=== PATIENT | male | born 1945 | race Caucasian/White ===

== ENCOUNTER 2016-08-14 09:49 | Inpatient (IN) | payer OTHER ==
[2016-07-22 15:13] VITALS: BMI 31.0
--- NOTE | 2016-07-22 15:56 | PAT Medication Instructions ---
Service Date Jul 22, 2016. Current Home Medication List No Active Prescriptions or Reported Meds Medication Instructions For Your Scheduled Surgery No Active Prescriptions or Reported Meds-- Please contact PAT department if started on any medications prior to surgery. If you have any questions please call us at [phone] (Madhavi Carrington PA-C) or [phone] or [phone]
[2016-07-22 16:39] LABS: BASO % 0.2 %; BASO ABS # 0.02 K/uL (0-0.2); COMPLETE YES; EOS % 0.7 %; HEMATOCRIT 42.7 % (42-52); IG% 0.2 %; LYMPH % 28.8 %; LYMPH ABS # 2.48 K/uL (1.2-3.4); MEAN CELL VOLUME 93.2 fL (80-100); MEAN CORPUSCULAR HEMOGLOBIN 31.9 pg (25-34); MEAN CORPUSCULAR HGB CONC 34.2 g/dl (32-36); MEAN PLATELET VOLUME 10.2 fL (7.4-10.4); MONO % 12.1 %; PLATELET COUNT 253 K/uL (130-400); RED BLOOD COUNT 4.58 M/uL (4.7-6.1); URINE APPEARANCE CLEAR (CLEAR); URINE BILIRUBIN NEG (NEG); URINE COLOR YELLOW; URINE NITRITE NEG (NEG); URINE SPECIFIC GRAVITY 1.016 (1.000-1.030); UROBILINOGEN NEG (NEG); ZZUR CULT IF INDIC CLEAN CATCH NO
--- NOTE | 2016-07-22 16:39 | DIAGNOSTIC IMAGING REPORT ---
CHEST 2 VIEWS ROUTINE CLINICAL HISTORY: Preoperative chest COMPARISON STUDY: No previous studies for comparison. FINDINGS: The cardiac and mediastinal contours are normal. There is no evidence of focal pulmonary consolidation. There is no evidence of failure. No pleural effusions are visualized.[ IMPRESSION: No active disease in the chest. Electronically signed by: Moise Roe M.D. 07/22/2016 4:38 PM
[2016-07-22 16:45] LABS: MANUAL MICROSCOPIC REQUIRED? NO; REVIEW REQ? NO
[2016-07-22 16:54] LABS: PARTIAL THROMBOPLASTIN RATIO 1.1; PROTHROMBIN TIME (PATIENT) 10.7 SECONDS (9.0-12.0)
[2016-07-22 16:59] LABS: BUN/CREATININE RATIO 25.1 (10-20); CALCIUM 8.6 mg/dl (8.5-10.1); CREATININE 0.89 mg/dl (0.60-1.40); POTASSIUM 4.1 mmol/L (3.5-5.1)
[2016-07-23 05:50] LABS: ESTIMATED AVERAGE GLUCOSE 128 mg/dl; HA1C FLAG Normal (Normal)
--- NOTE | 2016-08-13 19:45 | HISTORY & PHYSICAL EXAMINATION ---
DATE OF ADMISSION: 08/14/2016 CHIEF COMPLAINT: Chronic right knee pain. HISTORY OF PRESENT ILLNESS: This is a 70-year-old male patient of Dr. Reyes'dawson complaining of chronic right knee pain, longstanding, now progressively getting worse. The patient has been diagnosed with end-stage osteoarthritis per clinical and radiographic exams. He has failed conservative treatment including acetaminophen and intraarticular injections. He has increased pain with weightbearing activities and his pain does interfere with his activities of daily living. PAST MEDICAL HISTORY: Acid reflux, otherwise the patient is a healthy 70-year-old male with no history of heart problems, lung problems, diabetes or cancer history. SOCIAL HISTORY: Nonsmoker, occasional drinker. PAST SURGICAL HISTORY: Back surgery, hernia surgery, left knee arthroscopy and carpal tunnel surgery. FAMILY HISTORY: Noncontributory. REVIEW OF SYSTEMS: The patient complains of chronic right knee pain, otherwise denies any shortness of breath, chest pain, nausea, vomiting or any other joint complaints. MEDICATIONS: None. ALLERGIES: None. PHYSICAL EXAMINATION: GENERAL: Well-developed, well-nourished 70-year-old male in no acute distress. He is alert and oriented x3 and pleasant. HEENT: Normocephalic, atraumatic. Extraocular motions are intact. Pupils are equal and reactive to light. HEART: Regular rate and rhythm, no murmurs appreciated. LUNGS: Clear. ABDOMEN: Soft, nontender, bowel sounds are present. EXTREMITIES: Right knee reveals a limited range of a negative 15-125 degrees. He has medial joint line tenderness with a varus deformity. He has a mild effusion. He has 5/5 strength. NEUROLOGIC: Neurovascularly, he is intact in his right lower extremity. DIAGNOSES: Right knee end-stage osteoarthritis, otherwise a healthy 70-year-old male. He does have acid reflux. PLAN: The patient was advised of his diagnosis. Indications, risks, benefits, postop course have all been reviewed. The patient wishes to proceed with a right total knee arthroplasty. Necessary consent forms, preoperative testing and clearances will be obtained.
[2016-08-14] VITALS (9 sets, daily range): BP systolic 136–166; BP diastolic 70–92; PULSE 66–95; TEMP 36.3–36.9; O2SAT 94–97; Ht 177.8 cm; Wt 99.0 kg
[~2016-08-14] VITALS: Ht 177.8 cm; Wt 99.0 kg
[~2016-08-14 09:49] MED LIST: ACETAMINOPHEN 500 MG TAB PO SCH; BUPIVACAINE 0.25% 30 ML VIAL ONE; BUPIVACAINE 0.5 % 5 MG/1 ML PF 10ML VIAL ONE; CEFAZOLIN 2000 MG/60 ML D5W 60 ML IV SCH; CeleBREX 200 MG CAP PO SCH; DEXAMETHASONE 4 MG TAB PO SCH; FAMOTIDINE 20 MG TAB PO SCH; FENTANYL CITRATE INJ 50 MCG/1 ML 2 ML VIAL ONE; GABAPENTIN 300 MG CAP PO SCH; LACTATED RINGER'S 1000ML 500 ML IV ONE; METOCLOPRAMIDE HCL 10 MG TAB PO SCH; MIDAZOLAM HCL 1 MG/ML 2ML VIAL ONE; ROPIVACAINE 5MG/ML 30 ML 150 MG, BUPIVACAINE/EPINEPHR 0.5% MPF 30 ML, KETOROLAC TROMETH... INFIL SCH
[2016-08-14] MEDS ORDERED: ORTHO JOINT ANESTHETIC ONE (10:38)
--- NOTE | 2016-08-14 10:45 | History & Physical Bridge Note ---
H&P Re-Evaluation Bridge Note: I have examined the patient, reviewed the History & Physical and in the interval since the performance of the History & Physical I have noted the following changes of clinical significance: No changes noted
[2016-08-14] MEDS ORDERED: MIDAZOLAM HCL 1 MG/ML 2ML VIAL ONE (11:35)
[2016-08-14] MEDS ORDERED: PHENYLEPHRINE HCL INJ 10 MG/ML VIAL ONE (12:09)
[2016-08-14] MEDS ORDERED: EpHEDrine SULFATE INJ 50 MG/ML AMP ONE (12:09)
[2016-08-14] MEDS ORDERED: PROPOFOL IV EMULSION 10 MG/ML 20 ML VIAL IV ONE ×2 (12:09→13:52)
[2016-08-14] MEDS ORDERED: POVIDONE-IODINE OP SOLN 30 ML BTL TOP ONE (13:39)
[2016-08-14] MEDS ORDERED: BACITRACIN 50000 UNIT VIAL IR ONE (13:39)
[2016-08-14] MEDS ORDERED: TRAMADOL HCL 50 MG TAB PO PRN (14:30)
[2016-08-14] MEDS ORDERED: MoRPHine SULFATE 2 MG/ML CARP IV PRN ×2 (14:30→16:00)
[2016-08-14] MEDS ORDERED: SOD PHOSPHATE/SOD BIPHOSPHATE ENEMA 132 ML BTL PR PRN (14:30)
[2016-08-14] MEDS ORDERED: BISACODYL 10 MG SUPP PR PRN (14:30)
[2016-08-14] MEDS ORDERED: ZOLPIDEM TARTRATE 5 MG TAB PO PRN (14:30)
[2016-08-14] MEDS ORDERED: MAGNESIUM HYDROXIDE SUSP 30 ML UDC PO PRN (14:30)
[2016-08-14] MEDS ORDERED: ONDANSETRON INJ 2 MG/ML 2 ML VIAL IV PRN (14:30)
[2016-08-14] MEDS ORDERED: OXYCODONE HCL IR 5 MG TAB (IMMEDIATE RELEASE) PO PRN (14:30)
--- NOTE | 2016-08-14 14:49 | Anesthesiology Progress Note ---
Anesthesia Post Op Note Date & Time Aug 14, 2016 at 14:49 Vital Signs Pain Intensity: 0 Vital Signs Past 12 Hours Date Time Temp Pulse Resp B/P Pulse Ox O2 Delivery O2 Flow Rate FiO2 08/14/16 14:25 75 16 119/69 94 Nasal Cannula 4 08/14/16 14:15 36.9 83 16 105/72 94 Nasal Cannula 4 08/14/16 10:30 36.9 66 18 166/92 95 Room Air Notes Mental Status: alert / awake / arousable, participated in evaluation Nausea / Vomiting: adequately controlled Pain: adequately controlled Airway Patency, RR, SpO2: stable & adequate BP & HR: stable & adequate Hydration State: stable & adequate Neuraxial Anesthesia: was administered, sensory block is resolving Anesthetic Complications: no major complications apparent Pt doing well.
--- NOTE | 2016-08-14 14:49 | DIAGNOSTIC IMAGING REPORT ---
RIGHT KNEE 1 OR 2 VIEWS ROUTINE CLINICAL HISTORY: Right knee arthroplasty. COMPARISON: None FINDINGS: Alignment of the total right knee arthroplasty is anatomic. There is no fracture or unexpected radiopaque foreign body. Drains and skin danita are present. IMPRESSION: Expected findings following total right knee arthroplasty. Electronically signed by: Biju Philip M.D. 08/14/2016 2:47 PM Dictated Date/Time: 08/14/2016 2:46 PM
[2016-08-14] MEDS ORDERED: D5W AND 1/2NSS + 20MEQ KCL 1,000 ML IV SCH (16:00)
[2016-08-14] MEDS ORDERED: MoRPHine SULFATE 4 MG/ML 1 ML CARP\\VIAL IV PRN (16:00)
--- NOTE | 2016-08-14 16:00 | OPERATIVE REPORT ---
DATE OF OPERATION: 08/14/2016 INDICATION FOR PROCEDURE: The patient is a 70-year-old male with chronic bilateral knee pain, right greater than left. He has history of previous open knee surgery years ago. He has had progressive osteoarthritis and now disabling pain. He has bone on bone in the medial compartment on x-rays and has tricompartmental DJD. PREOPERATIVE DIAGNOSES: End-stage osteoarthritis, right knee. Also prior open arthrotomy, knee surgery in the past. POSTOPERATIVE DIAGNOSES: Same. Also prior open arthrotomy, knee surgery in the past. 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 PROCEDURE: Right total knee arthroplasty. SURGEON: Dr. Reyes. SET UP MECHANIC AUTOMATIC LINE: ELÍAS Carmona. ANESTHESIA: Spinal, regional block and Orthomix injection. OPERATIVE PROCEDURE: The patient taken to the operating room, anesthetized under anesthesia as dictated. He was placed supine on the operating room table. Pneumatic tourniquet was placed on the right upper thigh. Right lower extremity was prepped and draped in sterile fashion. Exam demonstrated he had about a 10-degree flexion contracture. He had flexion to about 125 degrees. He had no pseudolaxity and no endpoint with Dylan exam. His right knee was sterilely prepped and draped with ChloraPrep, elevated, exsanguinated with Esmarch bandage. Pneumatic tourniquet was raised to 325 mmHg. I used the [employer] \T\ Nephew Legion knee replacement system with [employer] MRI templating. He is sized for a preop 7 femur, 7 tibia. The patient had an old scar which was a curvilinear medial parapatellar scar. We utilized this old scar and extended it somewhat proximally for our knee incision. Then subcutaneous flaps were elevated and then the medial retinaculum was incised and extended up into the mid third of the quadriceps tendon and extended down to the medial tibial tubercle. Intra-articular findings demonstrated that the patient had severe tricompartmental DJD, chronic ACL tear, bone on bone in both medial and lateral compartments and grade 3 and 4 changes in the patellofemoral joint. To expose the knee, the infrapatellar fat pad was resected. Fat pad over the anterior femur was resected for placement of the component in that area. The synovial bands were released. The PCL was released off the femoral attachment and the lateral meniscus was resected. The femur was exposed. The custom femoral cutting block was pinned in position and the distal femoral cut was made. The knee was extended and a subperiosteal peel lateral release was performed around the patella. Patella width was measured and width was reproduced using a freehand cut technique and a 35 patellar component. Drill holes for the component were made and the excess lateral facet was beveled off to prevent any impingement. The femur was re-exposed with retractors. The 4-in-1 cutting block for the 7 femur was pinned in position. The anterior, posterior and chamfer cuts were made. The tibia was then subluxed. The custom tibial cutting block was inserted and pinned in position. The proximal tibial cut was made. We did releases around the medial and posterior medial side to balance the ligaments and flexion, extension gaps were balanced. The remnants of the PCL were all resected and there was some posterior horn of medial meniscus resected at this time. All osteophytes were resected. The tibia was re-exposed. After trimming down the tibial osteophytes, it was felt that we should downsize the tibia to size 6. The 6 trial tibia was externally rotated in line with the tibial tubercle, pinned in position. The punch for the stem was used. Then the femoral trial was inserted, centered and the notch cutting devices were used and a collet was placed. Then 11 high-flex poly insert gave balanced ligaments through full range of motion and patella had just some slight liftoff, so we chose to do a lateral release, leaving the synovium intact. Patella tracked centrally at this point. The trials were removed. The Orthomix anesthetic cocktail was injected. The knee was copiously irrigated with pulsatile lavage antibiotic solution with bacitracin. The final components were cemented into position with Simplex G cement. While the cement cured, we used the Betadine soak per protocol. Two Hemovac drains were brought out laterally and then after copiously irrigating with antibiotic solution and bacitracin, the medial retinaculum and quadriceps tendon were closed with interrupted [id number] #1 Vicryl sutures. The knee was taken through full range of motion and the repair was secure. The knee was stable. The subcutaneous tissue closed with interrupted 2-0 Vicryl, skin closed with danita. Sterile dressings were applied and the patient tolerated the procedure well. ELÍAS Carmona was my electrician station assistant. He functioned as electrician station assistant in the entire procedure. He assisted in soft tissue retraction, instrument management, knee positioning and performed the fascial, subcutaneous and skin closure. He will participate in postoperative care of the patient. I attest to the content of the Intraoperative Record and any orders documented therein. Any exceptio ns are noted below.
[2016-08-14] MEDS: LACTATED RINGER'S 1000ML 1,000 ML IV SCH ×2 (16:25→20:48)
[2016-08-14] MEDS: TRANEXAMIC ACID INJ 1,000 MG in SODIUM CHLORIDE 0.9% 100ML 100 ML IV SCH ×2 (16:25→20:07)
[2016-08-14] MEDS: ACETAMINOPHEN 500 MG TAB PO SCH ×2 (16:29→23:36)
[2016-08-14] MEDS ORDERED: HydrALAZINE HCL 20 MG/ML VIAL IV. PRN (17:45)
[2016-08-14 19:30] LABS: BASO % 0.2 %; BASO ABS # 0.02 K/uL (0-0.2); COMPLETE YES; HEMATOCRIT 40.3 % (42-52); IG% 0.3 %; LYMPH % 7.3 %; LYMPH ABS # 0.85 K/uL (1.2-3.4); MEAN CELL VOLUME 92.2 fL (80-100); MEAN CORPUSCULAR HEMOGLOBIN 31.8 pg (25-34); MEAN CORPUSCULAR HGB CONC 34.5 g/dl (32-36); MONO % 1.4 %; NEUT % 90.8 %; PLATELET COUNT 238 K/uL (130-400); RED BLOOD COUNT 4.37 M/uL (4.7-6.1)
[2016-08-14 19:48] LABS: CALCIUM 8.3 mg/dl (8.5-10.1); CREATININE 1.3 mg/dl (0.60-1.40); POTASSIUM 4.6 mmol/L (3.5-5.1)
[2016-08-14] MEDS ORDERED: GLUCOSE 10 TABS/TUBE PO PRN (20:00)
[2016-08-14] MEDS ORDERED: DEXTROSE 50% 50 ML SYR IV PRN (20:00)
[2016-08-14] MEDS ORDERED: GLUCAGON FOR INJ 1 MG VIAL SQ PRN (20:00)
[2016-08-14] MEDS ORDERED: GLUCOSE 40% GEL 15 GM TUBE PO PRN (20:00)
--- NOTE | 2016-08-14 20:00 | Medical Consult ---
Consultation Date of Consultation: Aug 14, 2016. Attending Physician: Osmel Reyes M.D. Reason for Consultation: Medical management History of Present Illness This is a 70 y/o male with a history of GERD and pre-diabetes who presents s/p right TKA with Dr. Reyes on 08/14 for medical management. The patient reports feeling well postoperatively. He states that he still has some tingling in his legs but denies any other complaints. He is tolerating his PO diet well. He has urinated without any difficulties. He denies passing any gas or having a bowel movement yet. The patient denies fevers, chills, sweats, chest pain, palpitations, claudication, cough, wheezing, shortness of breath, nausea, vomiting, abdominal pain, dysuria, hematuria, urinary retention, paralysis, and weakness. Family History Cancer (unknown type) FATHER Myocardial infarction MOTHER Social History Smoking Status: Former Smoker (quit 1 month ago) Smokeless Tobacco Use: No Alcohol Use: heavy (3-4 beers a day, up to 6-8 when out camping) Drug Use: none Marital Status: Housing Status: lives alone Occupation Status: employed Allergies Coded Allergies: No Known Allergies (Unverified , 08/14/16) Current Inpatient Medications Current Inpatient Medications Medications (Trade) Dose Ordered Sig/Vivienne Route Start Time Stop Time Status Last Admin Dose Admin Lactated Ringer's 1,000 ml @ 60 mls/hr [id number] IV 08/14/16 06:00 09/13/16 05:59 Potassium Chloride/Dextrose/ Sod Cl 1,000 ml @ 100 mls/hr Q10H IV 08/14/16 16:00 08/15/16 14:23 08/14/16 16:28 100 MLS/HR Cefazolin Sodium/ Dextrose (Ancef Iv/D5 50ml) 60 ml @ 100 mls/hr Q8H IV 08/14/16 20:00 08/15/16 04:35 Celecoxib (CeleBREX CAP) 200 mg BID PO 08/14/16 21:00 09/13/16 20:59 Oxycodone HCl (Roxicodone Immediate Rel Tab) 1 TABLET FOR PAIN RATING... Q4H PRN PO 08/14/16 14:30 08/28/16 14:29 Oxycodone HCl (Oxycontin Tab) 10 mg Q12 PO 08/14/16 21:00 08/28/16 20:59 Acetaminophen (Tylenol Tab) 1,000 mg Q8H PO 08/14/16 16:00 09/13/16 15:59 08/14/16 16:29 1,000 MG Magnesium Hydroxide (Milk Of Magnesia Susp) 30 ml Q6H PRN PO 08/14/16 14:30 09/13/16 14:29 Bisacodyl (Dulcolax Supp) 10 mg DAILY PRN DE 08/14/16 14:30 09/13/16 14:29 Sodium Biphosphate/ Sodium Phosphate (Fleet Enema) 132 ml DAILY PRN DE 08/14/16 14:30 09/13/16 14:29 Docusate Sodium (coLACE CAP) 100 mg BID PO 08/14/16 21:00 09/13/16 20:59 Diphenhydramine HCl (Benadryl Cap) 25 mg Q8H PRN PO 08/14/16 14:30 09/13/16 14:29 Zolpidem Tartrate (Ambien Tab) 5 mg HSZ PRN PO 08/14/16 14:30 09/13/16 14:29 Multivitamins (Multivitamin Tab) 1 tab QAM PO 08/15/16 09:00 09/14/16 08:59 Ondansetron HCl (Zofran Inj) 4 mg Q6H PRN IV 08/14/16 14:30 09/13/16 14:29 Pantoprazole Sodium (Protonix Tab) 40 mg QAM PO 08/15/16 09:00 09/14/16 08:59 Tramadol HCl (Ultram Tab) 1 tablet for pain rating... Q4H PRN PO 08/14/16 14:30 09/13/16 14:29 Aspirin (Ecotrin Tab) 81 mg BID PO 08/14/16 21:00 09/13/16 20:59 Morphine Sulfate (MoRPHine SULFATE INJ) 2 mg Q2H PRN IV 08/14/16 16:00 08/28/16 15:59 Morphine Sulfate (MoRPHine SULFATE INJ) 4 mg Q2H PRN IV 08/14/16 16:00 08/28/16 15:59 Hydralazine HCl (HydrALAZINE INJ) 10 mg Q6H PRN IV. 1/12/17 17:45 09/13/16 17:44 Review of Systems See HPI for pertinent positives and negatives. All other systems reviewed and negative. Physical Exam Date Time Temp Pulse Resp B/P Pulse Ox O2 Delivery O2 Flow Rate FiO2 08/14/16 17:25 36.3 95 16 160/84 96 Nasal Cannula 2.0 08/14/16 16:31 36.3 88 16 158/90 94 Nasal Cannula 2.0 08/14/16 15:55 36.3 80 16 152/84 94 Nasal Cannula 2.0 08/14/16 15:30 97 Nasal Cannula 2.0 08/14/16 15:30 97 Nasal Cannula 2.0 08/14/16 15:10 37.0 75 16 141/83 95 Nasal Cannula 4 08/14/16 14:55 37.0 87 16 154/89 94 Nasal Cannula 4 08/14/16 14:45 86 16 145/60 98 Nasal Cannula 4 08/14/16 14:35 87 16 135/70 98 Nasal Cannula 4 08/14/16 14:25 75 16 119/69 94 Nasal Cannula 4 08/14/16 14:15 36.9 83 16 105/72 94 Nasal Cannula 4 08/14/16 10:30 36.9 66 18 166/92 95 Room Air General Appearance: WD/WN, no apparent distress, + obese Head: normocephalic, atraumatic Eyes: normal inspection, PERRL, EOMI ENT: normal ENT inspection, hearing grossly normal, pharynx normal Neck: supple, no JVD, trachea midline Respiratory/Chest: lungs clear, normal breath sounds, no respiratory distress Cardiovascular: regular rate, rhythm, no gallop, no murmur Abdomen/GI: normal bowel sounds, non tender, soft Extremities/Musculoskelatal: normal inspection, no calf tenderness, no pedal edema Neurologic/Psych: alert, normal mood/affect, oriented x 3 Skin: normal color, warm/dry, no rash Laboratory Results Last 24 Hours Test 08/14/16 10:17 08/14/16 14:21 08/14/16 19:15 Bedside Glucose 123 mg/dl 134 mg/dl White Blood Count 11.70 K/uL Red Blood Count 4.37 M/uL Hemoglobin 13.9 g/dL Hematocrit 40.3 % Mean Corpuscular Volume 92.2 fL Mean Corpuscular Hemoglobin 31.8 pg Mean Corpuscular Hemoglobin Concent 34.5 g/dl Platelet Count 238 K/uL Mean Platelet Volume 10.0 fL Neutrophils (%) (Auto) 90.8 % Lymphocytes (%) (Auto) 7.3 % Monocytes (%) (Auto) 1.4 % Eosinophils (%) (Auto) 0.0 % Basophils (%) (Auto) 0.2 % Neutrophils # (Auto) 10.64 K/uL Lymphocytes # (Auto) 0.85 K/uL Monocytes # (Auto) 0.16 K/uL Eosinophils # (Auto) 0.00 K/uL Basophils # (Auto) 0.02 K/uL RDW Standard Deviation 46.1 fL RDW Coefficient of Variation 13.5 % Immature Granulocyte % (Auto) 0.3 % Immature Granulocyte # (Auto) 0.03 K/uL Sodium Level 138 mmol/L Potassium Level 4.6 mmol/L Chloride Level 104 mmol/L Carbon Dioxide Level 22 mmol/L Anion Gap 12.0 mmol/L Blood Urea Nitrogen 20 mg/dl Creatinine 1.30 mg/dl Est Creatinine Clear Calc Drug Dose 61.5 ml/min Estimated GFR () 63.6 Estimated GFR (Non- 54.9 BUN/Creatinine Ratio 15.0 Random Glucose 270 mg/dl Calcium Level 8.3 mg/dl Assessment & Plan 70 y/o male with a history of GERD and pre-diabetes who presents s/p right TKA with Dr. Reyes on 08/14 for medical management. -Pain management, DVT prophylaxis, and PT/OT as per primary team Elevated BP--no h/o HTN, is routinely seen by PCP -Cover with hydralazine 10 mg IV q6h prn SBP >160 GERD--pt manages this by avoiding spicy foods, no medications at home -Agree with pantoprazole 40 mg PO qd ordered by primary team Pre-diabetes--pt follows up with his PCP every 3 months to monitor his sugars. Last HgbA1c checked on was 6.1. Sugars have been elevated post op -Insulin sliding scale, goal range 140-180 -Check BSGs q ac and qhs Heavy drinking--Pt states that he goes some nights without any alcohol at all. He denies any h/o withdrawal symptoms. He states that he will be fine without anything. Code Status -Level I, FULL RESUSCITATION STATUS Thank you for this consultation. We will continue to follow. I agree with PA assessment and plan and have seen and examined pt myself s/p tka Pain controlled Monitor for acute blood loss anemia GERD controlled DVT ppx and dispo per primary team
[2016-08-14] MEDS: CEFAZOLIN IV 2,000 MG in DEXTROSE 5% 50ML 50 ML IV SCH (20:38)
[2016-08-14] MEDS: ASPIRIN 81 MG ECTAB PO SCH (20:45)
[2016-08-14] MEDS: CeleBREX 200 MG CAP PO SCH (20:45)
[2016-08-14] MEDS: DOCUSATE SODIUM 100 MG CAP PO SCH (20:45)
[2016-08-14] MEDS: OXYCODONE HCL 10 MG TABCR (OXYCONTIN) PO SCH (20:48)
[2016-08-14] MEDS: INSULIN ASPART 100 UNITS/ML 3 ML PEN SC SCH (21:00)
[2016-08-14] MEDS ORDERED: NURSING VERBAL MED ORDER ONE (21:15)
[2016-08-14] MEDS: SODIUM CHLORIDE 0.9% 1000ML 1,000 ML IV SCH (21:30)
[2016-08-15 04:00] VITALS: BP 133/83; PULSE 64; TEMP 36.6; O2SAT 95
[2016-08-15] MEDS: CEFAZOLIN IV 2,000 MG in DEXTROSE 5% 50ML 50 ML IV SCH (04:19)
[2016-08-15 06:16] LABS: HEMATOCRIT 34.2 % (42-52); MEAN CELL VOLUME 91.9 fL (80-100); MEAN CORPUSCULAR HGB CONC 34.8 g/dl (32-36); MEAN PLATELET VOLUME 9.6 fL (7.4-10.4); PLATELET COUNT 216 K/uL (130-400); RED BLOOD COUNT 3.72 M/uL (4.7-6.1); WHITE BLOOD COUNT 14.63 K/uL (4.8-10.8)
[2016-08-15 06:49] LABS: POTASSIUM 4.2 mmol/L (3.5-5.1)
[2016-08-15] MEDS: SODIUM CHLORIDE 0.9% 1000ML 1,000 ML IV SCH ×2 (06:59→18:16)
[2016-08-15] MEDS: ASPIRIN 81 MG ECTAB PO SCH ×2 (07:00→20:43)
[2016-08-15] MEDS: DOCUSATE SODIUM 100 MG CAP PO SCH ×2 (07:00→20:43)
[2016-08-15] MEDS: PANTOprazole SOD 40 MG TAB PO SCH (07:00)
[2016-08-15] MEDS: ACETAMINOPHEN 500 MG TAB PO SCH ×3 (07:00→23:41)
[2016-08-15] MEDS: CeleBREX 200 MG CAP PO SCH ×2 (07:00→20:44)
[2016-08-15] MEDS: MULTIVITAMIN TAB PO SCH (07:01)
[2016-08-15] MEDS: OXYCODONE HCL 10 MG TABCR (OXYCONTIN) PO SCH ×2 (07:01→20:44)
[2016-08-15 08:04] VITALS: BP 138/84; PULSE 56; TEMP 36.4; O2SAT 95; O2SAT 96
[2016-08-15 08:07] VITALS: O2SAT 96
--- NOTE | 2016-08-15 08:27 | Anesthesiology Progress Note ---
Anesthesia Post Op Note Date & Time Aug 15, 2016 at 08:26 Vital Signs Pain Intensity: 0.0 Vital Signs Past 12 Hours Date Time Temp Pulse Resp B/P Pulse Ox O2 Delivery O2 Flow Rate FiO2 08/15/16 08:07 96 Room Air 08/15/16 08:04 36.4 56 16 138/84 96 Room Air 08/15/16 07:00 Room Air 08/15/16 04:00 36.6 64 18 133/83 95 Room Air 08/14/16 23:30 Room Air 08/14/16 23:29 36.7 67 16 146/70 96 Room Air 08/14/16 22:12 136/78 08/14/16 20:35 158/77 Notes Mental Status: alert / awake / arousable, participated in evaluation Pt Amnestic to Procedure: Yes Nausea / Vomiting: adequately controlled Pain: adequately controlled Airway Patency, RR, SpO2: stable & adequate BP & HR: stable & adequate Hydration State: stable & adequate Neuraxial Anesthesia: was administered, sensory block resolved Anesthetic Complications: no major complications apparent
--- NOTE | 2016-08-15 08:30 | Orthopedic Progress Note ---
Orthopedic Progress Note Date of Service Aug 15, 2016. 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 Objective calves soft nontender, N/V intact, capillary refill less than 2 sec., dressing C /D/I, A&O x3, toes mobile Date Time Temp Pulse Resp B/P Pulse Ox O2 Delivery O2 Flow Rate FiO2 08/15/16 08:07 96 Room Air 08/15/16 08:04 36.4 56 16 138/84 96 Room Air 08/15/16 07:00 Room Air 08/15/16 04:00 36.6 64 18 133/83 95 Room Air 08/14/16 23:30 Room Air 08/14/16 23:29 36.7 67 16 146/70 96 Room Air 08/14/16 22:12 136/78 08/14/16 20:35 158/77 08/14/16 20:01 36.6 79 16 165/84 96 Room Air 08/14/16 17:25 36.3 95 16 160/84 96 Nasal Cannula 2.0 08/14/16 16:31 36.3 88 16 158/90 94 Nasal Cannula 2.0 08/14/16 15:55 36.3 80 16 152/84 94 Nasal Cannula 2.0 08/14/16 15:30 97 Nasal Cannula 2.0 08/14/16 15:30 97 Nasal Cannula 2.0 08/14/16 15:10 37.0 75 16 141/83 95 Nasal Cannula 4 08/14/16 14:55 37.0 87 16 154/89 94 Nasal Cannula 4 08/14/16 14:45 86 16 145/60 98 Nasal Cannula 4 08/14/16 14:35 87 16 135/70 98 Nasal Cannula 4 08/14/16 14:25 75 16 119/69 94 Nasal Cannula 4 08/14/16 14:15 36.9 83 16 105/72 94 Nasal Cannula 4 08/14/16 10:30 36.9 66 18 166/92 95 Room Air Laboratory Results 24 Hours: Test 08/14/16 19:15 1/13/17 05:50 White Blood Count 11.70 K/uL Red Blood Count 4.37 M/uL Hemoglobin 13.9 g/dL 11.9 g/dL Hematocrit 40.3 % 34.2 % Mean Corpuscular Volume 92.2 fL Mean Corpuscular Hemoglobin 31.8 pg Mean Corpuscular Hemoglobin Concent 34.5 g/dl Platelet Count 238 K/uL Mean Platelet Volume 10.0 fL Neutrophils (%) (Auto) 90.8 % Lymphocytes (%) (Auto) 7.3 % Monocytes (%) (Auto) 1.4 % Eosinophils (%) (Auto) 0.0 % Basophils (%) (Auto) 0.2 % Neutrophils # (Auto) 10.64 K/uL Lymphocytes # (Auto) 0.85 K/uL Monocytes # (Auto) 0.16 K/uL Eosinophils # (Auto) 0.00 K/uL Basophils # (Auto) 0.02 K/uL Assessment & Plan Assessment: POD #1, Right TKA Plan: PT/ OT DVT proph- ASA D/C planning- Home w HEP. As per medicine. Inhouse Planning Pain Management: Celebrex, Oxycontin, Morphine, PO Tylenol, Oxy IR DVT Prophylaxis: TEDs, SCDs, ASA Discharge Planning Discharge Planning: home Pain Management: Celebrex, Oxycontin, PO Tylenol, Oxy IR DVT Prophylaxis: TEDs, ASA Therapy: Physical Therapy, Occupational Therapy
[2016-08-15] MEDS ORDERED: ONDA8TAB6 PO (08:33)
[2016-08-15] MEDS ORDERED: CLB200 PO (08:33)
[2016-08-15] MEDS ORDERED: OXYSR10 PO (08:33)
[2016-08-15] MEDS ORDERED: RXC5 PO (08:33)
[2016-08-15] MEDS ORDERED: ASPEC81 PO (08:33)
[2016-08-15] MEDS: INSULIN ASPART 100 UNITS/ML 3 ML PEN SC SCH ×4 (08:33→20:43)
[2016-08-15] MEDS ORDERED: ACET-1138 PO (08:33)
--- NOTE | 2016-08-15 08:34 | Discharge Instructions ---
Discharge Instructions Admission Reason for Admission: Right Knee Degenerative Joint Disease Discharge Discharge Diagnosis / Problem: Right TKA Discharge Goals Goal(s): Improve function Activity Recommendations Activity Limitations: as noted below . Instructions / Follow-Up Instructions / Follow-Up ACTIVITY RECOMMENDATIONS: SELF CARE INSTRUCTIONS AFTER TOTAL KNEE REPLACEMENT A. You may need to continue a physical therapy program after discharge from the hospital. There are several options available to you. Your doctor will assist you in selecting the best one for you. 1. An out-patient facility 2 to 3 times a week for therapy or home therapy. 2. Continue working on all exercises taught to you in the hospital. Your goals should be to increase bending of your knee to 90 degrees and beyond and to fully straighten your knee. B. You may progress at your own pace from walking with a walker or crutches to a cane; then to no assistive devices. C. Make walking a part of your daily routine. Be up as much as comfortable with rest periods throughout the day. Rest with leg elevation is very important. Use the ice wrap frequently for the first 3-4 weeks. D. There are no restrictions on activities. You may ride in a car, shop, participate in supervisor sewing department and all social activities. E. Wear the long elastic stockings (RUBY hose) 20 hours a day for 2 weeks after surgery. They can be removed several times a day for laundering and for a bath. F. You may shower, no tub baths until cleared by your doctor. SPECIAL CARE INSTRUCTIONS: VERY IMPORTANT TO READ AND REVIEW A. There are a few signs you need to watch for after you are home. Call [facility] if you notice any of the followin. Increased severe knee pain. Some pain is expected especially when you exercise. 2. Increased swelling in your leg or knee; pain or swelling of the calf muscle in either lower leg. 3. Any fluid drainage from the incision. 4. Shortness of breath or chest pain. B. Please call [facility] at if you have any concerns or questions about your operation or recovery. The doctor or his nurse will return your call promptly. C. You must take antibiotics before dental work, bladder, bowel or other surgery. Your doctor will provide you with a permanent care to carry describing this precaution. IMPORTANT: * REMEMBER TO TAKE ASPIRIN, 81 MG, TWICE DAILY FOR 4 WEEKS UNLESS OTHERWISE DIRECTED. THIS IS YOUR BLOOD THINNER. * HIGH RISK PATIENTS MAY BE PRESCRIBED A STRONGER BLOOD THINNER. THIS WILL BE PROVIDED AT DISCHARGE. * CALL IF INCREASED PAIN, REDNESS, DRAINAGE OR FEVER GREATER THAT 101. * WEAR RUBY HOSE 20 HOURS PER DAY FOR 2 WEEKS. * YOU MAY HAVE A LARGE BAND-AID LIKE DRESSING (SILVERON). THIS WILL REMAIN ON YOUR INCISION FOR 7 DAYS, THEN CAN BE REMOVED. IF INCISION IS LEAKING THROUGH DRESSING, CALL THE OFFICE . FOLLOW UP VISIT: If appointment is not already scheduled: Please call [facility] to make a follow-up appointment for 2 weeks after your surgery at . Current Hospital Diet Patient's current hospital diet: Regular Diet Discharge Diet Recommended Diet: Regular Diet Procedures Procedures Performed: Right Total Knee Arthroplasty Pending Studies Studies pending at discharge: no Laboratory Results Hemoglobin A1c Test 07/22/16 16:09 Range/Units Estimated Average Glucose 128 mg/dl Hemoglobin A1c 6.1 H 4.5-5.6 % Medical Emergencies . Who to Call and When: Medical Emergencies: If at any time you feel your situation is an emergency, please call 911 immediately. . Non-Emergent Contact Non-Emergency issues call your: Primary Care Provider . "Provider Documentation" section prepared by Tristen Kim. VTE Core Measure Inpt VTE Proph given/why not?: Other Anticoagulation (asa), T.E.D. Stockings, SCD's
--- NOTE | 2016-08-15 10:04 | Hospitalist Progress Note ---
Hospitalist Progress Note Date of Service Aug 15, 2016. Subjective Pt evaluation today including: conversation w/ patient, physical exam, chart review, lab review, review of inpatient medication list Voiding: no voiding problems, no incontinence Patient states he is feeling well. He is eating and drinking OK. Pain is a 0/ 10. He is passing gas, no BM postop. Patient denies any fever, chills, sweats, lightheadedness, dizziness, vision changes, CP, palpitations, edema, SOB, wheezing, cough, abdominal pain, nausea, vomiting, diarrhea, urinary symptoms, melena, numbness/tingling, weakness, muscle/joint pain, anxiety/depression, active bleeding, or new skin discoloration/changes. Medications Current Inpatient Medications Medications (Trade) Dose Ordered Sig/Vivienne Route Start Time Stop Time Status Last Admin Dose Admin Lactated Ringer's (Lr 1000ml) 1,000 ml @ 60 mls/hr [id number] IV 08/14/16 06:00 09/13/16 05:59 Celecoxib (CeleBREX CAP) 200 mg BID PO 08/14/16 21:00 09/13/16 20:59 08/15/16 07:00 200 MG Oxycodone HCl (Roxicodone Immediate Rel Tab) 1 TABLET FOR PAIN RATING... Q4H PRN PO 08/14/16 14:30 08/28/16 14:29 Oxycodone HCl (Oxycontin Tab) 10 mg Q12 PO 08/14/16 21:00 08/28/16 20:59 Acetaminophen (Tylenol Tab) 1,000 mg Q8H PO 08/14/16 16:00 09/13/16 15:59 08/15/16 07:00 1,000 MG Magnesium Hydroxide (Milk Of Magnesia Susp) 30 ml Q6H PRN PO 08/14/16 14:30 09/13/16 14:29 Bisacodyl (Dulcolax Supp) 10 mg DAILY PRN MD 08/14/16 14:30 09/13/16 14:29 Sodium Biphosphate/ Sodium Phosphate (Fleet Enema) 132 ml DAILY PRN MD 08/14/16 14:30 09/13/16 14:29 Docusate Sodium (coLACE CAP) 100 mg BID PO 08/14/16 21:00 09/13/16 20:59 08/15/16 07:00 100 MG Diphenhydramine HCl (Benadryl Cap) 25 mg Q8H PRN PO 08/14/16 14:30 09/13/16 14:29 Zolpidem Tartrate (Ambien Tab) 5 mg HSZ PRN PO 08/14/16 14:30 09/13/16 14:29 Multivitamins (Multivitamin Tab) 1 tab QAM PO 08/15/16 09:00 09/14/16 08:59 08/15/16 07:01 1 TAB Ondansetron HCl (Zofran Inj) 4 mg Q6H PRN IV 08/14/16 14:30 09/13/16 14:29 Pantoprazole Sodium (Protonix Tab) 40 mg QAM PO 08/15/16 09:00 09/14/16 08:59 08/15/16 07:00 40 MG Tramadol HCl (Ultram Tab) 1 tablet for pain rating... Q4H PRN PO 08/14/16 14:30 09/13/16 14:29 Aspirin (Ecotrin Tab) 81 mg BID PO 08/14/16 21:00 09/13/16 20:59 08/15/16 07:00 81 MG Morphine Sulfate (MoRPHine SULFATE INJ) 2 mg Q2H PRN IV 08/14/16 16:00 08/28/16 15:59 Morphine Sulfate (MoRPHine SULFATE INJ) 4 mg Q2H PRN IV 08/14/16 16:00 08/28/16 15:59 Hydralazine HCl (HydrALAZINE INJ) 10 mg Q6H PRN IV. 08/14/16 17:45 09/13/16 17:44 Glucose (Glucose 40% Gel) 15-30 GRAMS 15 GRAMS... UD PRN PO 08/14/16 20:00 09/13/16 19:59 Glucose (Glucose Chew Tab) 4-8 Tablets 4 Tabl... UD PRN PO 08/14/16 20:00 09/13/16 19:59 Dextrose (Dextrose 50% 50ML Syringe) 25-50ML OF 50% DW IV FOR... UD PRN IV 08/14/16 20:00 09/13/16 19:59 Glucagon (Glucagon Inj) 1 mg UD PRN SQ 08/14/16 20:00 09/13/16 19:59 Insulin Aspart SLIDING SCALE G... ACHS SC 08/14/16 21:00 09/13/16 20:59 Sodium Chloride (Nss 1000ml) 1,000 ml @ 100 mls/hr Q10H IV 08/14/16 21:30 09/13/16 21:29 08/15/16 06:59 100 MLS/HR Objective Vital Signs Date Time Temp Pulse Resp B/P Pulse Ox O2 Delivery O2 Flow Rate FiO2 08/15/16 08:07 96 Room Air 08/15/16 08:04 36.4 56 16 138/84 96 Room Air 08/15/16 07:00 Room Air 08/15/16 04:00 36.6 64 18 133/83 95 Room Air 08/14/16 23:30 Room Air 08/14/16 23:29 36.7 67 16 146/70 96 Room Air 08/14/16 22:12 136/78 08/14/16 20:35 158/77 08/14/16 20:01 36.6 79 16 165/84 96 Room Air 08/14/16 17:25 36.3 95 16 160/84 96 Nasal Cannula 2.0 08/14/16 16:31 36.3 88 16 158/90 94 Nasal Cannula 2.0 08/14/16 15:55 36.3 80 16 152/84 94 Nasal Cannula 2.0 08/14/16 15:30 97 Nasal Cannula 2.0 08/14/16 15:30 97 Nasal Cannula 2.0 08/14/16 15:10 37.0 75 16 141/83 95 Nasal Cannula 4 08/14/16 14:55 37.0 87 16 154/89 94 Nasal Cannula 4 08/14/16 14:45 86 16 145/60 98 Nasal Cannula 4 08/14/16 14:35 87 16 135/70 98 Nasal Cannula 4 08/14/16 14:25 75 16 119/69 94 Nasal Cannula 4 08/14/16 14:15 36.9 83 16 105/72 94 Nasal Cannula 4 08/14/16 10:30 36.9 66 18 166/92 95 Room Air Physical Exam General Appearance: no apparent distress Eyes: normal inspection, PERRL ENT: hearing grossly normal Neck: supple Respiratory/Chest: lungs clear, normal breath sounds, no respiratory distress, no accessory muscle use Cardiovascular: regular rate, rhythm, no edema Abdomen: normal bowel sounds, non tender, soft Extremities: no pedal edema, no calf tenderness Neurologic/Psychiatric: alert, normal mood/affect, oriented x 3 Skin: normal color, warm/dry, no rash Laboratory Results Last 24 Hours Test 08/14/16 10:17 08/14/16 14:21 08/14/16 19:15 08/14/16 20:40 Bedside Glucose 123 mg/dl 134 mg/dl 248 mg/dl White Blood Count 11.70 K/uL Red Blood Count 4.37 M/uL Hemoglobin 13.9 g/dL Hematocrit 40.3 % Mean Corpuscular Volume 92.2 fL Mean Corpuscular Hemoglobin 31.8 pg Mean Corpuscular Hemoglobin Concent 34.5 g/dl Platelet Count 238 K/uL Mean Platelet Volume 10.0 fL Neutrophils (%) (Auto) 90.8 % Lymphocytes (%) (Auto) 7.3 % Monocytes (%) (Auto) 1.4 % Eosinophils (%) (Auto) 0.0 % Basophils (%) (Auto) 0.2 % Neutrophils # (Auto) 10.64 K/uL Lymphocytes # (Auto) 0.85 K/uL Monocytes # (Auto) 0.16 K/uL Eosinophils # (Auto) 0.00 K/uL Basophils # (Auto) 0.02 K/uL RDW Standard Deviation 46.1 fL RDW Coefficient of Variation 13.5 % Immature Granulocyte % (Auto) 0.3 % Immature Granulocyte # (Auto) 0.03 K/uL Sodium Level 138 mmol/L Potassium Level 4.6 mmol/L Chloride Level 104 mmol/L Carbon Dioxide Level 22 mmol/L Anion Gap 12.0 mmol/L Blood Urea Nitrogen 20 mg/dl Creatinine 1.30 mg/dl Est Creatinine Clear Calc Drug Dose 61.5 ml/min Estimated GFR () 63.6 Estimated GFR (Non- 54.9 BUN/Creatinine Ratio 15.0 Random Glucose 270 mg/dl Calcium Level 8.3 mg/dl Test 08/15/16 05:50 White Blood Count 14.63 K/uL Red Blood Count 3.72 M/uL Hemoglobin 11.9 g/dL Hematocrit 34.2 % Mean Corpuscular Volume 91.9 fL Mean Corpuscular Hemoglobin 32.0 pg Mean Corpuscular Hemoglobin Concent 34.8 g/dl RDW Standard Deviation 45.3 fL RDW Coefficient of Variation 13.6 % Platelet Count 216 K/uL Mean Platelet Volume 9.6 fL Sodium Level 139 mmol/L Potassium Level 4.2 mmol/L Chloride Level 105 mmol/L Carbon Dioxide Level 26 mmol/L Anion Gap 8.0 mmol/L Blood Urea Nitrogen 19 mg/dl Creatinine 1.00 mg/dl Est Creatinine Clear Calc Drug Dose 79.9 ml/min Estimated GFR () 87.4 Estimated GFR (Non- 75.4 BUN/Creatinine Ratio 19.0 Random Glucose 154 mg/dl Calcium Level 8.0 mg/dl Assessment and Plan 70 y/o male with a history of GERD and pre-diabetes who presents s/p right TKA with Dr. Reyes on 08/14 for medical management. -Pain management, DVT prophylaxis, and PT/OT as per primary team Elevated BP--no h/o HTN, is routinely seen by PCP -Cover with hydralazine 10 mg IV q6h prn SBP >160 GERD--pt manages this by avoiding spicy foods, no medications at home -Agree with pantoprazole 40 mg PO qd ordered by primary team Pre-diabetes--pt follows up with his PCP every 3 months to monitor his sugars. Last HgbA1c checked on was 6.1. Sugars have been elevated post op -Insulin sliding scale, goal range 140-180 -Check BSGs q ac and qhs Heavy drinking--Pt states that he goes some nights without any alcohol at all. He denies any h/o withdrawal symptoms. He states that he will be fine without anything. Code Status -Level I, FULL RESUSCITATION STATUS Dispo: -Discharge as per primary team Patient is stable for discharge from medical standpoint. Will sign-off at this time. Thank you for this consultation.
[2016-08-15 10:10] VITALS: BP 148/75; PULSE 82; O2SAT 98
[2016-08-15] MEDS: LACTATED RINGER'S 1000ML 1,000 ML IV SCH (11:22)
[2016-08-15 11:35] VITALS: BP 110/76; PULSE 68; TEMP 36.6; O2SAT 98
[2016-08-15 23:09] VITALS: BP 167/90; PULSE 61; TEMP 36.6; O2SAT 100
[2016-08-16 02:50] VITALS: BP 139/79
[2016-08-16] MEDS: SODIUM CHLORIDE 0.9% 1000ML 1,000 ML IV SCH (04:06)
[2016-08-16 07:12] VITALS: BP 166/93; PULSE 58; TEMP 36.4; O2SAT 97
[2016-08-16 07:37] LABS: HEMATOCRIT 32.1 % (42-52); MEAN CELL VOLUME 95.5 fL (80-100); MEAN CORPUSCULAR HEMOGLOBIN 31.5 pg (25-34); MEAN PLATELET VOLUME 10.3 fL (7.4-10.4); PLATELET COUNT 208 K/uL (130-400); RED BLOOD COUNT 3.36 M/uL (4.7-6.1); WHITE BLOOD COUNT 10.22 K/uL (4.8-10.8)
[2016-08-16] MEDS: INSULIN ASPART 100 UNITS/ML 3 ML PEN SC SCH (08:00)
[2016-08-16] MEDS: LACTATED RINGER'S 1000ML 1,000 ML IV SCH (08:00)
[2016-08-16 08:04] LABS: BUN/CREATININE RATIO 15.2 (10-20); CALCIUM 7.9 mg/dl (8.5-10.1); CREATININE 0.99 mg/dl (0.60-1.40)
[2016-08-16] MEDS: DOCUSATE SODIUM 100 MG CAP PO SCH (08:07)
[2016-08-16] MEDS: OXYCODONE HCL 10 MG TABCR (OXYCONTIN) PO SCH (08:07)
[2016-08-16] MEDS: PANTOprazole SOD 40 MG TAB PO SCH (08:08)
[2016-08-16] MEDS: MULTIVITAMIN TAB PO SCH (08:08)
[2016-08-16] MEDS: ASPIRIN 81 MG ECTAB PO SCH (08:55)
[2016-08-16] MEDS: ACETAMINOPHEN 500 MG TAB PO SCH (08:55)
[2016-08-16] MEDS: CeleBREX 200 MG CAP PO SCH (08:56)
--- NOTE | 2016-08-16 10:41 | Orthopedic Progress Note ---
Orthopedic Progress Note Date of Service Aug 16, 2016. Subjective Post OP Day: 2 Reports: feeling well, pain controlled w PO medications, Denies: SOB, calf pain , chest pain, complaints, light headedness, nausea / vomiting Objective calves soft nontender, N/V intact, capillary refill less than 2 sec., dressing C /D/I, A&O x3, toes mobile Date Time Temp Pulse Resp B/P Pulse Ox O2 Delivery O2 Flow Rate FiO2 08/16/16 08:00 Room Air 08/16/16 07:12 36.4 58 16 166/93 97 Room Air 08/16/16 02:50 18 139/79 08/15/16 23:40 Room Air 08/15/16 23:09 36.6 61 18 167/90 100 Room Air 08/15/16 11:35 36.6 68 16 110/76 98 Room Air 08/15/16 11:30 Room Air Laboratory Results 24 Hours: Test 08/16/16 06:40 Hematocrit 32.1 % Hemoglobin 10.6 g/dL Assessment & Plan Assessment: POD #2, Right TKA Plan: PT/ OT DVT proph- ASA D/C planning- Home w HH today. As per medicine. Inhouse Planning Pain Management: Celebrex, Oxycontin, Morphine, PO Tylenol, Oxy IR DVT Prophylaxis: TEDs, SCDs, ASA Discharge Planning Discharge Planning: home with home health Pain Management: Celebrex, Oxycontin, PO Tylenol, Oxy IR DVT Prophylaxis: TEDs, ASA Therapy: Physical Therapy, Occupational Therapy
[2016-08-16 10:42] VITALS: BP 166/93; PULSE 58; TEMP 36.4; O2SAT 97
--- NOTE | 2016-08-21 13:00 | EDITING REQUIRED CODING QUERY ---
SUPPORTING DIAGNOSIS NEEDED A supporting diagnosis is required for the test/procedure performed on this patient in order for us to be reimbursed by the patient's insurance. Please provide a supporting diagnosis for the following test/procedure listed below next to the test name along with your signature. *If there is no additional diagnosis for this patient that would support the following test/procedure please document that below next to the test/procedure. Test(s)/Procedure(s) that require a supporting diagnosis: * GLYCATED HEMOGLOBIN DIAGNOSIS:preop total joint r/o diabetes * DOS: 07/22/16 Provider Signature: Date: Thank you Rosalba Busch Health Information Management For questions please call [phone]
--- NOTE | 2016-08-30 16:07 | DISCHARGE SUMMARY ---
HISTORY OF PRESENT ILLNESS: This is a 70-year-old male patient of Dr. Reyes'dawson complaining of chronic right knee pain, long-standing, now progressively getting worse. The patient has failed conservative treatment and was diagnosed with end-stage osteoarthritis. The patient wishes to proceed with an elective right total knee arthroplasty. PAST MEDICAL HISTORY: Prediabetes, acid reflux, excessive alcohol use. Otherwise, the patient is a healthy 70-year-old male with no history of heart problems, lung problems, diabetes or cancer history. POSTOPERATIVE COURSE: The patient underwent an elective right total knee arthroplasty on 08/14/2016. He was followed closely with medical consultation, physical therapy, pain control and DVT prophylaxis in the form of aspirin. The patient did have some postoperative hypertension, medicine added hydralazine for systolic blood pressure greater than 160 until discharge. Otherwise, he had an uneventful postoperative course. PHYSICAL EXAMINATION: On discharge right knee Silverlon dressing was clean, dry and intact. There was no redness or drainage. He had no calf tenderness. Negative Homans sign. Neurologically and neurovascularly he is intact in his right lower extremity. DIAGNOSES: Right knee end-stage osteoarthritis, status post right total knee arthroplasty, prediabetic, excessive alcohol use, acid reflux, otherwise the patient is a healthy 70-year-old male with no history of heart problems, lung problems, diabetes or cancer history. PLAN: The patient was discharged home with home exercise program. The patient refused physical therapy or home health. He will continue aspirin twice daily for DVT prophylaxis. He will continue his preadmission medications and pain medications. He will follow up with his family physician concerning his hypertension, postoperative issues as well as his prediabetic state. We will see him in the office as scheduled as an outpatient.
== END 2016-08-16 11:40 | disposition home or self-care (01) | DRG 470 ==
LOC: ENRESERVTM → ENRESERVDT → C.ACU 09:49 → C.3E 14:31
PROVIDERS: ADMIT Orthopaedic Surgery Sports Medicine; ATTEND Orthopaedic Surgery Sports Medicine
PROC: 0SRC0J9 Replacement of Right Knee Joint with Synthetic Substitute, Cemented, Open Approach (ICD-10-PCS; principal; 2016-08-14 12:30)
DX: M17.11 Unilateral primary osteoarthritis, right knee (principal); R03.0 Elevated blood-pressure reading, without diagnosis of hypertension; R73.03 Prediabetes; K21.9 Gastro-esophageal reflux disease without esophagitis; Z87.891 Personal history of nicotine dependence; Z79.82 Long term (current) use of aspirin

== ENCOUNTER 2017-08-17 05:02 | Inpatient (IN) | payer OTHER ==
[2017-07-21 11:39] VITALS: BMI 33.0
--- NOTE | 2017-07-21 12:12 | PAT Medication Instructions ---
Service Date Jul 21, 2017. Current Home Medication List No Active Prescriptions or Reported Meds Medication Instructions For Your Scheduled Surgery No Active Prescriptions or Reported Meds- Please contact PAT department if starting any new medications prior to surgery. If you have any questions please call us at [phone] or [phone] or [phone]
--- NOTE | 2017-07-21 12:50 | DIAGNOSTIC IMAGING REPORT ---
CHEST 2 VIEWS ROUTINE CLINICAL HISTORY: 71 years-old Male presenting with preoperative assessment for left knee osteoporosis. TECHNIQUE: PA and lateral views of the chest were obtained. COMPARISON: None. FINDINGS: Atherosclerosis of the aortic arch. Cardiac silhouette normal in size. Lungs and pleural spaces clear. Degenerative changes of the thoracic spine. Possible old left rib fractures. Upper abdomen normal. IMPRESSION: 1. No acute cardiopulmonary disease. Electronically signed by: Bethel Rob M.D. 07/21/2017 12:49 PM Dictated Date/Time: 07/21/2017 12:48 PM
[2017-07-21 13:08] LABS: BASO % 0.3 %; BASO ABS # 0.02 K/uL (0-0.2); EOS % 1.3 %; EOS ABS # 0.08 K/uL (0-0.5); HEMATOCRIT 41.1 % (42-52); HEMOGLOBIN 13.9 g/dL (14.0-18.0); IG# 0.01 K/uL (0.00-0.02); LYMPH % 32.6 %; MEAN CELL VOLUME 94.7 fL (80-100); MEAN CORPUSCULAR HGB CONC 33.8 g/dl (32-36); MEAN PLATELET VOLUME 10.5 fL (7.4-10.4); MONO % 9.6 %; MONO ABS # 0.59 K/uL (0.11-0.59); NEUT ABS # 3.44 K/uL (1.4-6.5); PLATELET COUNT 219 K/uL (130-400); RED CELL DISTRIBUTION WIDTH CV 13.8 % (11.5-14.5); RED CELL DISTRIBUTION WIDTH SD 47.7 fL (36.4-46.3); WHITE BLOOD COUNT 6.14 K/uL (4.8-10.8)
[2017-07-21 13:19] LABS: PTT PATIENT 26.1 SECONDS (21.0-31.0)
[2017-07-21 13:32] LABS: HEMOGLOBIN A1C 6.3 % (4.5-5.6)
[2017-07-21 14:52] LABS: ALBUMIN 3.4 gm/dl (3.4-5.0); CALCIUM 8.8 mg/dl (8.5-10.1); CREATININE 0.94 mg/dl (0.60-1.40); POTASSIUM 4.1 mmol/L (3.5-5.1)
--- NOTE | 2017-08-16 14:40 | HISTORY & PHYSICAL EXAMINATION ---
DATE OF ADMISSION: 08/17/2017 ADMISSION HISTORY AND PHYSICAL CHIEF COMPLAINT: Chronic left knee pain. HISTORY OF PRESENT ILLNESS: This is a 71-year-old male patient of Dr. Reyes'dawson complaining of chronic left knee pain, longstanding, now progressively getting worse. The patient has failed conservative treatment including intraarticular injections, anti-inflammatories and home exercise program. The patient has increased pain with weightbearing activities and his pain does interfere with his activities of daily living. PAST MEDICAL HISTORY: Irregular heartbeat, rheumatoid arthritis. SOCIAL HISTORY: Nonsmoker, 8-drink per week drinker. PAST SURGICAL HISTORY: Eye surgery, knee surgery and right total knee replacement. FAMILY HISTORY: Noncontributory. REVIEW OF SYSTEMS: Chronic left knee pain; otherwise, denies any shortness of breath, chest pain, nausea, vomiting or any other joint complaints. MEDICATIONS: No routine medications. ALLERGIES: No known drug allergies. PHYSICAL EXAMINATION: GENERAL: Well-developed, well-nourished 71-year-old male in no acute distress. He is alert and oriented x3 and pleasant. HEENT: Normocephalic, atraumatic. Extraocular motions are intact. Pupils are equal and reactive to light. HEART: Regular rate and rhythm, no murmurs appreciated. LUNGS: Clear. ABDOMEN: Soft, nontender, bowel sounds present. EXTREMITIES: Left knee reveals joint line tenderness with a limited range of motion and mild effusion. He has crepitation with passive range of motion. He has 5/5 strength. NEUROLOGIC: Neurovascularly, he is intact in his left lower extremity. DIAGNOSES: Left knee end-stage osteoarthritis, irregular heartbeat, and rheumatoid arthritis. PLAN: The patient was advised of his diagnosis. Indications, risks, benefits, and postop course have all been reviewed. The patient wishes to proceed with a left total knee arthroplasty. Necessary consent forms, preoperative testing and clearances will be obtained. IMTIAZ
[~2017-08-17] VITALS: Ht 177.8 cm; Wt 105.4 kg
[2017-08-17] VITALS (10 sets, daily range): BP systolic 117–170; BP diastolic 68–78; PULSE 59–97; TEMP 36.3–36.7; O2SAT 94–97; Ht 177.8 cm; Wt 105.4 kg
[2017-08-17] MEDS ORDERED: ACETAMINOPHEN 500 MG TAB PO SCH (06:00)
[2017-08-17] MEDS ORDERED: ROPIVACAINE 5MG/ML 30 ML 150 MG, BUPIVACAINE 0.5% MPF INJ 30 ML, EpINEphrine HCL INJ 0.... INFIL SCH ×8 (06:00)
[2017-08-17] MEDS ORDERED: GABAPENTIN 300 MG CAP PO SCH (06:00)
[2017-08-17] MEDS ORDERED: LACTATED RINGER'S 1000ML IV SCH (06:00)
[2017-08-17] MEDS ORDERED: FAMOTIDINE 20 MG TAB PO SCH (06:00)
[2017-08-17] MEDS ORDERED: METOCLOPRAMIDE HCL 10 MG TAB PO SCH (06:00)
[2017-08-17] MEDS ORDERED: CeleBREX 200 MG CAP PO SCH (06:00)
[2017-08-17] MEDS ORDERED: DEXAMETHASONE 4 MG TAB PO SCH (06:00)
[2017-08-17] MEDS ORDERED: LACTATED RINGER'S 1000ML 500 ML IV SCH (06:00)
[2017-08-17] MEDS ORDERED: LACTATED RINGER'S 1000ML 1,000 ML IV SCH (06:00)
[2017-08-17] MEDS ORDERED: CEFAZOLIN 2000MG IV PUSH 10 ML IV SCH (06:00)
[2017-08-17] MEDS ORDERED: BUPIVACAINE 0.5 % 5 MG/1 ML PF 10ML VIAL ONE (06:22)
[2017-08-17] MEDS ORDERED: ROPIVACAINE 0.5% 5 MG/ML 30 ML VIAL ONE (06:22)
[2017-08-17] MEDS: TRANEXAMIC ACID INJ 1,000 MG in SYRINGE 0 ML IV SCH ×2 (06:33→10:21)
[2017-08-17] MEDS ORDERED: FENTANYL CITRATE INJ 50 MCG/1 ML 2 ML VIAL ONE (06:40)
[2017-08-17] MEDS ORDERED: MIDAZOLAM HCL 1 MG/ML 2ML VIAL ONE ×2 (06:40→07:25)
[2017-08-17] MEDS ORDERED: POVIDONE-IODINE OP SOLN 30 ML BTL ONE (06:45)
[2017-08-17] MEDS ORDERED: ORTHO JOINT ANESTHETIC ONE (06:45)
[2017-08-17] MEDS ORDERED: BACITRACIN 50000 UNIT VIAL ONE (06:45)
[2017-08-17] MEDS ORDERED: KETAMINE HCL INJ 50 MG/ML 10 ML VIAL ONE (07:49)
[2017-08-17] MEDS ORDERED: EpHEDrine SULFATE INJ 50 MG/ML AMP IV PRN (08:00)
[2017-08-17] MEDS ORDERED: HYDROmorphone INJ 2 MG/ML SYR/VIAL IV PRN (08:00)
[2017-08-17] MEDS ORDERED: PHENYLEPHRINE 100MCG/ML 5ML SYR IV PRN (08:00)
[2017-08-17] MEDS ORDERED: ATROPINE SULFATE 0.1 MG/ML 5ML SYR IV PRN (08:00)
[2017-08-17] MEDS ORDERED: ONDANSETRON INJ 2 MG/ML 2 ML VIAL IV PRN ×2 (08:00→09:30)
[2017-08-17] MEDS ORDERED: PHENYLEPHRINE 100MCG/ML 5ML SYR ONE (08:14)
[2017-08-17] MEDS ORDERED: PROPOFOL IV EMULSION 10 MG/ML 20 ML VIAL IV ONE (08:14)
[2017-08-17] MEDS ORDERED: EpHEDrine SULFATE 50MG/5ML SYR ONE (08:14)
--- NOTE | 2017-08-17 08:54 | [facility] Post Operative Brief Note ---
Immediate Operative Summary Operative Date Aug 17, 2017. Pre-Operative Diagnosis Left Knee End-Stage Osteoarthritis Post-Operative Diagnosis Left Knee End-Stage Osteoarthritis Procedure(s) Performed Left Total Knee Arthroplasty Surgeon Dr Reyes Adult Neurologist Surgeon(s) Tristen Kim PA-C Estimated Blood Loss 5cc Findings grade 4 medial varus Specimens As Per Surgeon A. Left Knee Bone and Tissue Drains 2 hemovac Anesthesia spinal Complication(s) None Disposition Recovery Room / PACU
[2017-08-17] MEDS ORDERED: HYDROCODONE/ACETAMOPHEN 5/325MG TAB PO PRN (09:30)
[2017-08-17] MEDS ORDERED: MoRPHine SULFATE 2 MG/ML CARP IV PRN (09:30)
[2017-08-17] MEDS ORDERED: ZOLPIDEM TARTRATE 5 MG TAB PO PRN (09:30)
[2017-08-17] MEDS ORDERED: MAGNESIUM HYDROXIDE SUSP 30 ML UDC PO PRN (09:30)
[2017-08-17] MEDS ORDERED: TRAMADOL HCL 50 MG TAB PO PRN (09:30)
[2017-08-17] MEDS ORDERED: ACETAMINOPHEN 325 MG TAB PO PRN (09:30)
[2017-08-17] MEDS ORDERED: BISACODYL 10 MG SUPP PR PRN (09:30)
[2017-08-17] MEDS ORDERED: METOCLOPRAMIDE HCL INJ 5 MG/ML 2 ML VIAL IV PRN (09:30)
[2017-08-17] MEDS ORDERED: SOD PHOSPHATE/SOD BIPHOSPHATE ENEMA 132 ML BTL PR PRN (09:30)
--- NOTE | 2017-08-17 10:09 | DIAGNOSTIC IMAGING REPORT ---
L KNEE 1 OR 2 VIEWS ROUTINE HISTORY: 71 years-old Male AP/LATERAL IN PACU LEFT KNEE status post left knee total joint arthroplasty. Degenerative joint disease. COMPARISON: None available TECHNIQUE: 2 views of the left knee FINDINGS: Status post left knee total joint arthroplasty and patella resurfacing. No evidence of periprosthetic fracture or malalignment. Expected postsurgical soft tissue swelling and deep tissue air with surgical drain in place. Anterior midline skin danita. Peripheral vascular disease. IMPRESSION: Status post left knee total joint arthroplasty and patellar resurfacing without complication. The above report was generated using voice recognition software. It may contain grammatical, syntax or spelling errors. Electronically signed by: Ozzy Nguyen M.D. 08/17/2017 10:08 AM Dictated Date/Time: 08/17/2017 10:02 AM
--- NOTE | 2017-08-17 10:22 | Anesthesiology Progress Note ---
Anesthesia Post Op Note Date & Time Aug 17, 2017 at 10:22 Vital Signs Pain Intensity: 0 Vital Signs Past 12 Hours Date Time Temp Pulse Resp B/P (MAP) Pulse Ox O2 Delivery O2 Flow Rate FiO2 08/17/17 10:15 79 20 109/69 94 Nasal Cannula 4 08/17/17 10:05 80 19 116/62 95 Nasal Cannula 4 08/17/17 09:55 36.2 70 15 120/61 95 Nasal Cannula 4 08/17/17 09:45 83 21 108/48 94 Nasal Cannula 4 08/17/17 09:35 79 21 101/59 92 Nasal Cannula 4 08/17/17 09:25 79 24 94/53 94 Nasal Cannula 4 08/17/17 09:17 36.6 87 21 89/55 95 Nasal Cannula 4 08/17/17 05:55 36.7 73 20 170/75 95 Room Air Notes Mental Status: alert / awake / arousable, participated in evaluation Pt Amnestic to Procedure: Yes Nausea / Vomiting: adequately controlled Pain: adequately controlled Airway Patency, RR, SpO2: stable & adequate BP & HR: stable & adequate Hydration State: stable & adequate Anesthetic Complications: no major complications apparent
[2017-08-17] MEDS ORDERED: D5W AND 1/2NSS + 20MEQ KCL 1,000 ML IV SCH (10:50)
[2017-08-17] MEDS ORDERED: GLUCOSE 40% GEL 15 GM TUBE PO PRN (12:15)
[2017-08-17] MEDS ORDERED: DEXTROSE 50% 50 ML SYR IV PRN (12:15)
[2017-08-17] MEDS ORDERED: GLUCAGON FOR INJ 1 MG VIAL SQ PRN (12:15)
[2017-08-17] MEDS ORDERED: GLUCOSE 10 TABS/TUBE PO PRN (12:15)
--- NOTE | 2017-08-17 12:24 | Medical Consult ---
Consultation Date of Consultation: Aug 17, 2017. Attending Physician: Osmel Reyes M.D. Reason for Consultation: Medical management History of Present Illness This is a 71 y/o male with a history of osteoarthritis and prediabetes who presents s/p left TKA with Dr. Reyes on 08/17 for medical management. The patient reports feeling well. He denies any pain in his left knee. He does report residual numbness/tingling from anesthesia, but states that the feeling is starting to come back. He has not yet eaten, urinated, passed gas or had a bowel movement postoperatively. The patient denies fevers, chills, sweats, chest pain, palpitations, claudication, cough, wheezing, shortness of breath, nausea, vomiting, abdominal pain, dysuria, hematuria, urinary retention, paralysis, weakness. Past Medical/Surgical History Osteoarthritis s/p R TKA 2016 and L TKA 08/17/17 Prediabetes Family History Cancer (unknown type) FATHER Uncle Myocardial infarction MOTHER Social History Smoking Status: Former Smoker (quit 2016) Smokeless Tobacco Use: No Alcohol Use: heavy (3-4 beers per day) Drug Use: none Marital Status: , in relationship Housing Status: lives alone Occupation Status: employed Allergies Coded Allergies: Oxycodone (Verified Adverse Reaction, Intermediate, ELEVATED BP, 08/17/17) Current Inpatient Medications Current Inpatient Medications Medications (Trade) Dose Ordered Sig/Vivienne Route Start Time Stop Time Status Last Admin Dose Admin Lactated Ringer's 1,000 ml @ 15 mls/hr Q24H IV 08/17/17 06:00 08/18/17 05:59 Lactated Ringer's 1,000 ml @ 60 mls/hr [id number] IV 08/17/17 06:00 08/17/17 22:39 Cefazolin Sodium 10 ml @ 2.5 mls/min PREOP IV 08/17/17 06:00 08/17/17 18:00 08/17/17 07:16 2.5 MLS/MIN Acetaminophen (Tylenol Tab) 1,000 mg PREOP PO 08/17/17 06:00 08/17/17 18:00 08/17/17 05:52 1,000 MG Celecoxib (CeleBREX CAP) 200 mg PREOP PO 08/17/17 06:00 08/17/17 18:00 08/17/17 05:53 200 MG Dexamethasone (Decadron Tab) 8 mg PREOP PO 08/17/17 06:00 08/17/17 18:00 08/17/17 05:52 8 MG Famotidine (Pepcid Tab) 20 mg PREOP PO 08/17/17 06:00 08/17/17 18:00 08/17/17 05:53 20 MG Gabapentin (Neurontin Cap) 300 mg PREOP PO 08/17/17 06:00 08/17/17 18:00 08/17/17 05:53 300 MG Metoclopramide HCl (Reglan Tab) 10 mg PREOP PO 08/17/17 06:00 08/17/17 18:00 08/17/17 05:53 10 MG Hydromorphone HCl (Dilaudid Inj) 0.5 mg Q5M PRN IV 08/17/17 08:00 08/17/17 13:00 Ondansetron HCl (Zofran Inj) 4 mg ONE PRN IV 08/17/17 08:00 08/17/17 13:00 Ephedrine Sulfate (EpHEDrine SULFATE INJ) 5 mg Q5M PRN IV 08/17/17 08:00 08/17/17 13:00 Atropine Sulfate (Atropine Sulfate 0.1mg/ml Inj) 0.5 mg Q1M PRN IV 08/17/17 08:00 08/17/17 13:00 Phenylephrine HCl (Aleksey-Synephrine 500MCG/5ML Syr) 100 mcg Q5M PRN IV 08/17/17 08:00 08/17/17 13:00 Potassium Chloride/Dextrose/ Sod Cl 1,000 ml @ 100 mls/hr Q10H IV 08/17/17 10:50 08/18/17 10:49 08/17/17 11:37 100 MLS/HR Cefazolin Sodium 2000 mg/Syringe 10 ml @ 2.5 mls/min Q8H IV 08/17/17 16:00 08/18/17 00:03 Celecoxib (CeleBREX CAP) 200 mg BID PO 08/17/17 21:00 09/16/17 20:59 Acetaminophen/ Hydrocodone Bitart ([place] 5/325 Tab) 1 TABLET FOR PAIN RATING... Q4H PRN PO 08/17/17 09:30 08/31/17 09:29 Morphine Sulfate (MoRPHine SULFATE INJ) FOR PAIN, 2-4MG 2MG FOR P... Q4H PRN IV 08/17/17 09:30 08/31/17 09:29 Acetaminophen (Tylenol Tab) 650 mg Q6H PRN PO 08/17/17 09:30 09/16/17 09:29 Magnesium Hydroxide (Milk Of Magnesia Susp) 30 ml Q6H PRN PO 08/17/17 09:30 09/16/17 09:29 Bisacodyl (Dulcolax Supp) 10 mg DAILY PRN [place] 08/17/17 09:30 09/16/17 09:29 Sodium Biphosphate/ Sodium Phosphate (Fleet Enema) 132 ml DAILY PRN [place] 08/17/17 09:30 09/16/17 09:29 Docusate Sodium (coLACE CAP) 100 mg BID PO 08/17/17 21:00 09/16/17 20:59 Diphenhydramine HCl (Benadryl Cap) 25 mg Q8H PRN PO 08/17/17 09:30 09/16/17 09:29 Zolpidem Tartrate (Ambien Tab) 5 mg HSZ PRN PO 08/17/17 09:30 09/16/17 09:29 Multivitamins (Multivitamin Tab) 1 tab QAM PO 08/18/17 09:00 09/17/17 08:59 Ondansetron HCl (Zofran Inj) 4 mg Q6H PRN IV 08/17/17 09:30 09/16/17 09:29 Metoclopramide HCl (Reglan Inj) 10 mg Q6H PRN IV 08/17/17 09:30 09/16/17 09:29 Pantoprazole Sodium (Protonix Tab) 40 mg QAM PO 08/18/17 09:00 08/22/17 08:59 Tramadol HCl (Ultram Tab) 1 tablet for pain rating... Q4H PRN PO 08/17/17 09:30 09/16/17 09:29 Aspirin (Ecotrin Tab) 81 mg BID PO 08/17/17 21:00 09/16/17 20:59 Review of Systems See HPI for pertinent positives and negatives. All other systems reviewed and negative. Physical Exam Date Time Temp Pulse Resp B/P (MAP) Pulse Ox O2 Delivery O2 Flow Rate FiO2 08/17/17 11:29 95 Nasal Cannula 2.0 08/17/17 11:23 36.5 71 18 117/72 (87) 95 Nasal Cannula 2.0 08/17/17 11:22 36.4 59 19 124/75 (91) 95 Nasal Cannula 3.0 08/17/17 11:21 95 Nasal Cannula 2.0 08/17/17 11:02 36.4 66 18 124/78 (93) 94 Nasal Cannula 2.0 08/17/17 10:15 79 20 109/69 94 Nasal Cannula 4 08/17/17 10:05 80 19 116/62 95 Nasal Cannula 4 08/17/17 09:55 36.2 70 15 120/61 95 Nasal Cannula 4 08/17/17 09:45 83 21 108/48 94 Nasal Cannula 4 08/17/17 09:35 79 21 101/59 92 Nasal Cannula 4 08/17/17 09:25 79 24 94/53 94 Nasal Cannula 4 08/17/17 09:17 36.6 87 21 89/55 95 Nasal Cannula 4 08/17/17 05:55 36.7 73 20 170/75 95 Room Air General appearance: +Obese. Well-developed, well-nourished, no apparent distress Head: Normocephalic, atraumatic Eyes: Normal inspection, PERRL, EOMI ENT: Normal ENT inspection, hearing grossly normal, pharynx normal Neck: Supple, no JVD, trachea midline Respiratory/Chest: Lungs clear to auscultation, normal breath sounds, no respiratory distress Cardiovascular: Regular rate & rhythm, no gallop, no murmur Abdomen/GI: Normal bowel sounds, non-tender, soft Extremities/Musculoskeletal: +LLE wrapped in rashmi bandage. Drain in place. Decreased sensation LLE compared to RLE. No calf tenderness, no pedal edema Neurological/Psych: Alert, normal mood/affect, oriented x 3 Skin: Normal color, warm/dry, no rash Laboratory Results Last 24 Hours Test 08/17/17 05:19 08/17/17 09:26 Bedside Glucose 127 mg/dl 162 mg/dl Assessment & Plan 71 y/o male with a history of osteoarthritis and prediabetes who presents s/p left TKA with Dr. Reyes on 08/17 for medical management. S/p L TKA--POD #0 -Pain management, DVT prophylaxis, and PT/OT as per primary team -AVSS, no pain Prediabetes--HgbA1c 6.3 on 07/21/17 -BSG up to 162 this am -Insulin sliding scale -Check BSGs q ac and qhs -Change to diabetic diet Alcohol use--reports 3-4 beers per day. Denies any withdrawal sx currently -Alcohol withdrawal protocol, Ativan 1 mg PO prn Code Status -Level I, FULL RESUSCITATION STATUS Thank you for this consultation. We will continue to follow. Attending Attestation & Consult note: Pt seen/examined, chart reviewed, care plan d/w ELÍAS Staples. I agree w/ the kasper components of her consult note. Pt w/o c/o cp, dyspnea, abd pain during my visit early this evening. Feels good. Mild pain in left knee. VSS no fever gen - NAD neck - no JVD heart - RRR, s1, s2; tones are distant lungs - CTA b/l abd - soft, NT ext - trace edema left ankle, none on right; left knee wrapped in RASHMI with drain in place A/P: 1. s/p left TKR 2. pre-DM, now w/ hyperglycemia - due to perioperative decadron, stress of surgery, and dextrose-containing fluids. Dextrose has been removed. Anticipate BSGs will improve by tomorrow. Novolog for meals/HS in meantime. 3. alcohol dependence - no signs/symptoms of etoh withdrawal at this time; follow carefully for such. Low threshold to institute gabapentin protocol if needed. ativan prn. Susana BRICE MD
[2017-08-17] MEDS ORDERED: LORAZEPAM 1 MG TAB PO PRN (12:30)
[2017-08-17 12:41] LABS: HEMATOCRIT 40.5 % (42-52); HEMOGLOBIN 13.9 g/dL (14.0-18.0); MEAN CELL VOLUME 94.2 fL (80-100); MEAN CORPUSCULAR HEMOGLOBIN 32.3 pg (25-34); MEAN CORPUSCULAR HGB CONC 34.3 g/dl (32-36); MEAN PLATELET VOLUME 9.8 fL (7.4-10.4); PLATELET COUNT 246 K/uL (130-400); RED CELL DISTRIBUTION WIDTH CV 13.8 % (11.5-14.5); RED CELL DISTRIBUTION WIDTH SD 47.5 fL (36.4-46.3); WHITE BLOOD COUNT 8.65 K/uL (4.8-10.8)
[2017-08-17 13:20] LABS: CALCIUM 8.5 mg/dl (8.5-10.1); CREATININE 1.09 mg/dl (0.60-1.40); POTASSIUM 4.4 mmol/L (3.5-5.1)
[2017-08-17] MEDS: CEFAZOLIN IV 2,000 MG in SYRINGE 0 ML IV SCH (16:16)
[2017-08-17] MEDS ORDERED: NURSING VERBAL MED ORDER ONE (17:00)
[2017-08-17] MEDS: SODIUM CHLORIDE 0.9% 1000ML 1,000 ML IV SCH (17:55)
[2017-08-17] MEDS: INSULIN ASPART 100 UNITS/ML 3 ML PEN SC SCH ×2 (17:57→20:45)
--- NOTE | 2017-08-17 18:46 | OPERATIVE REPORT ---
DATE OF OPERATION: 08/17/2017 INDICATION FOR PROCEDURE: This is a 71-year-old male with chronic left knee pain. He has end-stage osteoarthritis medial compartment with varus knee, bone on bone medial compartment. He had successful right knee replacement in the past. He now presents for left knee replacement. PREOPERATIVE DIAGNOSIS: End-stage osteoarthritis, left knee. POSTOPERATIVE DIAGNOSIS: Same. PROCEDURE: Left total knee arthroplasty. SURGEON: Osmel Reyes MD. PATIENT ACCOUNTS COORDINATOR: ELÍAS Carmona. ANESTHESIA: Spinal adductor nerve block, Orthomix and sedation. OPERATIVE PROCEDURE: The patient was taken to the operating room and anesthetized under anesthesia as dictated. Pneumatic tourniquet was placed on the left upper thigh. Left lower extremity was examined under anesthesia. He had slight flexion contracture of maybe 10 degrees, so had good flexion of his knee and had a varus knee. No pseudolaxity. No particular instability. His left lower extremity was sterilely prepped and draped with ChloraPrep. The leg was elevated, exsanguinated with Esmarch bandage. Pneumatic tourniquet was raised to 325 mmHg. Anterior incision was made longitudinally across the left knee. Skin was incised sharply. Subcutaneous flaps were elevated. There was little bit of thickened prepatellar bursitis. Incision was made through medial retinaculum and extended up in the mid third of the quadriceps tendon and extended down to the medial tibial tubercle. Intraarticular findings demonstrated he had grade 4 DJD, [id number] in the medial compartment. He had some tricompartmental osteophytes. I used the [employer] 2.0, total knee arthroplasty system using Visionaire MRI templating. Templated for 7 femur and 6 tibia. The knee was exposed by excising the infrapatellar fat pad, excising the cruciate ligaments and excising the menisci and the fat pad over the anterior femur at the superior articular surface to place the component in that area. Lateral synovial bands were released. The femur was exposed. The custom femoral cutting block was pinned in position. The distal femoral cut was made. The 5-1 cutting block was made to a size 7 femur. The anterior, posterior and chamfer cuts were made. All osteophytes removed. The knee was then extended and a subperiosteal peel lateral release was performed around the patella. The patella width was measured and width was reproduced using freehand cut technique and a 38 mm patellar component. The drill holes were made. The excess lateral facet was beveled off. The tibia was then exposed. The custom tibial cutting block was pinned in position and a proximal tibial cut was made. We had to do releases around the proximal medial tibial plateau and posteromedially. We also had the pie crust MCL to give balanced flexion and extension gaps. The 6 tibial trial was placed in position and pinned in position, and punch for the stem was used. The 7 femoral trial was centered and inserted and notch cutting device was used. A collet was placed. A size 13 poly high flex insert gave balanced ligaments through full range of motion and patella tracked centrally. Trials were removed. The Orthomix anesthetic cocktail was injected per protocol. The knee was copiously irrigated with pulsatile lavage antibiotic solution with bacitracin. Then, the bony surfaces were dried and final components were cemented. The final components were the [employer] Journey 2.0 size 7 Oxinium femur, 6 tibial baseplate, 13 mm high flex poly insert and 38 mm dome patella. We used Simplex G cement. While the cement was curing, we used Betadine soak per protocol. After the cement had cured, the Betadine was washed with antibiotic solution of bacitracin. Two drains were brought out laterally. The quadriceps tendon and medial retinaculum were closed with [id number] #1 Vicryl sutures. The knee was taken through full range of motion and repair was secured. The subcutaneous tissues were then closed with interrupted 2-0 Vicryl sutures, skin was closed with danita and a Silverlon dressing was placed. The patient had minimal blood loss and tolerated the procedure well. ELÍAS Carmona was my insurance legal assistant and functioned as insurance legal assistant for the entire procedure. He assisted in patient positioning, prepping, draping, leg positioning, instrument management and soft tissue retraction and performed the fascial, subcutaneous and skin closure and will participate in postoperative care of the patient. I attest to the content of the Intraoperative Record and any orders documented therein. Any exception s are noted below.
[2017-08-17] MEDS: DOCUSATE SODIUM 100 MG CAP PO SCH (20:44)
[2017-08-17] MEDS: ASPIRIN 81 MG ECTAB PO SCH (20:44)
[2017-08-17] MEDS: CeleBREX 200 MG CAP PO SCH (20:45)
[2017-08-18] VITALS (8 sets, daily range): BP systolic 101–160; BP diastolic 59–76; PULSE 60–83; TEMP 36.4–36.6; O2SAT 92–98
[2017-08-18] MEDS: CEFAZOLIN IV 2,000 MG in SYRINGE 0 ML IV SCH (00:18)
[2017-08-18] MEDS: SODIUM CHLORIDE 0.9% 1000ML 1,000 ML IV SCH ×2 (03:39→14:21)
[2017-08-18 06:49] LABS: HEMATOCRIT 33.1 % (42-52); HEMOGLOBIN 11.4 g/dL (14.0-18.0); MEAN CELL VOLUME 93.2 fL (80-100); MEAN CORPUSCULAR HEMOGLOBIN 32.1 pg (25-34); MEAN CORPUSCULAR HGB CONC 34.4 g/dl (32-36); MEAN PLATELET VOLUME 9.4 fL (7.4-10.4); PLATELET COUNT 237 K/uL (130-400); RED CELL DISTRIBUTION WIDTH CV 13.4 % (11.5-14.5); RED CELL DISTRIBUTION WIDTH SD 45.9 fL (36.4-46.3); WHITE BLOOD COUNT 18.82 K/uL (4.8-10.8)
[2017-08-18 07:11] LABS: CALCIUM 8.2 mg/dl (8.5-10.1); CREATININE 0.94 mg/dl (0.60-1.40); POTASSIUM 4.4 mmol/L (3.5-5.1)
--- NOTE | 2017-08-18 08:08 | Orthopedic Progress Note ---
Orthopedic Progress Note Date of Service Aug 18, 2017. Subjective Post OP Day: 1 Reports: feeling well, Denies: chest pain, SOB, nausea / vomiting, light headedness, calf pain Objective calves soft nontender, N/V intact, capillary refill less than 2 sec., dressing C /D/I, A&O x3, toes mobile, hemovac drainage (375/300 cc per shift) Date Time Temp Pulse Resp B/P (MAP) Pulse Ox O2 Delivery O2 Flow Rate FiO2 08/18/17 07:06 36.4 66 16 131/76 (94) 93 Room Air 08/18/17 03:36 36.4 74 17 134/63 (86) 94 Room Air 08/18/17 00:20 95 Room Air 08/17/17 23:34 36.6 71 16 128/78 (95) 95 Room Air 08/17/17 19:00 36.6 73 18 132/75 (94) 94 Room Air 08/17/17 16:10 Room Air 08/17/17 15:00 36.5 84 18 127/72 (90) 97 Room Air 08/17/17 13:40 36.6 97 19 133/73 (93) 96 Nasal Cannula 2.0 08/17/17 12:30 36.3 85 17 134/68 (90) 96 Nasal Cannula 2.0 08/17/17 11:29 95 Nasal Cannula 2.0 08/17/17 11:23 36.5 71 18 117/72 (87) 95 Nasal Cannula 2.0 08/17/17 11:22 36.4 59 19 124/75 (91) 95 Nasal Cannula 3.0 08/17/17 11:21 95 Nasal Cannula 2.0 08/17/17 11:02 36.4 66 18 124/78 (93) 94 Nasal Cannula 2.0 08/17/17 10:15 79 20 109/69 94 Nasal Cannula 4 08/17/17 10:05 80 19 116/62 95 Nasal Cannula 4 08/17/17 09:55 36.2 70 15 120/61 95 Nasal Cannula 4 08/17/17 09:45 83 21 108/48 94 Nasal Cannula 4 08/17/17 09:35 79 21 101/59 92 Nasal Cannula 4 08/17/17 09:25 79 24 94/53 94 Nasal Cannula 4 08/17/17 09:17 36.6 87 21 89/55 95 Nasal Cannula 4 Laboratory Results 24 Hours: Test 08/17/17 12:22 08/18/17 06:27 Hematocrit 40.5 % 33.1 % Hemoglobin 13.9 g/dL 11.4 g/dL Assessment & Plan Assessment: POD#1 sp left TKA Plan: PT/OT DVT proph- ASA 871mg big Pain management- Celebrex, [place] DC planning- patient wants to do his own PT at home. Likely DC in am.
[2017-08-18] MEDS: MULTIVITAMIN TAB PO SCH (08:44)
[2017-08-18] MEDS: DOCUSATE SODIUM 100 MG CAP PO SCH ×2 (08:44→21:27)
[2017-08-18] MEDS: CeleBREX 200 MG CAP PO SCH ×2 (08:44→21:27)
[2017-08-18] MEDS: ASPIRIN 81 MG ECTAB PO SCH ×2 (08:44→21:27)
[2017-08-18] MEDS: PANTOprazole SOD 40 MG TAB PO SCH (08:44)
[2017-08-18] MEDS: INSULIN ASPART 100 UNITS/ML 3 ML PEN SC SCH ×4 (08:47→21:00)
--- NOTE | 2017-08-18 10:26 | Progress Note ---
Subjective Date of Service: Aug 18, 2017. Subjective Pt evaluation today including: conversation w/ patient, physical exam No complaints. Review of Systems Constitutional: No fever, No chills Eyes: No worsening of vision Respiratory: No cough, No sputum Cardiac: No chest pain Abdomen: No pain, No nausea Neurologic: No memory loss, No paralysis Psychiatric: No depression symptoms Heme: No abnormal bleeding/bruising Endo: No fatigue Skin: No rash All Other Systems: Reviewed and Negative Medications Current Inpatient Medications Medications (Trade) Dose Ordered Sig/Vivienne Route Start Time Stop Time Status Last Admin Dose Admin Celecoxib (CeleBREX CAP) 200 mg BID PO 08/17/17 21:00 09/16/17 20:59 08/19/17 07:21 200 MG Acetaminophen/ Hydrocodone Bitart ([place] 5/325 Tab) 1 TABLET FOR PAIN RATING... Q4H PRN PO 08/17/17 09:30 08/31/17 09:29 08/18/17 08:10 2 TAB Morphine Sulfate (MoRPHine SULFATE INJ) FOR PAIN, 2-4MG 2MG FOR P... Q4H PRN IV 08/17/17 09:30 08/31/17 09:29 Acetaminophen (Tylenol Tab) 650 mg Q6H PRN PO 08/17/17 09:30 09/16/17 09:29 Magnesium Hydroxide (Milk Of Magnesia Susp) 30 ml Q6H PRN PO 08/17/17 09:30 09/16/17 09:29 Bisacodyl (Dulcolax Supp) 10 mg DAILY PRN [place] 08/17/17 09:30 09/16/17 09:29 Sodium Biphosphate/ Sodium Phosphate (Fleet Enema) 132 ml DAILY PRN [place] 08/17/17 09:30 09/16/17 09:29 Docusate Sodium (coLACE CAP) 100 mg BID PO 08/17/17 21:00 09/16/17 20:59 08/19/17 07:21 100 MG Diphenhydramine HCl (Benadryl Cap) 25 mg Q8H PRN PO 08/17/17 09:30 09/16/17 09:29 Zolpidem Tartrate (Ambien Tab) 5 mg HSZ PRN PO 08/17/17 09:30 09/16/17 09:29 Multivitamins (Multivitamin Tab) 1 tab QAM PO 08/18/17 09:00 09/17/17 08:59 08/19/17 07:22 1 TAB Ondansetron HCl (Zofran Inj) 4 mg Q6H PRN IV 08/17/17 09:30 09/16/17 09:29 Metoclopramide HCl (Reglan Inj) 10 mg Q6H PRN IV 08/17/17 09:30 09/16/17 09:29 Pantoprazole Sodium (Protonix Tab) 40 mg QAM PO 08/18/17 09:00 08/22/17 08:59 08/19/17 07:22 40 MG Tramadol HCl (Ultram Tab) 1 tablet for pain rating... Q4H PRN PO 08/17/17 09:30 09/16/17 09:29 Aspirin (Ecotrin Tab) 81 mg BID PO 08/17/17 21:00 09/16/17 20:59 08/19/17 07:21 81 MG Insulin Aspart (novoLOG ASPART) SLIDING SCALE If C... ACHS SC 08/17/17 17:15 09/16/17 17:14 08/18/17 08:47 3 UNITS Glucose (Glucose 40% Gel) 15-30 GRAMS 15 GRAMS... UD PRN PO 08/17/17 12:15 09/16/17 12:14 Glucose (Glucose Chew Tab) 4-8 Tablets 4 Tabl... UD PRN PO 08/17/17 12:15 09/16/17 12:14 Dextrose (Dextrose 50% 50ML Syringe) 25-50ML OF 50% DW IV FOR... UD PRN IV 08/17/17 12:15 09/16/17 12:14 Glucagon (Glucagon Inj) 1 mg UD PRN SQ 08/17/17 12:15 09/16/17 12:14 Lorazepam (Ativan Tab) 1 mg ONE PRN PO 08/17/17 12:30 Objective Vital Signs Date Time Temp Pulse Resp B/P (MAP) Pulse Ox O2 Delivery O2 Flow Rate FiO2 08/18/17 08:15 Room Air 08/18/17 07:06 36.4 66 16 131/76 (94) 93 Room Air 08/18/17 03:36 36.4 74 17 134/63 (86) 94 Room Air 08/18/17 00:20 95 Room Air 08/17/17 23:34 36.6 71 16 128/78 (95) 95 Room Air 08/17/17 19:00 36.6 73 18 132/75 (94) 94 Room Air 08/17/17 16:10 Room Air 08/17/17 15:00 36.5 84 18 127/72 (90) 97 Room Air 08/17/17 13:40 36.6 97 19 133/73 (93) 96 Nasal Cannula 2.0 08/17/17 12:30 36.3 85 17 134/68 (90) 96 Nasal Cannula 2.0 08/17/17 11:29 95 Nasal Cannula 2.0 08/17/17 11:23 36.5 71 18 117/72 (87) 95 Nasal Cannula 2.0 08/17/17 11:22 36.4 59 19 124/75 (91) 95 Nasal Cannula 3.0 08/17/17 11:21 95 Nasal Cannula 2.0 08/17/17 11:02 36.4 66 18 124/78 (93) 94 Nasal Cannula 2.0 Physical Exam Comments: General appearance: +Obese. Well-developed, well-nourished, no apparent distress Head: Normocephalic, atraumatic Eyes: Normal inspection, PERRL, EOMI ENT: Normal ENT inspection, hearing grossly normal, pharynx normal Neck: Supple, no JVD, trachea midline Respiratory/Chest: Lungs clear to auscultation, normal breath sounds, no respiratory distress Cardiovascular: Regular rate & rhythm, no gallop, no murmur Abdomen/GI: Normal bowel sounds, non-tender, soft Extremities/Musculoskeletal: +LLE wrapped in tonya bandage. Drain in place. Decreased sensation LLE compared to RLE. No calf tenderness, no pedal edema Neurological/Psych: Alert, normal mood/affect, oriented x 3 Skin: Normal color, warm/dry, no rash Laboratory Results Last 24 Hours Test 08/17/17 12:22 08/17/17 12:35 08/17/17 17:00 08/17/17 20:08 White Blood Count 8.65 K/uL Red Blood Count 4.30 M/uL Hemoglobin 13.9 g/dL Hematocrit 40.5 % Mean Corpuscular Volume 94.2 fL Mean Corpuscular Hemoglobin 32.3 pg Mean Corpuscular Hemoglobin Concent 34.3 g/dl RDW Standard Deviation 47.5 fL RDW Coefficient of Variation 13.8 % Platelet Count 246 K/uL Mean Platelet Volume 9.8 fL Sodium Level 133 mmol/L Potassium Level 4.4 mmol/L Chloride Level 100 mmol/L Carbon Dioxide Level 28 mmol/L Anion Gap 5.0 mmol/L Blood Urea Nitrogen 21 mg/dl Creatinine 1.09 mg/dl Est Creatinine Clear Calc Drug Dose 74.5 ml/min Estimated GFR () 78.2 Estimated GFR (Non- 67.5 BUN/Creatinine Ratio 19.5 Random Glucose 194 mg/dl Calcium Level 8.5 mg/dl Chemistry Specimen Hemolysis Bedside Glucose 201 mg/dl 221 mg/dl 181 mg/dl Test 08/18/17 06:27 08/18/17 07:54 White Blood Count 18.82 K/uL Red Blood Count 3.55 M/uL Hemoglobin 11.4 g/dL Hematocrit 33.1 % Mean Corpuscular Volume 93.2 fL Mean Corpuscular Hemoglobin 32.1 pg Mean Corpuscular Hemoglobin Concent 34.4 g/dl RDW Standard Deviation 45.9 fL RDW Coefficient of Variation 13.4 % Platelet Count 237 K/uL Mean Platelet Volume 9.4 fL Sodium Level 135 mmol/L Potassium Level 4.4 mmol/L Chloride Level 105 mmol/L Carbon Dioxide Level 26 mmol/L Anion Gap 4.0 mmol/L Blood Urea Nitrogen 16 mg/dl Creatinine 0.94 mg/dl Est Creatinine Clear Calc Drug Dose 86.4 ml/min Estimated GFR () 93.5 Estimated GFR (Non- 80.7 BUN/Creatinine Ratio 16.9 Random Glucose 141 mg/dl Calcium Level 8.2 mg/dl Bedside Glucose 128 mg/dl Assessment and Plan 1. s/p left TKR 2. pre-DM, now w/ hyperglycemia - due to perioperative decadron, stress of surgery, and dextrose-containing fluids. Dextrose has been removed. Anticipate BSGs will improve by tomorrow. Novolog for meals/HS in meantime. 3. alcohol dependence - no signs/symptoms of etoh withdrawal at this time; Has not required any ativan while in the hospital follow carefully for such. Low threshold to institute gabapentin protocol if needed. ativan prn. 4.Leukocytosis likely reactive patient also received decadron. no abnormal vitals. will monitor. will recheck in AM.
[2017-08-18] MEDS ORDERED: NURSING VERBAL MED ORDER ONE (14:30)
[2017-08-19 06:15] VITALS: BP 143/76; PULSE 77; TEMP 36.5; O2SAT 93
[2017-08-19 06:32] LABS: HEMATOCRIT 34.4 % (42-52); HEMOGLOBIN 11.5 g/dL (14.0-18.0); MEAN CELL VOLUME 95.3 fL (80-100); MEAN CORPUSCULAR HEMOGLOBIN 31.9 pg (25-34); MEAN CORPUSCULAR HGB CONC 33.4 g/dl (32-36); MEAN PLATELET VOLUME 9.6 fL (7.4-10.4); PLATELET COUNT 219 K/uL (130-400); RED CELL DISTRIBUTION WIDTH CV 13.8 % (11.5-14.5); RED CELL DISTRIBUTION WIDTH SD 48.3 fL (36.4-46.3); WHITE BLOOD COUNT 12.14 K/uL (4.8-10.8)
[2017-08-19 07:03] LABS: CALCIUM 8.4 mg/dl (8.5-10.1); CREATININE 1.03 mg/dl (0.60-1.40); POTASSIUM 4.1 mmol/L (3.5-5.1)
[2017-08-19] MEDS: ASPIRIN 81 MG ECTAB PO SCH (07:21)
[2017-08-19] MEDS: CeleBREX 200 MG CAP PO SCH (07:21)
[2017-08-19] MEDS: DOCUSATE SODIUM 100 MG CAP PO SCH (07:21)
[2017-08-19] MEDS: MULTIVITAMIN TAB PO SCH (07:22)
[2017-08-19] MEDS: PANTOprazole SOD 40 MG TAB PO SCH (07:22)
[2017-08-19] MEDS: INSULIN ASPART 100 UNITS/ML 3 ML PEN SC SCH ×2 (07:23→12:00)
--- NOTE | 2017-08-19 07:52 | Orthopedic Progress Note ---
Orthopedic Progress Note Date of Service Aug 19, 2017. Subjective Post OP Day: 2 Reports: feeling well, Denies: chest pain, SOB, nausea / vomiting, light headedness, calf pain Objective calves soft nontender, N/V intact, capillary refill less than 2 sec., dressing C /D/I, A&O x3, toes mobile Date Time Temp Pulse Resp B/P (MAP) Pulse Ox O2 Delivery O2 Flow Rate FiO2 08/19/17 06:15 36.5 77 18 143/76 (98) 93 Room Air 08/18/17 23:50 92 Room Air 08/18/17 23:35 36.6 83 16 101/59 (73) 92 Room Air 08/18/17 16:15 Room Air 08/18/17 15:37 36.6 65 17 142/73 (96) 98 Room Air 08/18/17 14:59 36.5 81 19 160/74 (102) 95 Room Air 08/18/17 12:22 60 17 134/68 (90) 96 Room Air 08/18/17 08:15 Room Air Laboratory Results 24 Hours: Test 08/19/17 06:18 Hematocrit 34.4 % Hemoglobin 11.5 g/dL Assessment & Plan Assessment: POD#2 sp left TKA Plan: PT/OT DVT proph- ASA 871mg big Pain management- Celebrex, [place] DC planning- patient wants to do his own PT at home. DC HOME TODAY
--- NOTE | 2017-08-19 07:54 | Discharge Instructions ---
Discharge Instructions Date of Service Aug 19, 2017. Admission Reason for Admission: Left Knee Osteoarthritis Discharge Discharge Diagnosis / Problem: SP LEFT TKA Discharge Goals Goal(s): Decrease discomfort, Improve function, Increase independence Activity Recommendations Activity Limitations: per Instructions/Follow-up section . Instructions / Follow-Up Instructions / Follow-Up ACTIVITY RECOMMENDATIONS: SELF CARE INSTRUCTIONS AFTER TOTAL KNEE REPLACEMENT A. You may need to continue a physical therapy program after discharge from the hospital. There are several options available to you. Your doctor will assist you in selecting the best one for you. 1. An out-patient facility 2 to 3 times a week for therapy or home therapy. 2. Continue working on all exercises taught to you in the hospital. Your goals should be to increase bending of your knee to 90 degrees and beyond and to fully straighten your knee. B. You may progress at your own pace from walking with a walker or crutches to a cane; then to no assistive devices. C. Make walking a part of your daily routine. Be up as much as comfortable with rest periods throughout the day. Rest with leg elevation is very important. Use the ice wrap frequently for the first 3-4 weeks. D. There are no restrictions on activities. 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 E. Wear the long elastic stockings (RUBY hose) 20 hours a day for 2 weeks after surgery. They can be removed several times a day for laundering and for a bath. F. You may shower, no tub baths until cleared by your doctor. SPECIAL CARE INSTRUCTIONS: VERY IMPORTANT TO READ AND REVIEW A. There are a few signs you need to watch for after you are home. Call [facility] if you notice any of the followin. Increased severe knee pain. Some pain is expected especially when you exercise. 2. Increased swelling in your leg or knee; pain or swelling of the calf muscle in either lower leg. 3. Any fluid drainage from the incision. 4. Shortness of breath or chest pain. B. Please call [facility] at if you have any concerns or questions about your operation or recovery. The doctor or his nurse will return your call promptly. C. You must take antibiotics before dental work, bladder, bowel or other surgery. Your doctor will provide you with a permanent care to carry describing this precaution. IMPORTANT: * REMEMBER TO TAKE ASPIRIN, 81 MG, TWICE DAILY FOR 4 WEEKS UNLESS OTHERWISE DIRECTED. THIS IS YOUR BLOOD THINNER. * HIGH RISK PATIENTS MAY BE PRESCRIBED A STRONGER BLOOD THINNER. THIS WILL BE PROVIDED AT DISCHARGE. * CALL IF INCREASED PAIN, REDNESS, DRAINAGE OR FEVER GREATER THAT 101. * WEAR RUBY HOSE 20 HOURS PER DAY FOR 2 WEEKS. * YOU MAY HAVE A LARGE BAND-AID LIKE DRESSING (SILVERON). THIS WILL REMAIN ON YOUR INCISION FOR 7 DAYS, THEN CAN BE REMOVED. IF INCISION IS LEAKING THROUGH DRESSING, CALL THE OFFICE . FOLLOW UP VISIT: If appointment is not already scheduled: Please call [facility] to make a follow-up appointment for 2 weeks after your surgery at . Current Hospital Diet Patient's current hospital diet: Diabetes Type 2 Diet Discharge Diet Recommended Diet: Regular Diet Procedures Procedures Performed: Left Total Knee Arthroplasty Pending Studies Studies pending at discharge: no Laboratory Results Hemoglobin A1c Test 07/21/17 12:19 Range/Units Estimated Average Glucose 134 mg/dl Hemoglobin A1c 6.3 H 4.5-5.6 % Medical Emergencies . Who to Call and When: Medical Emergencies: If at any time you feel your situation is an emergency, please call 911 immediately. . Non-Emergent Contact Non-Emergency issues call your: Surgeon . "Provider Documentation" section prepared by Shani Moore. . VTE Core Measure Inpt VTE Proph given/why not?: Other Anticoagulation, T.E.D. Stockings, SCD's [place] Drug Monitoring Program Search Results: patient reviewed within database, no issues identified
[2017-08-19 08:11] VITALS: BP 138/64
[2017-08-19 08:25] VITALS: O2SAT 92
[2017-08-19] MEDS ORDERED: ASPEC81 PO (10:12)
[2017-08-19] MEDS ORDERED: CLB200 PO (10:12)
[2017-08-19] MEDS ORDERED: ONDA8TAB6 PO (10:12)
[2017-08-19 10:17] VITALS: BP 138/64; PULSE 77; TEMP 36.5; O2SAT 92
--- NOTE | 2017-08-19 11:04 | Progress Note ---
Subjective Date of Service: Aug 19, 2017. Subjective Pt evaluation today including: conversation w/ patient 71 yo male who is seen for a Left TKA. Patient reports feeling well. Patient reports he takes celebrex sporadically and will probably not take it with his celebrex. Patient denies any fever, chills, nausea, vomiting. Review of Systems Constitutional: No fever, No chills ENT: No hearing loss Respiratory: No cough, No sputum Cardiac: No chest pain Endo: No fatigue Skin: No rash, No itch All Other Systems: Reviewed and Negative Medications Current Inpatient Medications Medications (Trade) Dose Ordered Sig/Vivienne Route Start Time Stop Time Status Last Admin Dose Admin Celecoxib (CeleBREX CAP) 200 mg BID PO 08/17/17 21:00 09/16/17 20:59 08/19/17 07:21 200 MG Acetaminophen/ Hydrocodone Bitart ([place] 5/325 Tab) 1 TABLET FOR PAIN RATING... Q4H PRN PO 08/17/17 09:30 08/31/17 09:29 08/18/17 08:10 2 TAB Morphine Sulfate (MoRPHine SULFATE INJ) FOR PAIN, 2-4MG 2MG FOR P... Q4H PRN IV 08/17/17 09:30 08/31/17 09:29 Acetaminophen (Tylenol Tab) 650 mg Q6H PRN PO 08/17/17 09:30 09/16/17 09:29 Magnesium Hydroxide (Milk Of Magnesia Susp) 30 ml Q6H PRN PO 08/17/17 09:30 09/16/17 09:29 Bisacodyl (Dulcolax Supp) 10 mg DAILY PRN IL 08/17/17 09:30 09/16/17 09:29 Sodium Biphosphate/ Sodium Phosphate (Fleet Enema) 132 ml DAILY PRN IL 08/17/17 09:30 09/16/17 09:29 Docusate Sodium (coLACE CAP) 100 mg BID PO 08/17/17 21:00 09/16/17 20:59 08/19/17 07:21 100 MG Diphenhydramine HCl (Benadryl Cap) 25 mg Q8H PRN PO 08/17/17 09:30 09/16/17 09:29 Zolpidem Tartrate (Ambien Tab) 5 mg HSZ PRN PO 08/17/17 09:30 09/16/17 09:29 Multivitamins (Multivitamin Tab) 1 tab QAM PO 08/18/17 09:00 09/17/17 08:59 08/19/17 07:22 1 TAB Ondansetron HCl (Zofran Inj) 4 mg Q6H PRN IV 08/17/17 09:30 09/16/17 09:29 Metoclopramide HCl (Reglan Inj) 10 mg Q6H PRN IV 08/17/17 09:30 09/16/17 09:29 Pantoprazole Sodium (Protonix Tab) 40 mg QAM PO 08/18/17 09:00 08/22/17 08:59 08/19/17 07:22 40 MG Tramadol HCl (Ultram Tab) 1 tablet for pain rating... Q4H PRN PO 08/17/17 09:30 09/16/17 09:29 Aspirin (Ecotrin Tab) 81 mg BID PO 08/17/17 21:00 09/16/17 20:59 08/19/17 07:21 81 MG Insulin Aspart (novoLOG ASPART) SLIDING SCALE If C... ACHS SC 08/17/17 17:15 09/16/17 17:14 08/18/17 08:47 3 UNITS Glucose (Glucose 40% Gel) 15-30 GRAMS 15 GRAMS... UD PRN PO 08/17/17 12:15 09/16/17 12:14 Glucose (Glucose Chew Tab) 4-8 Tablets 4 Tabl... UD PRN PO 08/17/17 12:15 09/16/17 12:14 Dextrose (Dextrose 50% 50ML Syringe) 25-50ML OF 50% DW IV FOR... UD PRN IV 08/17/17 12:15 09/16/17 12:14 Glucagon (Glucagon Inj) 1 mg UD PRN SQ 08/17/17 12:15 09/16/17 12:14 Lorazepam (Ativan Tab) 1 mg ONE PRN PO 08/17/17 12:30 Objective Vital Signs Date Time Temp Pulse Resp B/P (MAP) Pulse Ox O2 Delivery O2 Flow Rate FiO2 08/19/17 10:17 36.5 77 18 92 Room Air 08/19/17 08:25 92 Room Air 08/19/17 08:11 138/64 (88) 08/19/17 07:15 Room Air 08/19/17 06:15 36.5 77 18 143/76 (98) 93 Room Air 08/18/17 23:50 92 Room Air 08/18/17 23:35 36.6 83 16 101/59 (73) 92 Room Air 08/18/17 16:15 Room Air 08/18/17 15:37 36.6 65 17 142/73 (96) 98 Room Air 08/18/17 14:59 36.5 81 19 160/74 (102) 95 Room Air 08/18/17 12:22 60 17 134/68 (90) 96 Room Air Physical Exam General Appearance: WD/WN, no apparent distress Eyes: normal inspection ENT: normal ENT inspection Respiratory/Chest: no respiratory distress, no accessory muscle use Extremities: normal inspection Neurologic/Psychiatric: alert, normal mood/affect Skin: normal color, no rash Laboratory Results Last 24 Hours Test 08/18/17 11:58 08/18/17 17:11 08/18/17 20:34 08/19/17 06:18 Bedside Glucose 108 mg/dl 122 mg/dl 127 mg/dl White Blood Count 12.14 K/uL Red Blood Count 3.61 M/uL Hemoglobin 11.5 g/dL Hematocrit 34.4 % Mean Corpuscular Volume 95.3 fL Mean Corpuscular Hemoglobin 31.9 pg Mean Corpuscular Hemoglobin Concent 33.4 g/dl RDW Standard Deviation 48.3 fL RDW Coefficient of Variation 13.8 % Platelet Count 219 K/uL Mean Platelet Volume 9.6 fL Sodium Level 138 mmol/L Potassium Level 4.1 mmol/L Chloride Level 106 mmol/L Carbon Dioxide Level 28 mmol/L Anion Gap 4.0 mmol/L Blood Urea Nitrogen 18 mg/dl Creatinine 1.03 mg/dl Est Creatinine Clear Calc Drug Dose 78.8 ml/min Estimated GFR () 83.7 Estimated GFR (Non- 72.2 BUN/Creatinine Ratio 17.3 Random Glucose 111 mg/dl Calcium Level 8.4 mg/dl Test 08/19/17 07:02 Bedside Glucose 104 mg/dl Assessment and Plan 1. s/p left TKR 2. pre-DM, now w/ hyperglycemia - due to perioperative decadron, stress of surgery, and dextrose-containing fluids. Patient has not required sigificant insulin now that dextrose has been stopped. No need for metformin at home for now 3. alcohol dependence - no signs/symptoms of etoh withdrawal at this time; Has not required any ativan while in the hospital Doubt patient will go through withdrawal. 4.Leukocytosis likely reactive patient also received decadron. no abnormal vitals. improved Chronic NSAIDS Patient will likely no longer require celebrex. Patient states he takes it sporadically. Infomred patient of risks of taking chronic NSAIDs, which include heart attacks and CKD. Patient understood. Will defer outpatient pain management to primary ortho team.
[2017-08-19] MEDS ORDERED: HYDR-5688 PO (14:10)
--- NOTE | 2017-08-25 18:01 | DISCHARGE SUMMARY ---
HISTORY OF PRESENT ILLNESS: This is a 71-year-old male patient of Dr. Reyes'dawson complaining of chronic left knee pain, longstanding, progressively getting worse. The patient elected to proceed with a left total knee arthroplasty. PAST MEDICAL HISTORY: Irregular heartbeat and rheumatoid arthritis. POSTOPERATIVE COURSE: The patient underwent a left total knee arthroplasty on 08/17/2017. He was followed closely with medical consultation, DVT prophylaxis in the form of aspirin, physical therapy and pain control. The patient did well postoperatively and was discharged home on postoperative day #2. PHYSICAL EXAMINATION: LEFT KNEE: Silverlon dressing was clean, dry and intact. There was no redness or drainage. He had no calf tenderness. Negative Homans sign. NEUROLOGICALLY: Neurovascularly, he was intact in his left lower extremity. DIAGNOSES: Status post left total knee arthroplasty with a history of irregular heartbeat and rheumatoid arthritis. PLAN: The patient was discharged home. He will do his own physical therapy at home as he has had a total knee replacement on the other side and is familiar with the protocol. He will continue aspirin twice daily for DVT prophylaxis. He will continue his preadmission medications as well as the addition of pain medications. The patient will follow up as scheduled as an outpatient.
== END 2017-08-19 14:55 | disposition home or self-care (01) | DRG 470 ==
LOC: C.ACU 05:02 → C.3E 09:23 → ENRESERV 09:47
PROVIDERS: ADMIT Orthopaedic Surgery Sports Medicine; ATTEND Orthopaedic Surgery Sports Medicine
PROC: 0SRD0J9 Replacement of Left Knee Joint with Synthetic Substitute, Cemented, Open Approach (ICD-10-PCS; principal; 2017-08-17 07:00)
DX: M17.12 Unilateral primary osteoarthritis, left knee (principal); M06.9 Rheumatoid arthritis, unspecified; R73.03 Prediabetes; Z87.891 Personal history of nicotine dependence; F10.20 Alcohol dependence, uncomplicated; R73.9 Hyperglycemia, unspecified; Z96.651 Presence of right artificial knee joint

== ENCOUNTER 2022-10-07 18:30 | Inpatient (IN) ==
[2022-10-07 19:22] LABS: Albumin Level 3.4 gm/dl (3.4-5.0); BUN Creatinine Ratio 29.9 (10-20); Bilirubin,Total 0.7 mg/dl (0.2-1.0); Calcium 8.6 mg/dl (8.5-10.1); Creatinine Clr Calc Pharmacy 65.1 ml/min; Est GFR (African American) 69.3 ml/min; Est GFR (Non-African American) 59.8 ml/min; Globulin 3.5 gm/dl (2.5-4.0); Magnesium 1.9 mg/dl (1.7-2.4); Potassium 3.6 mmol/L (3.5-5.1); Total Protein 6.9 gm/dl (6.0-8.3)
[2022-10-07 19:34] LABS: Troponin I High Sensitivity 100.7 pg/ml (0-20)
[2022-10-07 19:36] LABS: Hematocrit (blood only) 26.7 % (42.0-52.0); Hemoglobin 9.3 g/dl (14.0-18.0); Mean Corpuscular Hemoglobin 30.8 pg (25.0-34.0); Mean Corpuscular Hgb Conc 34.8 g/dL (32.0-36.0); Mean Corpuscular Volume 88.4 fL (80.0-100.0); Mean Platelet Volume 10.1 fL (9.4-12.4); Platelet Count 94 K/uL (130-400); RDW Coefficient of Variation 14.7 % (11.5-14.5); RDW Standard Deviation 46.7 fL (36.4-46.3); Red Blood Count 3.02 M/uL (4.70-6.10); White Blood Count 2.57 K/ul (4.8-10.8)
[2022-10-07 19:42] LABS: Dohle Bodies 1+; Influenza A virus by PCR Negative (Neg); Influenza B virus by PCR Negative (Neg); Platelet Estimate Decreased (Normal); RSV by PCR Negative (Neg); SARS CoV2 RNA(COVID-19) Ceph NEGATIVE (Negative); Toxic Granulation 1+
[2022-10-07 19:44] LABS: Basophils # (auto) 0.01 K/uL (0-0.2); Basophils % (auto) 0.4 %; Immature Granulocytes % (auto) 7.8 %; Lymphocytes # (auto) 0.77 K/uL (1.2-3.4); Monocytes # (auto) 0.77 K/uL (0.11-0.59); Neutrophils # (auto) 0.82 K/uL (1.40-6.50); Neutrophils % (auto) 31.8 %
--- NOTE | 2022-10-07 20:03 | Emergency Department Note ---
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 States he has been having some pain in the left neck and feeling a bit short of breath. Called the oncology office and referred here for further evaluation. Over the weekend was nauseous and not eating and drinking well. States he was a bit confused and having hard time using his phone. Reports that this is improved some and has been trying to eat or drink a bit more the last day or 2. States a bit of abdominal bloating. Denies any falls. Denies any right-sided neck pain. Patient states the pain the left side his neck is better if he turns a certain way. Swallowing okay. Denies trauma. Not on blood thinners or aspirin. Denies recent travel. Patient on chemotherapy PAST MEDICAL HISTORY: As noted above MEDICATIONS: Reviewed home medications and currently on chemotherapy SOCIAL HISTORY: Former smoker PHYSICAL EXAM: GENERAL: alert and oriented in no acute distress on stretcher Head: normocephalic and atraumatic EYES: No injection, discharge or icterus. NECK: Trachea midline. Supple with some slight left-sided lower neck tenderness without crepitus or appreciated adenopathy. ENT: Mucous membranes pink and moist. Pharynx without erythema or exudate. LUNGS: Airway patent. No retractions. Breath sounds clear with good air entry bilaterally. HEART: Regular rate and rhythm. No chest wall tenderness ABDOMEN: Nnon-tender, without guarding or rebound. Does have some mild abdominal bloating. SKIN: Acyanotic, warm, dry, without rashes EXTREMITIES: Without tenderness or deformity and trace bilateral small NEUROLOGICAL: No focal deficits. No aphasia. No facial droop or slurred speech. EK bpm sinus rhythm with PACs. No PVC. No acute ST segment elevation or depression noted with QTc of 419. CONTINUOUS CARDIAC MONITORING: was ordered and showed a heart rate of 90s-100s bpm in normal sinus rhythm to sinus tachycardia 1 view chest x-ray per my interpretation: Evidence of port in place. Significant right middle lobe consolidation with what appears to be some slight airspace opacities in the bilateral lower lobes. Patient's laboratory studies and imaging reviewed. Differential includes Infection, dehydration, metabolic abnormality, hypo/hyperglycemia, electrolyte disturbance, anemia, hypoxia, cardiac sources, gastrointestinal maladies such as ascites. As well as other pathologies. IMPRESSION/MEDICAL DECISION MAKING: Patient with some abdominal bloating some slight confusion with decreased intake over the weekend and shortness of breath and left-sided neck discomfort. On chemotherapy related to cancer. Reviewed recent blood work. Evidence of acute hyponatremia today of 121. Stable renal function. Troponin elevated 100 today. Not having active chest pain but again some pain provokable on the left side of the neck. No crepitus or significant swelling noted. Negative flu COVID and RSV. No severe LFT abnormalities noted. Is neutropenic but no fevers reported based on labs and probably related to his chemotherapy. Sent for a CT scan of the chest to exclude PE as well as a scan of the neck and the abdomen given his pain in his neck and swelling in his abdomen. Not significantly tender in the abdomen however. We will order some slow IV fluids to help with his hyponatremia. CT report of the abdomen pelvis without significant acute intra- abdominal pathology noted. CT angiogram of the chest shows evidence radiology report of small PEs but no area of pneumonia according to the radiologist who I discussed the case with as well as right lung mass. Patient be covered with Zosyn on cultures and lactate ordered. He is ordered some IV fluids. Anticoagulation with heparin ordered. Repeat troponin ordered but not having active chest pain. Does not appear to be in any distress. CT of the neck without acute findings per the radiology report unclear what may be causing some of the discomfort he is having here could be muscular in nature. Discussed with the hospitalist team after updating the patient and his daughter at bedside. Repeat troponin is downtrending and lactate not elevated. Question if this is some demand component from his infection more so than any acute ACS or PE related troponin elevation. DIAGNOSIS: Hyponatremia, carcinoma, neutropenia, pneumonia, lung mass, pulmonary embolism, elevated troponin DISPOSITION: Hospitalist will evaluate Patient was agreeable with this plan. Critical Care I have personally spent 46 minutes of critical care time in the direct management of this patient. This includes bedside care, interpretation of diagnostic studies, and testing, discussion with consultants, patient, and family members, and other required patient management activities. These 46 minutes is in excess of all separately billable procedures. Past Med/Surg History Medical History (Updated 10/07/22 @ 21:44 by Thanh Machuca M.D.) Carcinomatosis Esophageal cancer Gout High cholesterol History of COVID-19 07/2021 Hypertension Irregular heart rate Hx of "2 beats at one time" per pt/no further details from patient PACs noted on 07/04/22 EKG Mild aortic stenosis Per 05/2020 echo Osteoarthritis Pulmonary nodules Surgical History (Updated 07/10/22 @ 12:08 by Shanthi Berry RN) History of arthroscopy of left knee History of bilateral cataract extraction History of carpal tunnel surgery of left wrist History of colonoscopy History of esophagogastroduodenoscopy (EGD) History of eye surgery left--laser eye History of hand surgery left hand History of hernia repair History of lumbar spinal fusion History of tooth extraction History of total left knee replacement (TKR) History of total right knee replacement (TKR) Port-A-Cath in place (07/10/22) Insertion of Access Port Left Subclavian Vein with Fluoroscopy(Left) - Sa refugio Cary MD, FACS Family History Father Cancer Uncle Cancer Other No family history of adverse response to anesthesia Social History Smoking Status: Former smoker Age Started Using Tobacco: 29; Age Quit Using Tobacco: 71; packs per day: 1; Second Hand Exposure: No; Hx Alcohol Use: Yes Alcohol type: beer Alcohol Intake Frequency: 4 or More x per/Week Hx Substance Use: No Preferred Language: Swedish Communication Ability: Effective Carpenter Foreman Required: No Beliefs That Will Affect Care: None marital status: marital status details: Ex with him today Current Living Situation: Alone current occupational status: employed 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 How many Children do You have: 2 Feels Safe at Home: Yes during the past year weight has: decreased > 10 lbs Assistive Devices: Denture - Upper, Denture - Lower and Glasses Allergies Allergies Allergy/AdvReac Type Severity Reaction Status Date / Time oxycodone AdvReac Intermediate ELEVATED BP Verified 07/10/22 08:56 Home Meds Home Medications Medication Instructions Recorded Confirmed losartan 25 mg tablet 25 mg PO QAM 05/15/22 10/07/22 furosemide 20 mg tablet 20 mg PO DAILY 10/07/22 10/07/22 ondansetron 8 mg disintegrating 8 mg PO Q8 PRN Nausea 10/07/22 10/07/22 tablet Results & Data (ED) Vital Signs Vital Signs - 24 hr 10/07/22 18:36 10/07/22 19:19 10/07/22 19:24 Temperature 36.9 C Temperature Source Temporal Artery Scan Pulse Rate 105 H 93 H Pulse Rate [Right Finger] 97 H Respiratory Rate 19 22 Respiratory Effort / Characteristics Non-Labored Spontaneous Respiratory Depth Normal Respiratory Pattern Regular Blood Pressure 146/71 H Blood Pressure [Right Arm] 142/74 H Blood Pressure Mean 96 Blood Pressure Mean [Right Arm] 96 Pulse Oximetry 90 89 L Oxygen Delivery Method Room Air Room Air Sepsis Recent Fever Within 48 Hours No Sepsis New/Unexplained Change in Mental Status N/A Sepsis Action Taken by Nursing No Action Required 10/07/22 20:29 10/07/22 21:23 10/07/22 22:04 Temperature Temperature Source Pulse Rate Pulse Rate [Right Finger] 102 H 100 H 90 Respiratory Rate 24 22 24 Respiratory Effort / Characteristics Non-Labored Respiratory Depth Normal Respiratory Pattern Blood Pressure Blood Pressure [Right Arm] 145/68 H 145/68 H 125/83 Blood Pressure Mean Blood Pressure Mean [Right Arm] 93 93 97 Pulse Oximetry 89 L 92 92 Oxygen Delivery Method Room Air Room Air Room Air Sepsis Recent Fever Within 48 Hours Sepsis New/Unexplained Change in Mental Status Sepsis Action Taken by Nursing Laboratory Data 10/07/22 18:48 10/07/22 18:48 Lab Results 10/07/22 10/07/22 10/07/22 Range/Units 18:48 18:48 18:48 WBC 2.57 L (4.8-10.8) K/ul RBC 3.02 L (4.70-6.10) M/uL Hgb 9.3 L (14.0-18.0) g/dl Hct 26.7 L (42.0-52.0) % MCV 88.4 (80.0-100.0) fL MCH 30.8 (25.0-34.0) pg MCHC 34.8 (32.0-36.0) g/dL RDW Std Deviation 46.7 H (36.4-46.3) fL RDW Coeff of Deandre 14.7 H (11.5-14.5) % Plt Count 94 L (130-400) K/uL MPV 10.1 (9.4-12.4) fL Immature Gran % (Auto) 7.8 % Neut % (Auto) 31.8 % Lymph % (Auto) 30.0 % Esmeralda % (Auto) 30.0 % Eos % (Auto) 0.0 % Baso % (Auto) 0.4 % Neut # (Auto) 0.82 L* (1.40-6.50) K/uL Lymph # (Auto) 0.77 L (1.2-3.4) K/uL Esmeralda # (Auto) 0.77 H (0.11-0.59) K/uL Eos # (Auto) 0.00 (0-0.50) K/uL Baso # (Auto) 0.01 (0-0.2) K/uL Immature Gran # (Auto) 0.20 (0.01-0.20) K/uL Toxic Granulation 1+ Dohle Bodies 1+ Platelet Estimate Decreased L (Normal) PT 10.9 (9.0-12.0) Seconds INR 1.0 (0.9-1.1) APTT 35.3 H (21.0-31.0) Seconds PTT Ratio 1.3 Sodium 121 L (136-145) mmol/L Potassium 3.6 (3.5-5.1) mmol/L Chloride 87 L (98-107) mmol/L Carbon Dioxide 26 (21-32) mmol/L Anion Gap 8 (3-11) BUN 35 H (6-23) mg/dl Creatinine 1.17 (0.6-1.4) mg/dl Est Cr Clr Drug Dosing 65.1 ml/min Est GFR ( Amer) 69.3 ml/min Est GFR (Non-Af Amer) 59.8 ml/min BUN/Creatinine Ratio 29.9 H (10-20) Glucose 152 H (70-99(Fasting)) mg/dl Osmolality (280-300) mOsm/kg Lactate (0.4-2.0) mmol/L Calcium 8.6 (8.5-10.1) mg/dl Magnesium 1.9 (1.7-2.4) mg/dl Total Bilirubin 0.7 (0.2-1.0) mg/dl AST 27 (13-39) U/L ALT 23 (7-52) U/L Alkaline Phosphatase 78 (34-104) U/L Troponin I High Sens 100.7 H* (0-20) pg/ml Total Protein 6.9 (6.0-8.3) gm/dl Albumin 3.4 (3.4-5.0) gm/dl Globulin 3.5 (2.5-4.0) gm/dl Albumin/Globulin Ratio 1.0 (0.9-2) Lipase 14 (11-82) U/L TSH (0.300-4.500) uIu/ml Urine Color Urine Appearance (Clear) Urine pH (4.5-7.5) Ur Specific He[place]in (1.000-1.030) Urine Protein (Negative) Urine Glucose (UA) (Negative) Urine Ketones (Negative) Urine Blood (Negative) Urine Nitrite (Negative) Urine Bilirubin (Negative) Urine Urobilinogen (Negative) Ur Leukocyte Esterase (Negative) SARS-CoV-2 (PCR) (Negative) Influenza Type A (PCR) (Neg) Influenza Type B (PCR) (Neg) RSV (RT-PCR) (Neg) 10/07/22 10/07/22 10/07/22 Range/Units 18:48 18:48 18:48 WBC (4.8-10.8) K/ul RBC (4.70-6.10) M/uL Hgb (14.0-18.0) g/dl Hct (42.0-52.0) % MCV (80.0-100.0) fL MCH (25.0-34.0) pg MCHC (32.0-36.0) g/dL RDW Std Deviation (36.4-46.3) fL RDW Coeff of Deandre (11.5-14.5) % Plt Count (130-400) K/uL MPV (9.4-12.4) fL Immature Gran % (Auto) % Neut % (Auto) % Lymph % (Auto) % Esmeralda % (Auto) % Eos % (Auto) % Baso % (Auto) % Neut # (Auto) (1.40-6.50) K/uL Lymph # (Auto) (1.2-3.4) K/uL Esmeralda # (Auto) (0.11-0.59) K/uL Eos # (Auto) (0-0.50) K/uL Baso # (Auto) (0-0.2) K/uL Immature Gran # (Auto) (0.01-0.20) K/uL Toxic Granulation Dohle Bodies Platelet Estimate (Normal) PT (9.0-12.0) Seconds INR (0.9-1.1) APTT (21.0-31.0) Seconds PTT Ratio Sodium (136-145) mmol/L Potassium (3.5-5.1) mmol/L Chloride (98-107) mmol/L Carbon Dioxide (21-32) mmol/L Anion Gap (3-11) BUN (6-23) mg/dl Creatinine (0.6-1.4) mg/dl Est Cr Clr Drug Dosing ml/min Est GFR ( Amer) ml/min Est GFR (Non-Af Amer) ml/min BUN/Creatinine Ratio (10-20) Glucose (70-99(Fasting)) mg/dl Osmolality 264 L (280-300) mOsm/kg Lactate (0.4-2.0) mmol/L Calcium (8.5-10.1) mg/dl Magnesium (1.7-2.4) mg/dl Total Bilirubin (0.2-1.0) mg/dl AST (13-39) U/L ALT (7-52) U/L Alkaline Phosphatase (34-104) U/L Troponin I High Sens (0-20) pg/ml Total Protein (6.0-8.3) gm/dl Albumin (3.4-5.0) gm/dl Globulin (2.5-4.0) gm/dl Albumin/Globulin Ratio (0.9-2) Lipase (11-82) U/L TSH 0.887 (0.300-4.500) uIu/ml Urine Color Urine Appearance (Clear) Urine pH (4.5-7.5) Ur Specific [place] (1.000-1.030) Urine Protein (Negative) Urine Glucose (UA) (Negative) Urine Ketones (Negative) Urine Blood (Negative) Urine Nitrite (Negative) Urine Bilirubin (Negative) Urine Urobilinogen (Negative) Ur Leukocyte Esterase (Negative) SARS-CoV-2 (PCR) NEGATIVE (Negative) Influenza Type A (PCR) Negative (Neg) Influenza Type B (PCR) Negative (Neg) RSV (RT-PCR) Negative (Neg) 10/07/22 10/07/22 10/07/22 Range/Units 21:22 22:00 22:00 WBC (4.8-10.8) K/ul RBC (4.70-6.10) M/uL Hgb (14.0-18.0) g/dl Hct (42.0-52.0) % MCV (80.0-100.0) fL MCH (25.0-34.0) pg MCHC (32.0-36.0) g/dL RDW Std Deviation (36.4-46.3) fL RDW Coeff of Deandre (11.5-14.5) % Plt Count (130-400) K/uL MPV (9.4-12.4) fL Immature Gran % (Auto) % Neut % (Auto) % Lymph % (Auto) % Esmeralda % (Auto) % Eos % (Auto) % Baso % (Auto) % Neut # (Auto) (1.40-6.50) K/uL Lymph # (Auto) (1.2-3.4) K/uL Esmeralda # (Auto) (0.11-0.59) K/uL Eos # (Auto) (0-0.50) K/uL Baso # (Auto) (0-0.2) K/uL Immature Gran # (Auto) (0.01-0.20) K/uL Toxic Granulation Dohle Bodies Platelet Estimate (Normal) PT (9.0-12.0) Seconds INR (0.9-1.1) APTT (21.0-31.0) Seconds PTT Ratio Sodium (136-145) mmol/L Potassium (3.5-5.1) mmol/L Chloride (98-107) mmol/L Carbon Dioxide (21-32) mmol/L Anion Gap (3-11) BUN (6-23) mg/dl Creatinine (0.6-1.4) mg/dl Est Cr Clr Drug Dosing ml/min Est GFR ( Amer) ml/min Est GFR (Non-Af Amer) ml/min BUN/Creatinine Ratio (10-20) Glucose (70-99(Fasting)) mg/dl Osmolality (280-300) mOsm/kg Lactate 1.0 (0.4-2.0) mmol/L Calcium (8.5-10.1) mg/dl Magnesium (1.7-2.4) mg/dl Total Bilirubin (0.2-1.0) mg/dl AST (13-39) U/L ALT (7-52) U/L Alkaline Phosphatase (34-104) U/L Troponin I High Sens 85.6 H* D (0-20) pg/ml Total Protein (6.0-8.3) gm/dl Albumin (3.4-5.0) gm/dl Globulin (2.5-4.0) gm/dl Albumin/Globulin Ratio (0.9-2) Lipase (11-82) U/L TSH (0.300-4.500) uIu/ml Urine Color Yellow Urine Appearance Clear (Clear) Urine pH 6.0 (4.5-7.5) Ur Specific He[place]in 1.026 (1.000-1.030) Urine Protein Negative (Negative) Urine Glucose (UA) Negative (Negative) Urine Ketones Negative (Negative) Urine Blood Negative (Negative) Urine Nitrite Negative (Negative) Urine Bilirubin Negative (Negative) Urine Urobilinogen Negative (Negative) Ur Leukocyte Esterase Negative (Negative) SARS-CoV-2 (PCR) (Negative) Influenza Type A (PCR) (Neg) Influenza Type B (PCR) (Neg) RSV (RT-PCR) (Neg) Administered Medications Sodium Chloride (Nss) 500 mls @ 80 mls/hr IV .Q6H15M [facility] Stop: 11/06/22 20:14 Last Admin: 10/07/22 20:42 Dose: 80 mls/hr Documented By: EDGARDOW Heparin Sodium/Dextrose (Heparin Sodium/Dextrose) 25,000 units in 500 mls @ 31 mls/hr IV .Q16H8M [facility]; Protocol Stop: 11/06/22 21:44 Last Admin: 10/07/22 22:39 Dose: 1,550 units/hr, 31 mls/hr Documented By: AGUSTIN Co-signed By: EDGARDOW Discontinued Medications Heparin Sodium (Porcine) (Heparin Sod (Porcine) 1000 Unit/Ml) 1 units IV NOW ONE Stop: 10/07/22 21:45 Last Admin: 10/07/22 22:39 Dose: 5,000 units Documented By: AGUSTIN Co-signed By: ASW Sodium Chloride (Nss 1000ml) 1,000 mls @ 999 mls/hr IV .Q1H1M ONE Stop: 10/07/22 22:28 Last Admin: 10/07/22 22:21 Dose: 999 mls/hr Documented By: AGUSTIN Piperacillin Sod/Tazobactam Sod (Zosyn) 4.5 gm in 120 mls @ 240 mls/hr IV NOW ONE Stop: 10/07/22 21:57 Last Admin: 10/07/22 22:24 Dose: 240 mls/hr Documented By: AGUSTIN Ioversol (Optiray 320 500ml) 106 ml IV ONCE ONE Stop: 10/07/22 20:21 Last Admin: 10/07/22 20:21 Dose: 106 ml Documented By: [place] Imaging Data Radiologist's Impression: Chest CTA 10/07/22 19:30 CR Exam(s): CTA CHEST EXAM: CT Angiography Chest With Intravenous Contrast CLINICAL HISTORY: Reason for exam: PE, sob, hypoxic. TECHNIQUE: Axial computed tomographic angiography images of the chest with intravenous contrast. Automated exposure control was utilized for the study. A dose lowering technique was utilized adhering to the principles of ALARA. MIP reconstructed images were created and reviewed. COMPARISON: No relevant prior studies available. FINDINGS: Pulmonary arteries: The pulmonary arterial tree is well opacified with contrast. There is a thin cylindrical nonocclusive pulmonary embolism extending into the right lower lobe and one in the right upper lobe as well consistent with pulmonary embolism, acute versus chronic. Aorta: Atherosclerotic changes of the thoracic aorta. No aneurysm or dissection is seen. Lungs: There is an approximately 9 cm triangular area of airspace consolidation in the right upper lobe consistent with pneumonia. There is a 1.8 x 2.8 cm oval nodular density in the right suprahilar region which could represent mass versus lymphadenopathy. Recommend short-term follow-up to resolution. Scattered subsegmental atelectasis in the lung bases. Pleural space: Trace right pleural effusion measuring 1 cm. No pneumothorax. Heart: The heart is not enlarged. Moderate coronary calcification is present. No significant pericardial effusion. No evidence of RV dysfunction. Bones/joints: Mild to moderate multilevel degenerative changes throughout the spine. No acute fracture or subluxation is seen. There are several old healed rib fractures. Soft tissues: Unremarkable. Lymph nodes: See above. Tubes, lines and devices: There is a Port-A-Cath in standard position. IMPRESSION: 1. The pulmonary arterial tree is well opacified with contrast. There is a thin cylindrical nonocclusive pulmonary embolism extending into the right lower lobe and one in the right upper lobe as well consistent with pulmonary embolism, acute versus chronic. 2. There is an approximately 9 cm triangular area of airspace consolidation in the right upper lobe consistent with pneumonia. There is a 1.8 x 2.8 cm oval nodular density in the right suprahilar region which could represent mass versus lymphadenopathy. Recommend short-term follow-up to resolution. Communications: Call Doctor Pulmonary Embolism Electronically signed by: Thanh Stephenson MD 10/07/22 21:23 PM Neck CTA 10/07/22 19:34 Exam(s): CTA NECK With Contrast EXAM: CT Angiography Neck With Intravenous Contrast CLINICAL HISTORY: Reason for exam: L neck pain, hx Ca. TECHNIQUE: Routine carotid CT angiography protocol was performed with intravenous contrast. NASCET criteria using the distal ICAs for comparison were used for evaluation of stenoses. Automated exposure control was utilized for the study. A dose lowering technique was utilized adhering to the principles of ALARA. MIP reconstructed images were created and reviewed. CONTRAST: 106 ML OPTIRAY 320 COMPARISON: None. FINDINGS: VASCULATURE: Right common carotid artery: Unremarkable. No occlusion or significant stenosis. No dissection. Right internal carotid artery: Mild calcified plaque in the right carotid bulb causing 20% stenosis. No dissection. Right external carotid artery: Unremarkable. No occlusion. Right vertebral artery: Unremarkable. No occlusion or significant stenosis. No dissection. Left common carotid artery: Unremarkable. No occlusion or significant stenosis. No dissection. Left internal carotid artery: 15% stenosis in the left carotid bulb due to calcified plaque. There is mild tortuosity distally. No dissection. Left external carotid artery: Unremarkable. No occlusion. Left vertebral artery: Unremarkable. No occlusion or significant stenosis. No dissection. NECK: Bones/joints: Moderate multilevel degenerative changes throughout the cervical spine degenerative fusion of C5-C7. No acute fracture or subluxation. Soft tissues: Unremarkable. Lung apices: Clear. Tubes, lines and devices: There is a Port-A-Cath on the left which appears unremarkable. Other findings: . CAROTID STENOSIS REFERENCE USING NASCET CRITERIA: % ICA stenosis = (1 - narrowest ICA diameter/diameter of distal cervical ICA) x 100. Mild - <50% stenosis. Moderate - 50-69% stenosis. Severe - 70-94% stenosis. Near occlusion - 95-99% stenosis. Occluded - 100% stenosis. IMPRESSION: No acute findings in the arteries of the neck. Electronically signed by: Thanh Stephenson MD 10/07/22 21:42 PM Abdomen/Pelvis CT 10/07/22 19:36 Exam(s): CT ABDOMEN + PELVIS With Contrast EXAM: CT Abdomen and Pelvis With Intravenous Contrast CLINICAL HISTORY: Reason for exam: bloating. TECHNIQUE: Axial computed tomography images of the abdomen and pelvis with intravenous contrast. Automated exposure control was utilized for the study. A dose lowering technique was utilized adhering to the principles of ALARA. CONTRAST: 106 ML OPTIRAY 320 COMPARISON: No relevant prior studies available. FINDINGS: Lung bases: Unremarkable. No mass. No consolidation. ABDOMEN: Liver: Mild fatty infiltration of the liver. No focal liver lesion is seen. Gallbladder and bile ducts: Unremarkable. No calcified stones. No ductal dilation. Pancreas: Unremarkable. No mass. No ductal dilation. Spleen: Unremarkable. No splenomegaly. Adrenals: Unremarkable. No mass. Kidneys and ureters: Mild bilateral perinephric edema is nonspecific but can be seen in renal insufficiency. The kidneys are otherwise unremarkable. No hydronephrosis or ureterolithiasis is seen. Stomach and bowel: Unremarkable. No obstruction. No mucosal thickening. PELVIS: Appendix: The appendix is normal. Bowel loops are nondilated. No acute inflammatory changes are seen involving the bowel. Bladder: Unremarkable. No mass. Reproductive: Unremarkable as visualized. ABDOMEN and PELVIS: Intraperitoneal space: Unremarkable. No free air. No significant fluid collection. Bones/joints: Moderate multilevel degenerative changes are seen throughout the spine. No acute fracture or subluxation is seen for. Soft tissues: 4 cm fat-containing right inguinal hernia. Vasculature: The abdominal aorta is mildly calcified but nondilated. There is no aneurysm or dissection. There is 70% stenosis of the mid right common femoral artery. Lymph nodes: Unremarkable. No enlarged lymph nodes. IMPRESSION: 1. Mild bilateral perinephric edema is nonspecific but can be seen in renal insufficiency. The kidneys are otherwise unremarkable. No hydronephrosis or ureterolithiasis is seen. 2. The appendix is normal. Bowel loops are nondilated. No acute inflammatory changes are seen involving the bowel. Electronically signed by: Thanh Stephenson MD 10/07/22 21:17 PM Discharge Plan Visit Data Chief Complaint: Shortness of Breath/Dyspnea Stated Complaint: BLOOD CLOT LUNG,REF BY DOC, SOB,LOW TEMP ED Provider: Thanh Machuca Discharge Problem: Acute hyponatremia, Carcinoma, Pulmonary embolism, Neutropenia, Pneumonia, Mass of right lung Patient Disposition: Being Evaluated by Hospitalist Condition: Fair Forms Stand Alone Forms: My [facility] [employer] Prescriptions Prescriptions: No Action losartan 25 mg Tablet 25 mg PO QAM ondansetron 8 mg tablet,disintegrating 8 mg PO Q8 PRN (Reason: Nausea) furosemide 20 mg tablet 20 mg PO DAILY Referrals Referrals: Hermelinda Dooley M.D. [Primary Care Provider] - Pulmonary embolism Qualifiers: Pulmonary embolism type: unspecified Chronicity: unspecified Acute cor pulmonale presence: without acute cor pulmonale Qualified Code(s): I26.99 - Other pulmonary embolism without acute cor pulmonale Neutropenia Qualifiers: Neutropenia type: unspecified Qualified Code(s): D70.9 - Neutropenia, unspecified Pneumonia Qualifiers: Pneumonia type: due to unspecified organism Laterality: right Lung location: middle lobe of lung Qualified Code(s): J18.9 - Pneumonia, unspecified organism
[2022-10-07] MEDS ORDERED: OPTIRAY 320 500ml IV ONE (20:20)
[2022-10-07] MEDS: SODIUM CHLORIDE 0.9% 500 ML IV SCH (20:42)
[2022-10-07 21:08] LABS: Partial Thromboplastin Ratio 1.3; Partial Thromboplastin Time 35.3 Seconds (21.0-31.0); Prothrombin Time 10.9 Seconds (9.0-12.0)
--- NOTE | 2022-10-07 21:17 | CT Scan Report ---
Exam(s): CT ABDOMEN + PELVIS With Contrast EXAM: CT Abdomen and Pelvis With Intravenous Contrast CLINICAL HISTORY: Reason for exam: bloating. TECHNIQUE: Axial computed tomography images of the abdomen and pelvis with intravenous contrast. Automated exposure control was utilized for the study. A dose lowering technique was utilized adhering to the principles of ALARA. CONTRAST: 106 ML OPTIRAY 320 COMPARISON: No relevant prior studies available. FINDINGS: Lung bases: Unremarkable. No mass. No consolidation. ABDOMEN: Liver: Mild fatty infiltration of the liver. No focal liver lesion is seen. Gallbladder and bile ducts: Unremarkable. No calcified stones. No ductal dilation. Pancreas: Unremarkable. No mass. No ductal dilation. Spleen: Unremarkable. No splenomegaly. Adrenals: Unremarkable. No mass. Kidneys and ureters: Mild bilateral perinephric edema is nonspecific but can be seen in renal insufficiency. The kidneys are otherwise unremarkable. No hydronephrosis or ureterolithiasis is seen. Stomach and bowel: Unremarkable. No obstruction. No mucosal thickening. PELVIS: Appendix: The appendix is normal. Bowel loops are nondilated. No acute inflammatory changes are seen involving the bowel. Bladder: Unremarkable. No mass. Reproductive: Unremarkable as visualized. ABDOMEN and PELVIS: Intraperitoneal space: Unremarkable. No free air. No significant fluid collection. Bones/joints: Moderate multilevel degenerative changes are seen throughout the spine. No acute fracture or subluxation is seen for. Soft tissues: 4 cm fat-containing right inguinal hernia. Vasculature: The abdominal aorta is mildly calcified but nondilated. There is no aneurysm or dissection. There is 70% stenosis of the mid right common femoral artery. Lymph nodes: Unremarkable. No enlarged lymph nodes. IMPRESSION: 1. Mild bilateral perinephric edema is nonspecific but can be seen in renal insufficiency. The kidneys are otherwise unremarkable. No hydronephrosis or ureterolithiasis is seen. 2. The appendix is normal. Bowel loops are nondilated. No acute inflammatory changes are seen involving the bowel. Electronically signed by: Thanh Stephenson MD 10/07/22 21:17 PM
--- NOTE | 2022-10-07 21:24 | CT Scan Report ---
Exam(s): CTA CHEST EXAM: CT Angiography Chest With Intravenous Contrast CLINICAL HISTORY: Reason for exam: PE, sob, hypoxic. TECHNIQUE: Axial computed tomographic angiography images of the chest with intravenous contrast. Automated exposure control was utilized for the study. A dose lowering technique was utilized adhering to the principles of ALARA. MIP reconstructed images were created and reviewed. COMPARISON: No relevant prior studies available. FINDINGS: Pulmonary arteries: The pulmonary arterial tree is well opacified with contrast. There is a thin cylindrical nonocclusive pulmonary embolism extending into the right lower lobe and one in the right upper lobe as well consistent with pulmonary embolism, acute versus chronic. Aorta: Atherosclerotic changes of the thoracic aorta. No aneurysm or dissection is seen. Lungs: There is an approximately 9 cm triangular area of airspace consolidation in the right upper lobe consistent with pneumonia. There is a 1.8 x 2.8 cm oval nodular density in the right suprahilar region which could represent mass versus lymphadenopathy. Recommend short-term follow-up to resolution. Scattered subsegmental atelectasis in the lung bases. Pleural space: Trace right pleural effusion measuring 1 cm. No pneumothorax. Heart: The heart is not enlarged. Moderate coronary calcification is present. No significant pericardial effusion. No evidence of RV dysfunction. Bones/joints: Mild to moderate multilevel degenerative changes throughout the spine. No acute fracture or subluxation is seen. There are several old healed rib fractures. Soft tissues: Unremarkable. Lymph nodes: See above. Tubes, lines and devices: There is a Port-A-Cath in standard position. IMPRESSION: 1. The pulmonary arterial tree is well opacified with contrast. There is a thin cylindrical nonocclusive pulmonary embolism extending into the right lower lobe and one in the right upper lobe as well consistent with pulmonary embolism, acute versus chronic. 2. There is an approximately 9 cm triangular area of airspace consolidation in the right upper lobe consistent with pneumonia. There is a 1.8 x 2.8 cm oval nodular density in the right suprahilar region which could represent mass versus lymphadenopathy. Recommend short-term follow-up to resolution. Communications: Call Doctor Pulmonary Embolism Electronically signed by: Thanh Stephenson MD 10/07/22 21:23 PM
[2022-10-07] MEDS ORDERED: SODIUM CHLORIDE 0.9% 1000ML 1,000 ML IV ONE (21:28)
[2022-10-07] MEDS ORDERED: Heparin IV Adult Wt-Based Standard WITH Bolus Protocol IV STA (21:28)
[2022-10-07] MEDS ORDERED: PIPERACILLIN/TAZOBACTAM 4.5 GM/120 ML BAG IV ONE (21:28)
--- NOTE | 2022-10-07 21:43 | CT Scan Report ---
Exam(s): CTA NECK With Contrast EXAM: CT Angiography Neck With Intravenous Contrast CLINICAL HISTORY: Reason for exam: L neck pain, hx Ca. TECHNIQUE: Routine carotid CT angiography protocol was performed with intravenous contrast. NASCET criteria using the distal ICAs for comparison were used for evaluation of stenoses. Automated exposure control was utilized for the study. A dose lowering technique was utilized adhering to the principles of ALARA. MIP reconstructed images were created and reviewed. CONTRAST: 106 ML OPTIRAY 320 COMPARISON: None. FINDINGS: VASCULATURE: Right common carotid artery: Unremarkable. No occlusion or significant stenosis. No dissection. Right internal carotid artery: Mild calcified plaque in the right carotid bulb causing 20% stenosis. No dissection. Right external carotid artery: Unremarkable. No occlusion. Right vertebral artery: Unremarkable. No occlusion or significant stenosis. No dissection. Left common carotid artery: Unremarkable. No occlusion or significant stenosis. No dissection. Left internal carotid artery: 15% stenosis in the left carotid bulb due to calcified plaque. There is mild tortuosity distally. No dissection. Left external carotid artery: Unremarkable. No occlusion. Left vertebral artery: Unremarkable. No occlusion or significant stenosis. No dissection. NECK: Bones/joints: Moderate multilevel degenerative changes throughout the cervical spine degenerative fusion of C5-C7. No acute fracture or subluxation. Soft tissues: Unremarkable. Lung apices: Clear. Tubes, lines and devices: There is a Port-A-Cath on the left which appears unremarkable. Other findings: . CAROTID STENOSIS REFERENCE USING NASCET CRITERIA: % ICA stenosis = (1 - narrowest ICA diameter/diameter of distal cervical ICA) x 100. Mild - <50% stenosis. Moderate - 50-69% stenosis. Severe - 70-94% stenosis. Near occlusion - 95-99% stenosis. Occluded - 100% stenosis. IMPRESSION: No acute findings in the arteries of the neck. Electronically signed by: Thanh Stephenson MD 10/07/22 21:42 PM
[2022-10-07] MEDS ORDERED: HEPARIN SOD (PORCINE) 1000 UNIT/ML IV ONE (21:44)
[2022-10-07 22:30] LABS: Appearance Urine Clear (Clear); Bilirubin Urine Negative (Negative); Blood Urine Negative (Negative); Color Urine Yellow; Glucose Urine UA Negative (Negative); Ketones Urine Negative (Negative); Leukocyte Esterase Urine Negative (Negative); Nitrite Urine Negative (Negative); Protein Urine Negative (Negative); Specific Gravity Urine 1.026 (1.000-1.030); Urobilinogen Urine Negative (Negative)
[2022-10-07] MEDS: HEPARIN SODIUM/DEXTROSE 25,000 UNITS/500 ML BAG IV SCH (22:39)
[2022-10-07 22:41] LABS: Troponin I High Sensitivity 85.6 pg/ml (0-20)
[2022-10-08] MEDS: SODIUM CHLORIDE 0.9% 500 ML IV SCH (01:50)
[2022-10-08] MEDS ORDERED: NITROGLYCERIN SL 0.4 MG/TAB TAB SL PRN (02:17)
[2022-10-08] MEDS ORDERED: LEVALBUTEROL HCL 1.25 MG/3 ML NEB NEB PRN (02:17)
[2022-10-08] MEDS ORDERED: ACETAMINOPHEN 325 MG TAB PO PRN (02:17)
[2022-10-08] MEDS ORDERED: SODIUM CHLORIDE 0.9% 1000ML 1,000 ML IV SCH (02:17)
[2022-10-08] MEDS ORDERED: ONDANSETRON INJ 2 MG/ML 2 ML VIAL IV PRN (02:17)
[2022-10-08] MEDS ORDERED: POLYETHYLENE (MIRALAX) 17 GM PACK PO PRN (02:17)
[2022-10-08] MEDS ORDERED: DOXYCYCLINE HYCLATE 100 MG CAP PO ONE (02:45)
--- NOTE | 2022-10-08 03:15 | History and Physical Report ---
DATE OF ADMISSION: 10/07/2022. CHIEF COMPLAINT: Shortness of breath. 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 There is plan for further chemo as per the patient. He lives alone at home. Last few days, he is having shortness of breath, dizziness, weakness, and since last Thursday and Thursday, he slept whole days, did not feel like eating anything, and Thursday drank lot of water and then Thursday, he was able to micturate. He called his oncology office and advised to come to the ER. In the ER, he was found to have PE and also pneumonia. The patient denies any fevers, no cough. Last weekend, on for half day, he lost his voice because of hoarseness, currently speaking okay. Denies any chest pain, no headache, no blurred visions, no earache, no runny nose. Denies any difficulty swallowing. No abdominal pain. Feeling somewhat nauseous and feels belly is bloated. Denies any diarrhea or constipation. No swelling in the legs. His ambulatory status is not that great. He is staggering at home, does not use any cane. He says walking in the room is making him short of breath. Currently, in the ER he is saturating okay on the room air, hemodynamically stable. ALLERGIES: OXYCODONE. PAST MEDICAL HISTORY: As mentioned above. PAST SURGICAL HISTORY: Arthroscopy of left knee, bilateral cataract extraction, carpal tunnel surgery of left wrist, colonoscopy, eye surgery, hand surgery, hernia repair, lumbar spinal fusion, tooth extraction, bilateral knee replacements. FAMILY HISTORY: Significant for father had cancer, uncle has cancer, mother had pneumonia. SOCIAL HISTORY: Former smoker, quit in 2017. He says he drinks a couple of beers, but in the last 3 weeks he has not drank any alcohol. Lives alone. MEDICATIONS: The patient states he is only taking losartan 25 mg p.o. daily. REVIEW OF SYSTEMS: As per HPI. Rest of review of systems is negative. PHYSICAL EXAMINATION: GENERAL: The patient is of moderate built, not in acute distress. VITAL SIGNS: Temperature 36.9, pulse 96, respiratory rate 24, blood pressure 150/61, oxygen 92% on room air. HEENT: Pupils equal, round and reactive to light. Oral mucosa moist. NECK: No JVD, no neck masses. CARDIOVASCULAR: S1 and S2 heard. Regular rate and rhythm. No murmur, no gallop. RESPIRATORY SYSTEM: Normal AP diameter. No accessory muscle use. No wheezing, no crackles. ABDOMEN: Soft, bowel sounds present, nontender, no distention. CENTRAL NERVOUS SYSTEM: Cranial nerves II through XII are grossly intact, nonfocal. EXTREMITIES: No edema, no erythema. LABORATORY DATA: WBC 2.5, hemoglobin 9.3, hematocrit 26.7, platelets 94. PT 19.9, INR 1, APTT 35.3. Sodium 121, potassium 3.6, chloride 87, CO2 of 26, BUN 35, creatinine 1.1, serum glucose 152. Serum osmolality 264. Lactate 1, calcium 8.6, magnesium 1.9, total bilirubin 0.7, AST 27, ALT 23, alkaline phosphatase 78. Troponin I high sensitivity 85.6. Lipase 14, procalcitonin 5.6. Urinalysis negative. SARS-CoV-2 PCR negative. Influenza A and B PCR negative. RSV PCR negative. IMAGING DATA: CT of the abdomen and pelvis with contrast showed mild bilateral perinephric edema, it is nonspecific, but can be seen in renal insufficiency. No hydronephrosis or urolithiasis seen. Appendix is normal. No acute inflammatory changes seen involving the bowels. Neck CTA, no acute findings. CT of the chest is showing nonocclusive pulmonary embolism, extending into the right lower lobe, and one in the right upper lobe as well consistent with pulmonary embolism, acute versus chronic. Consolidation in the right upper lobe consistent with pneumonia. A 1.8 x 2.8 cm oval nodular density in the right suprahilar region, could represent mass versus lymphadenopathy. EKG: Showing sinus rhythm with premature atrial complexes at a rate of 96. No QT prolongation. ASSESSMENT AND PLAN: This is a 76-year-old male who presents with shortness of breath, found to have pneumonia and pulmonary embolism. 1. Shortness of breath: Most likely secondary to pneumonia and pulmonary embolism. CTA chest is showing nonocclusive pulmonary thrombus extending into the right lower lobe and also in the right upper lobe and also there is pneumonia in the right upper lobe. Started on Zosyn and p.o. doxycycline, IV heparin. Will monitor in the hospital. 2. Elevation of troponin: Most likely demand ischemia. Because of pulmonary embolism, will rule out any right heart strain with echocardiogram. Follow serial cardiac enzymes. If any concern, consult cardiology. 3 The patient also was found to have hyponatremia, sodium of 121. Getting fluids. Serum osmolality level of 264. Follow urine osmolality and urine sodium levels. Getting gentle fluids. Will follow BMP q. 6 hours. Consult nephrology in the a.m. 3. Pancytopenia: Most likely from the chemo. Will follow the platelets. The patient is getting IV heparin. 4. 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 Will consult hematology/oncology while the patient is in the hospital. 5. History of hypertension: Losartan, withholding parameters. 6. Deep venous thrombosis prophylaxis: On IV heparin. Monitor the platelets. DISPOSITION: Closely monitor in the tele floor. Level 1 full code. Expect to discharge home and follow with family doctor. Job ID: [id number] [facility]
[2022-10-08] MEDS: PIPERACILLIN/TAZOBACTAM 3.375 GM in DEXTROSE 5% 100 ML IV SCH ×3 (05:13→21:20)
[2022-10-08 06:20] LABS: Hematocrit (blood only) 25.9 % (42.0-52.0); Hemoglobin 9.1 g/dl (14.0-18.0); Mean Corpuscular Hemoglobin 31.3 pg (25.0-34.0); Mean Corpuscular Hgb Conc 35.1 g/dL (32.0-36.0); Mean Platelet Volume 10.3 fL (9.4-12.4); Platelet Count 102 K/uL (130-400); RDW Coefficient of Variation 14.9 % (11.5-14.5); RDW Standard Deviation 47.6 fL (36.4-46.3); Red Blood Count 2.91 M/uL (4.70-6.10); White Blood Count 2.95 K/ul (4.8-10.8)
[2022-10-08 06:22] LABS: BUN Creatinine Ratio 25.6 (10-20); Calcium 8.3 mg/dl (8.5-10.1); Creatinine Clr Calc Pharmacy 84.9 ml/min; Est GFR (African American) 95.1 ml/min; Est GFR (Non-African American) 82.1 ml/min; Magnesium 1.9 mg/dl (1.7-2.4); Potassium 3.6 mmol/L (3.5-5.1)
[2022-10-08 06:34] LABS: Troponin I High Sensitivity 63.3 pg/ml (0-20)
[2022-10-08 06:57] LABS: Partial Thromboplastin Ratio 1.8
--- NOTE | 2022-10-08 07:13 | XRay Report ---
XR chest 1V portable CLINICAL HISTORY: SOB TECHNIQUE: Single frontal radiograph of the chest was obtained. Comparison: Comparison is made to chest radiograph 07/10/2022 FINDINGS: A port catheter is seen. The cardiomediastinal silhouette is normal. Right midlung airspace opacities are seen along with less evident and bilateral lower lung opacities. No evidence of pleural effusion or pneumothorax. IMPRESSION: Multifocal airspace opacities favoring pneumonia with or without superimposed aspiration/atelectasis. ACT 112: Negative or not required by law. Electronically signed by: Richard Burch M.D. 10/08/2022 7:11 AM
[2022-10-08] MEDS: LOSARTAN POTASSIUM 25 MG TAB PO SCH (08:15)
[2022-10-08 10:39] LABS: ALC (manual) 1.06 K/uL (1.2-3.4); ANC (manual) 1.15 K/uL (1.4-6.5); Basophils # (manual) 0.03 K/uL (0-0.2); Basophils % (manual) 1 %; Blast # (manual) 0.03 K/uL (0-0); Blast Cells % (manual) 1 %; Lymphocytes # (manual) 1.06 K/uL (1.2-3.4); Lymphocytes % (manual) 36 %; Metamyelocytes # (manual) 0.06 K/uL (0-0); Metamyelocytes % (manual) 2 %; Monocytes # (manual) 0.62 K/uL (0.11-0.59); Monocytes % (manual) 21 %; Neutrophils # (manual) 1.15 K/uL (1.40-6.50); Neutrophils % (manual) 39 %
[2022-10-08 11:19] LABS: BUN Creatinine Ratio 21.8 (10-20); Calcium 7.9 mg/dl (8.5-10.1); Creatinine Clr Calc Pharmacy 87.9 ml/min; Est GFR (African American) 96.5 ml/min; Est GFR (Non-African American) 83.2 ml/min; Potassium 3.7 mmol/L (3.5-5.1)
--- NOTE | 2022-10-08 11:29 | Nephrology Consultation ---
Date of Consultation October 08, 2022 Assessment & Plan (1) Acute hyponatremia: Patient revealed acute hyponatremia likely due to hypovolemia based on the urine studies. Sodium has improved after normal saline at 125. Target sodium is 127 today. -We will stop normal saline and monitor off fluids. -We will put him on a fluid restriction of 1.2 L daily. -We will can monitor sodium twice daily (2) Pulmonary embolism: Patient found to have acute PE and on heparin drip. He will need to be transitioned to Coumadin. 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 He was found to have hyponatremia with sodium of 121 at 6 PM on 10/07/2022. Patient also found to have acute PE and pneumonia. He is on heparin drip. He was given normal saline at 75 mL/h. Sodium this morning of 125. Urine osmolality is 243, urine sodium less than 10. Patient reports feeling unwell since the weekend initially with nausea vomiting and diarrhea. He was not able to eat or drink anything. Then on Thursday he tried to drink a lot about a gallon of water daily. Despite increased intake his weakness worsened and presented to the emergency room. He feels better this morning. He denies any shortness of breath or leg swelling. He is now able to eat and drink well. No decrease in urine output. Blood pressure slightly high. Home medication is losartan and he denied using hydrochlorothiazide. Allergies Allergy/AdvReac Type Severity Reaction Status Date / Time oxycodone AdvReac Intermediate ELEVATED BP Verified 07/10/22 08:56 Home Medications Medication Instructions Recorded Confirmed Type losartan 25 mg tablet 25 mg PO QAM 05/15/22 10/07/22 History furosemide 20 mg tablet 20 mg PO DAILY 10/07/22 10/07/22 History ondansetron 8 mg disintegrating 8 mg PO Q8 PRN Nausea 10/07/22 10/07/22 History tablet Patient History Medical History (Updated 10/07/22 @ 21:44 by Thanh Machuca M.D.) Carcinomatosis Esophageal cancer Gout High cholesterol History of COVID-19 07/2021 Hypertension Irregular heart rate Hx of "2 beats at one time" per pt/no further details from patient PACs noted on 07/04/22 EKG Mild aortic stenosis Per 05/2020 echo Osteoarthritis Pulmonary nodules Surgical History (Updated 07/10/22 @ 12:08 by Shanthi Berry RN) History of arthroscopy of left knee History of bilateral cataract extraction History of carpal tunnel surgery of left wrist History of colonoscopy History of esophagogastroduodenoscopy (EGD) History of eye surgery left--laser eye History of hand surgery left hand History of hernia repair History of lumbar spinal fusion History of tooth extraction History of total left knee replacement (TKR) History of total right knee replacement (TKR) Port-A-Cath in place (07/10/22) Insertion of Access Port Left Subclavian Vein with Fluoroscopy(Left) - Tyshawn Cary MD, FACS Family History Father Cancer Uncle Cancer Other No family history of adverse response to anesthesia Social History Smoking Status: Former smoker Age Started Using Tobacco: 29; Age Quit Using Tobacco: 71; packs per day: 1; Second Hand Exposure: No; Do You Dip or Chew Tobacco: No; Hx Alcohol Use: Yes Alcohol type: beer Alcohol Intake Frequency: 4 or More x per/Week Hx Substance Use: Yes Last Used Substance: Days (ago) Last Used Substance Other:: marijuana brownies in past none recently for nausea related to chemo Preferred Language: Luxembourgish Communication Ability: Effective Configuration Manager Required: No Beliefs That Will Affect Care: None marital status: marital status details: Ex with him today Current Living Situation: Alone Current Living Situation Comment: home alone current occupational status: employed 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 Gastrointestinal: Abdomen is soft, non distended, non tender, bowel sounds are present CVS: Regular rate and rhythm. No murmurs, rubs or gallops Musculoskeletal: No joint or muscle tenderness Extremities: Non tender, no edema, peripheral pulses are present Neuro: Oriented, no tremors, no focal neurological deficits Skin: No rashes Results & Data ([facility]) Vital Signs (Past 12 Hours) Vital Signs Temp Pulse Pulse Resp BP Pulse Ox O2 Del Method 10/08/22 08:00 Room Air 10/08/22 07:17 36.9 C 100 H 20 165/79 H 90 Room Air 10/08/22 05:16 105 H 19 134/74 90 Room Air 10/08/22 04:41 36.7 C 110 H 16 116/67 90 Room Air 10/08/22 02:29 36.7 C 78 17 116/67 90 Room Air 10/08/22 01:54 104 H 19 92 10/08/22 00:18 96 H 24 92 Room Air Laboratory Results 10/08/22 10:48 10/07/22 10/07/22 10/08/22 18:48 18:48 05:22 WBC 2.57 L 2.95 L RBC 3.02 L 2.91 L MCV 88.4 89.0 MCH 30.8 31.3 MCHC 34.8 35.1 RDW Std Deviation 46.7 H 47.6 H RDW Coeff of Deandre 14.7 H 14.9 H Plt Count 94 L 102 L MPV 10.1 10.3 Albumin 3.4 (2) Pulmonary embolism Acute cor pulmonale presence: without acute cor pulmonale Chronicity: unspec ified Pulmonary embolism type: unspecified Qualified Code(s): I26.99 - Other pulmonary embolism without acute cor pulmonale
[2022-10-08 11:31] LABS: Troponin I High Sensitivity 51.3 pg/ml (0-20)
--- NOTE | 2022-10-08 14:42 | Consultation ---
Date of Consultation October 08, 2022 Assessment & Plan (1) Pulmonary embolism: Pulmonary embolism in the context of a metastatic malignancy. Even though that malignancy seems to have responded nicely to initial therapy and he will no longer be receiving cytotoxic's, we expect its persistence even at a subclinical level and with that the potential for persistent "hypercoagulability" as a result. If he is not anticipated to need additional invasive procedures and otherwise seems stable, could convert to apixaban. My usual practice is to consider the initial therapeutic heparinization has the first part of "loading" but to complete a balance of a total of 7 days from the start of anticoagulation continuing on 10 mg of apixaban twice daily but dropping down to the maintenance dose of 5 mg twice daily thereafter MRI scan at diagnosis did not suggest any brain metastases so there should not be excessive risk of bleeding there. He did have esophageal disease and there may be some risk for GI bleeding at that site though he has had none so far. 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 In discussion it is more of academic the practical import as we are treating him with a classic small cell lung cancer regimen. He has completed induction and will be scheduled to transition to the start of immune checkpoint inhibitor "maintenance" with single agent atezolizumab on October 15. There could be some flexibility in delaying that if he has continued resolution of pulmonary symptoms but seems in excellent spirits and functionality today so may well be able to keep to that schedule. Plan As above, could convert to apixaban if there is no further need for potential interruption of heparin for procedures and he is showing no signs of other clinical instability. Should continue with "loading" doses of apixaban to complete a total of 7 days of initial anticoagulation (counting the days that he received heparin prior to the start of apixaban) and then transition to standard long-term dosing as above Should be counseled to be particularly aware of the direct and indirect indicators of possible GI hemorrhage He is scheduled to start his maintenance atezolizumab as an outpatient on October 15 and we can keep to that if he shows continued significant stability but also have the flexibility to delay it somewhat if he needs time for further recovery History of Present Illness Reason for Consultation: Patient with metastatic aggressive neuroendocrine carcinoma admitted with pulmonary embolism and possible pneumonitis Attending Physician: Anahy Watkins MD History of Present Illness Patient with 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 He has completed 4 of 4 planned combination cycles of etoposide/carboplatinum/atezolizumab as of 09/26/2022. He was admitted with significant respiratory deterioration and on CT imaging found to have pulmonary embolism as well possible pneumonitis. Initially imaging did not comment but I have asked for further review of the previously multiple metastatic lung nodules and informally confirmed that they have largely resolved on treatment. He feels quite well today after starting on anticoagulation and notes that the dysphagia that marked his disease presentation has resolved as well Allergies Allergy/AdvReac Type Severity Reaction Status Date / Time oxycodone AdvReac Intermediate ELEVATED BP Verified 07/10/22 08:56 Home Medications Medication Instructions Recorded Confirmed Type losartan 25 mg tablet 25 mg PO QAM 05/15/22 10/07/22 History furosemide 20 mg tablet 20 mg PO DAILY 10/07/22 10/07/22 History ondansetron 8 mg disintegrating 8 mg PO Q8 PRN Nausea 10/07/22 10/07/22 History tablet apixaban 5 mg tablet (Eliquis) 5 mg PO BID #74 tabs 10/08/22 Rx Patient History Medical History (Updated 10/08/22 @ 21:30 by Ajit Gomes MD) Carcinomatosis Esophageal cancer Gout High cholesterol History of COVID-19 07/2021 Hypertension Irregular heart rate Hx of "2 beats at one time" per pt/no further details from patient PACs noted on 07/04/22 EKG Mild aortic stenosis Per 05/2020 echo Osteoarthritis Pulmonary nodules Surgical History (Updated 07/10/22 @ 12:08 by Shanthi Berry RN) History of arthroscopy of left knee History of bilateral cataract extraction History of carpal tunnel surgery of left wrist History of colonoscopy History of esophagogastroduodenoscopy (EGD) History of eye surgery left--laser eye History of hand surgery left hand History of hernia repair History of lumbar spinal fusion History of tooth extraction History of total left knee replacement (TKR) History of total right knee replacement (TKR) Port-A-Cath in place (07/10/22) Insertion of Access Port Left Subclavian Vein with Fluoroscopy(Left) - Kristina Cary MD, FACS Family History Father Cancer Uncle Cancer Other No family history of adverse response to anesthesia Social History Smoking Status: Former smoker Age Started Using Tobacco: 29; Age Quit Using Tobacco: 71; packs per day: 1; Second Hand Exposure: No; Do You Dip or Chew Tobacco: No; Hx Alcohol Use: Yes Alcohol type: beer Alcohol Intake Frequency: 4 or More x per/Week Hx Substance Use: Yes Last Used Substance: Days (ago) Last Used Substance Other:: marijuana brownies in past none recently for nausea related to chemo Preferred Language: Romanian Communication Ability: Effective Tooling Supervisor Required: No Beliefs That Will Affect Care: None marital status: marital status details: Ex with him today Current Living Situation: Alone Current Living Situation Comment: home alone current occupational status: employed 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 How many Children do You have: 2 Other Information That Helps Us Care for You: No Feels Safe at Home: Yes Safety Concerns: Feels Safe At This Time during the past year weight has: decreased > 10 lbs Assistive Devices: None Physical Exam Physical Exam: Alert, cooperative, stable exam Results & Data ([facility]) Vital Signs (Past 12 Hours) Vital Signs Temp Pulse Resp BP Pulse Ox O2 Del Method 10/08/22 12:27 37 C 98 H 20 151/79 H 92 Room Air 10/08/22 08:00 Room Air 10/08/22 07:17 36.9 C 100 H 20 165/79 H 90 Room Air 10/08/22 05:16 105 H 19 134/74 90 Room Air 10/08/22 04:41 36.7 C 110 H 16 116/67 90 Room Air Laboratory Results Laboratory Results - last 24 hr 10/07/22 10/07/22 10/07/22 18:48 18:48 18:48 WBC 2.57 L RBC 3.02 L Hgb 9.3 L Hct 26.7 L MCV 88.4 MCH 30.8 MCHC 34.8 RDW Std Deviation 46.7 H RDW Coeff of Deandre 14.7 H Plt Count 94 L MPV 10.1 Immature Gran % (Auto) 7.8 Neut % (Auto) 31.8 Lymph % (Auto) 30.0 [place] % (Auto) 30.0 Eos % (Auto) 0.0 Baso % (Auto) 0.4 Neut # (Auto) 0.82 L* Lymph # (Auto) 0.77 L [place] # (Auto) 0.77 H Eos # (Auto) 0.00 Baso # (Auto) 0.01 Immature Gran # (Auto) 0.20 Neutrophils % (Manual) Lymphocytes % (Manual) Monocytes % (Manual) Basophils % (Manual) Metamyelocytes % (Man) Blast Cells % (Manual) Neutrophils # (Manual) Total Absolute Neuts Lymphocytes # (Manual) Total Abs Lymphocytes Monocytes # (Manual) Basophils # (Manual) Metamyelocytes # (Man) Blast Cells # (Man) Blood Smear Review Toxic Granulation 1+ Dohle Bodies 1+ Platelet Estimate Decreased L PT 10.9 INR 1.0 APTT 35.3 H PTT Ratio 1.3 Sodium 121 L Potassium 3.6 Chloride 87 L Carbon Dioxide 26 Anion Gap 8 BUN 35 H Creatinine 1.17 Est Cr Clr Drug Dosing 65.1 Est GFR ( Amer) 69.3 Est GFR (Non-Af Amer) 59.8 BUN/Creatinine Ratio 29.9 H Glucose 152 H Osmolality Lactate Calcium 8.6 Magnesium 1.9 Total Bilirubin 0.7 AST 27 ALT 23 Alkaline Phosphatase 78 Troponin I High Sens 100.7 H* Total Protein 6.9 Albumin 3.4 Globulin 3.5 Albumin/Globulin Ratio 1.0 Lipase 14 Procalcitonin TSH Urine Color Urine Appearance Urine pH Ur Specific [place] Urine Protein Urine Glucose (UA) Urine Ketones Urine Blood Urine Nitrite Urine Bilirubin Urine Urobilinogen Ur Leukocyte Esterase Urine Osmolality Ur Random Sodium SARS-CoV-2 (PCR) Influenza Type A (PCR) Influenza Type B (PCR) RSV (RT-PCR) 10/07/22 10/07/22 10/07/22 18:48 18:48 18:48 WBC RBC Hgb Hct MCV MCH MCHC RDW Std Deviation RDW Coeff of Deandre Plt Count MPV Immature Gran % (Auto) Neut % (Auto) Lymph % (Auto) [place] % (Auto) Eos % (Auto) Baso % (Auto) Neut # (Auto) Lymph # (Auto) [place] # (Auto) Eos # (Auto) Baso # (Auto) Immature Gran # (Auto) Neutrophils % (Manual) Lymphocytes % (Manual) Monocytes % (Manual) Basophils % (Manual) Metamyelocytes % (Man) Blast Cells % (Manual) Neutrophils # (Manual) Total Absolute Neuts Lymphocytes # (Manual) Total Abs Lymphocytes Monocytes # (Manual) Basophils # (Manual) Metamyelocytes # (Man) Blast Cells # (Man) Blood Smear Review Toxic Granulation Dohle Bodies Platelet Estimate PT INR APTT PTT Ratio Sodium Potassium Chloride Carbon Dioxide Anion Gap BUN Creatinine Est Cr Clr Drug Dosing Est GFR ( Amer) Est GFR (Non-Af Amer) BUN/Creatinine Ratio Glucose Osmolality 264 L Lactate Calcium Magnesium Total Bilirubin AST ALT Alkaline Phosphatase Troponin I High Sens Total Protein Albumin Globulin Albumin/Globulin Ratio Lipase Procalcitonin TSH 0.887 Urine Color Urine Appearance Urine pH Ur Specific [place] Urine Protein Urine Glucose (UA) Urine Ketones Urine Blood Urine Nitrite Urine Bilirubin Urine Urobilinogen Ur Leukocyte Esterase Urine Osmolality Ur Random Sodium SARS-CoV-2 (PCR) NEGATIVE Influenza Type A (PCR) Negative Influenza Type B (PCR) Negative RSV (RT-PCR) Negative 10/07/22 10/07/22 10/07/22 21:22 21:22 22:00 WBC RBC Hgb Hct MCV MCH MCHC RDW Std Deviation RDW Coeff of Deandre Plt Count MPV Immature Gran % (Auto) Neut % (Auto) Lymph % (Auto) [place] % (Auto) Eos % (Auto) Baso % (Auto) Neut # (Auto) Lymph # (Auto) [place] # (Auto) Eos # (Auto) Baso # (Auto) Immature Gran # (Auto) Neutrophils % (Manual) Lymphocytes % (Manual) Monocytes % (Manual) Basophils % (Manual) Metamyelocytes % (Man) Blast Cells % (Manual) Neutrophils # (Manual) Total Absolute Neuts Lymphocytes # (Manual) Total Abs Lymphocytes Monocytes # (Manual) Basophils # (Manual) Metamyelocytes # (Man) Blast Cells # (Man) Blood Smear Review Toxic Granulation Dohle Bodies Platelet Estimate PT INR APTT PTT Ratio Sodium 121 L Potassium Chloride Carbon Dioxide Anion Gap BUN Creatinine Est Cr Clr Drug Dosing Est GFR ( Amer) Est GFR (Non-Af Amer) BUN/Creatinine Ratio Glucose Osmolality Lactate Calcium Magnesium Total Bilirubin AST ALT Alkaline Phosphatase Troponin I High Sens 85.6 H* D Total Protein Albumin Globulin Albumin/Globulin Ratio Lipase Procalcitonin TSH Urine Color Yellow Urine Appearance Clear Urine pH 6.0 Ur Specific [place] 1.026 Urine Protein Negative Urine Glucose (UA) Negative Urine Ketones Negative Urine Blood Negative Urine Nitrite Negative Urine Bilirubin Negative Urine Urobilinogen Negative Ur Leukocyte Esterase Negative Urine Osmolality 243 L Ur Random Sodium SARS-CoV-2 (PCR) Influenza Type A (PCR) Influenza Type B (PCR) RSV (RT-PCR) 10/07/22 10/07/22 10/08/22 22:00 22:00 05:22 WBC 2.95 L RBC 2.91 L Hgb 9.1 L Hct 25.9 L MCV 89.0 MCH 31.3 MCHC 35.1 RDW Std Deviation 47.6 H RDW Coeff of Deandre 14.9 H Plt Count 102 L MPV 10.3 Immature Gran % (Auto) Neut % (Auto) Lymph % (Auto) [place] % (Auto) Eos % (Auto) Baso % (Auto) Neut # (Auto) Lymph # (Auto) [place] # (Auto) Eos # (Auto) Baso # (Auto) Immature Gran # (Auto) Neutrophils % (Manual) 39 Lymphocytes % (Manual) 36 Monocytes % (Manual) 21 Basophils % (Manual) 1 Metamyelocytes % (Man) 2 Blast Cells % (Manual) 1 Neutrophils # (Manual) 1.15 L Total Absolute Neuts 1.15 L Lymphocytes # (Manual) 1.06 L Total Abs Lymphocytes 1.06 L Monocytes # (Manual) 0.62 H Basophils # (Manual) 0.03 Metamyelocytes # (Man) 0.06 H Blast Cells # (Man) 0.03 H Blood Smear Review Toxic Granulation Dohle Bodies Platelet Estimate PT INR APTT PTT Ratio Sodium Potassium Chloride Carbon Dioxide Anion Gap BUN Creatinine Est Cr Clr Drug Dosing Est GFR ( Amer) Est GFR (Non-Af Amer) BUN/Creatinine Ratio Glucose Osmolality Lactate 1.0 Calcium Magnesium Total Bilirubin AST ALT Alkaline Phosphatase Troponin I High Sens Total Protein Albumin Globulin Albumin/Globulin Ratio Lipase Procalcitonin 5.63 H TSH Urine Color Urine Appearance Urine pH Ur Specific [place] Urine Protein Urine Glucose (UA) Urine Ketones Urine Blood Urine Nitrite Urine Bilirubin Urine Urobilinogen Ur Leukocyte Esterase Urine Osmolality Ur Random Sodium SARS-CoV-2 (PCR) Influenza Type A (PCR) Influenza Type B (PCR) RSV (RT-PCR) 10/08/22 10/08/22 10/08/22 05:22 05:22 10:48 WBC RBC Hgb Hct MCV MCH MCHC RDW Std Deviation RDW Coeff of Deandre Plt Count MPV Immature Gran % (Auto) Neut % (Auto) Lymph % (Auto) [place] % (Auto) Eos % (Auto) Baso % (Auto) Neut # (Auto) Lymph # (Auto) [place] # (Auto) Eos # (Auto) Baso # (Auto) Immature Gran # (Auto) Neutrophils % (Manual) Lymphocytes % (Manual) Monocytes % (Manual) Basophils % (Manual) Metamyelocytes % (Man) Blast Cells % (Manual) Neutrophils # (Manual) Total Absolute Neuts Lymphocytes # (Manual) Total Abs Lymphocytes Monocytes # (Manual) Basophils # (Manual) Metamyelocytes # (Man) Blast Cells # (Man) Blood Smear Review Toxic Granulation Dohle Bodies Platelet Estimate PT INR APTT 50.0 H* PTT Ratio 1.8 Sodium 125 L 125 L Potassium 3.6 3.7 Chloride 91 L 90 L Carbon Dioxide 28 29 Anion Gap 6 6 BUN 23 19 Creatinine 0.90 0.87 Est Cr Clr Drug Dosing 84.9 87.9 Est GFR ( Amer) 95.1 96.5 Est GFR (Non-Af Amer) 82.1 83.2 BUN/Creatinine Ratio 25.6 H 21.8 H Glucose 146 H 175 H Osmolality Lactate Calcium 8.3 L 7.9 L Magnesium 1.9 Total Bilirubin AST ALT Alkaline Phosphatase Troponin I High Sens 63.3 H* D 51.3 H* D Total Protein Albumin Globulin Albumin/Globulin Ratio Lipase Procalcitonin TSH Urine Color Urine Appearance Urine pH Ur Specific [place] Urine Protein Urine Glucose (UA) Urine Ketones Urine Blood Urine Nitrite Urine Bilirubin Urine Urobilinogen Ur Leukocyte Esterase Urine Osmolality Ur Random Sodium SARS-CoV-2 (PCR) Influenza Type A (PCR) Influenza Type B (PCR) RSV (RT-PCR) 10/08/22 Unknown WBC RBC Hgb Hct MCV MCH MCHC RDW Std Deviation RDW Coeff of Deandre Plt Count MPV Immature Gran % (Auto) Neut % (Auto) Lymph % (Auto) [place] % (Auto) Eos % (Auto) Baso % (Auto) Neut # (Auto) Lymph # (Auto) [place] # (Auto) Eos # (Auto) Baso # (Auto) Immature Gran # (Auto) Neutrophils % (Manual) Lymphocytes % (Manual) Monocytes % (Manual) Basophils % (Manual) Metamyelocytes % (Man) Blast Cells % (Manual) Neutrophils # (Manual) Total Absolute Neuts Lymphocytes # (Manual) Total Abs Lymphocytes Monocytes # (Manual) Basophils # (Manual) Metamyelocytes # (Man) Blast Cells # (Man) Blood Smear Review Toxic Granulation Dohle Bodies Platelet Estimate PT INR APTT PTT Ratio Sodium Potassium Chloride Carbon Dioxide Anion Gap BUN Creatinine Est Cr Clr Drug Dosing Est GFR ( Amer) Est GFR (Non-Af Amer) BUN/Creatinine Ratio Glucose Osmolality Lactate Calcium Magnesium Total Bilirubin AST ALT Alkaline Phosphatase Troponin I High Sens Total Protein Albumin Globulin Albumin/Globulin Ratio Lipase Procalcitonin TSH Urine Color Urine Appearance Urine pH Ur Specific [place] Urine Protein Urine Glucose (UA) Urine Ketones Urine Blood Urine Nitrite Urine Bilirubin Urine Urobilinogen Ur Leukocyte Esterase Urine Osmolality Ur Random Sodium < 10 SARS-CoV-2 (PCR) Influenza Type A (PCR) Influenza Type B (PCR) RSV (RT-PCR) PG Care Time/CCT Total # of Minutes Spent Total Time Spent with Patient: Total time spent is greater than 50% in coordination of care (as documented) at patient's floor/unit and/or counseling patient: Coding Level of Care Code 83211 IN/OBS CONSULT LVL 3,45M Diagnoses Pulmonary embolism I26.99 Acute cor pulmonale presence: without acute cor pulmonale Chronicity: unspecified Pulmonary embolism type: unspecified Metastatic cancer C79.9 (1) Pulmonary embolism Acute cor pulmonale presence: without acute cor pulmonale Chronicity: unspecified Pulmonary embolism type: unspecified Qualified Code(s): I26.99 - Other pulmonary embolism without acute cor pulmonale
[2022-10-08] MEDS: HEPARIN SODIUM/DEXTROSE 25,000 UNITS/500 ML BAG IV SCH (14:51)
--- NOTE | 2022-10-08 15:28 | Hospitalist Progress Note ---
Date of Service October 08, 2022 Assessment & Plan (1) Acute hyponatremia: Plan 76-year-old male with PMH of gout, HLD, COVID-19 infection, HTN, irregular heart rate, osteoarthritis, recent diagnosis of poorly differentiated neuroendocrine tumor with a lesion in the esophagus with mets to the lungs status post 4 cycles of chemo [last chemo in the end of September] with plan for further chemo who lives alone at home presented to the ED 10/07 with complaint of shortness of breath/dizziness/weakness/increased sleepiness/poor to no appetite for 4-5 days [employer] DES[employer]. 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 At presentation: WBC 2.57K, pulse rate and respiratory rate elevated. Procal elevated, lactate wnl. Admitting CXR: Multifocal airspace opacities favoring pneumonia with or without superimposed aspiration/atelectasis. Admitting CTA chest: Suggestive of PE. 9 cm triangular area of airspace consolidation in RUL consistent with pneumonia. 1.8 x 2.8 cm oval nodular density in the right suprahilar region suggestive of mass versus lymphadenopathy. Recommend short-term follow-up to resolution. Patient started on Zosyn and doxycycline on 10/08, continue with same. Monitor labs, follow-up admitting blood culture. Patient currently on heparin drip, family would like to transition to Eliquis if not cost prohibitive. We will send Eliquis to pharmacy for cost analysis. Continue with telemetry, nebs. Hyponatremia: Likely secondary to poor appetite. Admitting sodium of 121, i mproving. Nephrology on board, appreciate recommendation. Follow labs in AM. Likely type II NSTEMI: Troponin elevated at presentation, patient with no chest pain. Likely secondary to PE versus acute illness. Echo done, right ventricular size and systolic function normal. EF of 60 to 65%. No evidence of right heart strain. Continue to monitor. Pancytopenia: Most likely from chemotherapy, partly contributed by his acute illness. Follow the labs/monitor. 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 Hypertension: Continue with losartan, Lasix on hold due to hyponatremia. DVT prophylaxis: Patient on IV heparin drip, plan to transition to Eliquis if not cost prohibitive. Full code Plan of care discussed with the patient and his family member present at bedside. They voiced understanding and were agreeable to the plan of care. Admission and Anticipated Discharge Date Admission Date: October 08, 2022 Subjective Patient seen and examined at bedside as a follow-up of pneumonia and pulmonary embolism and hyponatremia. Patient was lying in bed, getting his echo scan, on room air, NAD, reports no new acute event overnight, reports feeling okay/eating okay/moving bowels okay. Patient reports some cough, denies febrile illness or belly pain or pain or burning while passing urine or worsening cough in the last 1 week leading up to presentation. Physical Exam Physical Exam: GENERAL: Alert and oriented x3. NAD, on RA. appears ill/frail. HEENT: No pallor, no icterus. Pupils equal, round and reactive to light. Oral mucosa moist. NECK: No JVD, no neck masses. HEART: S1 and S2 heard. Regular rate and rhythm. No murmur, no gallop. RESPIRATORY SYSTEM: Normal AP diameter. No accessory muscle use. No wheezing, no crackles. ABDOMEN: Soft, bowel sounds present, nontender, no distention. CENTRAL NERVOUS SYSTEM: No facial droop. Speech is clear. Obeys simple commands. Moves extremities. EXTREMITIES: trace edema, no erythema seen. Results & Data Results & Data ([facility]) Vital Signs (Past 12 Hours) Vital Signs Temp Pulse Resp BP Pulse Ox O2 Del Method 10/08/22 15:22 37.2 C 96 H 20 160/81 H 92 Room Air 10/08/22 12:27 37 C 98 H 20 151/79 H 92 Room Air 10/08/22 08:00 Room Air 10/08/22 07:17 36.9 C 100 H 20 165/79 H 90 Room Air 10/08/22 05:16 105 H 19 134/74 90 Room Air 10/08/22 04:41 36.7 C 110 H 16 116/67 90 Room Air
[2022-10-08 17:02] LABS: BUN Creatinine Ratio 19.8 (10-20); Calcium 8.2 mg/dl (8.5-10.1); Creatinine Clr Calc Pharmacy 88.9 ml/min; Est GFR (African American) 96.9 ml/min; Est GFR (Non-African American) 83.6 ml/min; Potassium 3.8 mmol/L (3.5-5.1)
[2022-10-08 17:10] LABS: Troponin I High Sensitivity 50.2 pg/ml (0-20)
[2022-10-08 19:34] LABS: A calco-baum cmplx NotReported Not Detected (NotDetected); Bact fragilis Not Reported Not Detected (NotDetected); C auris Not Reported Not Detected (NotDetected); Calbicans Not Reported Not Detected (NotDetected); Candida glabrata Not Reported Not Detected (NotDetected); Candida krusei Not Reported Not Detected (NotDetected); Cneoformans/gatti Not Reported Not Detected (NotDetected); Cparapsilosis Not Reported Not Detected (NotDetected); Ctropicalis Not Reported Not Detected (NotDetected); E cloacae compx Not Reported Not Detected (NotDetected); Efaecalis Not Reported Not Detected (NotDetected); Efaecium Not Reported Not Detected (NotDetected); Enterobacterales Not Reported Not Detected (NotDetected); Escherichia coli Not Reported Not Detected (NotDetected); H influenzae Not Reported Not Detected (NotDetected); K aerogenes Not Reported Not Detected (NotDetected); Koxytoca Not Reported Not Detected (NotDetected); Kpneumoniae grp Not Reported Not Detected (NotDetected); Lmonocyt Not Reported Not Detected (NotDetected); N meningitidis Not Reported Not Detected (NotDetected); P aeruginosa Not Reported Not Detected (NotDetected); Proteus spp Not Reported Not Detected (NotDetected); Salmonella spp Not Reported Not Detected (NotDetected); Smarcescens Not Reported Not Detected (NotDetected); Staph lugdunensis Not Reported Not Detected (NotDetected); Staph spp. Not Reported DETECTED (NotDetected); Staphaureus Not Reported Not Detected (NotDetected); Staphepi Not Reported DETECTED (NotDetected); Staphylococcus epidermidis DETECTED (NotDetected); Stenmaltophilia Not Reported Not Detected (NotDetected); Strep agal(GrpB) Not Reported Not Detected (NotDetected); Strep pneum Not Reported Not Detected (NotDetected); Strep pyog (GrpA) Not Reported Not Detected (NotDetected); Strep spp Not Reported Not Detected (NotDetected); mecAC Resistant Gene Not Detected (NotDetected)
[2022-10-08 19:55] LABS: Staphylococcus spp. DETECTED (NotDetected)
[2022-10-08] MEDS: DOXYCYCLINE HYCLATE 100 MG CAP PO SCH (21:17)
[2022-10-09] MEDS: PIPERACILLIN/TAZOBACTAM 3.375 GM in DEXTROSE 5% 100 ML IV SCH ×3 (05:36→21:56)
--- NOTE | 2022-10-09 05:55 | Electrocardiogram Report ---
Test Reason : Blood Pressure : / mmHG Vent. Rate : 096 BPM Atrial Rate : 096 BPM P-R Int : 188 ms QRS Dur : 072 ms QT Int : 332 ms P-R-T Axes : 046 019 051 degrees QTc Int : 419 ms Poor data quality, interpretation may be adversely affected Sinus rhythm with Premature atrial complexes Otherwise normal ECG When compared with ECG of 04-JUL-2022 13:40, Premature atrial complexes are now Present Confirmed by Deejay Ibrahim ([id number]) on 10/09/2022 5:55:41 AM Referred By: REFERRED SELF Confirmed By:Deejay Ibrahim
[2022-10-09 06:31] LABS: Hematocrit (blood only) 23.1 % (42.0-52.0); Hemoglobin 8.2 g/dl (14.0-18.0); Mean Corpuscular Hemoglobin 31.5 pg (25.0-34.0); Mean Corpuscular Hgb Conc 35.5 g/dL (32.0-36.0); Mean Corpuscular Volume 88.8 fL (80.0-100.0); Mean Platelet Volume 10.5 fL (9.4-12.4); Platelet Count 118 K/uL (130-400); RDW Coefficient of Variation 15.1 % (11.5-14.5); RDW Standard Deviation 47.9 fL (36.4-46.3); Reticulocyte % 1.7 % (0.5-2.0); Reticulocytes # 0.04 10^6/uL (0.02-0.10); White Blood Count 3.91 K/ul (4.8-10.8)
[2022-10-09] MEDS: HEPARIN SODIUM/DEXTROSE 25,000 UNITS/500 ML BAG IV SCH (06:41)
[2022-10-09 06:46] LABS: BUN Creatinine Ratio 16.7 (10-20); Calcium 8.2 mg/dl (8.5-10.1); Creatinine Clr Calc Pharmacy 97.9 ml/min; Est GFR (African American) 100.9 ml/min; Est GFR (Non-African American) 87.1 ml/min; Phosphorus 2.1 mg/dl (2.5-4.9); Potassium 3.6 mmol/L (3.5-5.1)
[2022-10-09 07:06] LABS: Ferritin 1323.6 ng/ml (8-388)
[2022-10-09 07:27] LABS: Partial Thromboplastin Ratio 2.1
[2022-10-09 07:28] LABS: Partial Thromboplastin Time 56.8 Seconds (21.0-31.0)
[2022-10-09] MEDS: DOXYCYCLINE HYCLATE 100 MG CAP PO SCH ×2 (08:12→19:59)
[2022-10-09] MEDS: LOSARTAN POTASSIUM 25 MG TAB PO SCH (08:12)
[2022-10-09] MEDS: UREA (UREA-NA) 15 GM PACK PO SCH ×2 (11:02→19:59)
--- NOTE | 2022-10-09 11:22 | Nephrology Progress Note ---
Date of Service October 09, 2022 Assessment & Plan (1) Acute hyponatremia: Plan: Patient revealed acute hyponatremia likely due to hypovolemia based on the urine studies. Sodium has improved after normal saline at 125. Target sodium is 127 today. -We start urea 15 g twice daily. -We will continue a fluid restriction of 1.2 L daily. -We will can monitor sodium once daily (2) Pulmonary embolism: Plan: Patient found to have acute PE and on heparin drip. He is being transitioned to [facility] Admission and Anticipated Discharge Date Admission Date: October 08, 2022 Subjective Seen for hyponatremia. He feels better today. Still shortness of breath with exertion. He is on heparin drip. No nausea or vomiting. Review of Systems Review of Systems: All other systems were reviewed and negative except as noted in HPI Physical Exam Physical Exam: General exam: Appears comfortable, no acute distress HEENT: Pupils are equal and reactive to light Neck: No JVD, neck is supple trachea is midline Respiratory system: Clear breath sounds bilaterally. Gastrointestinal: Abdomen is soft, non distended, non tender, bowel sounds are present CVS: Regular rate and rhythm. No murmurs, rubs or gallops Musculoskeletal: No joint or muscle tenderness Extremities: Non tender, no edema, peripheral pulses are present Neuro: Oriented, no tremors, no focal neurological deficits Skin: No rashes Results & Data ([facility]) Vital Signs (Past 12 Hours) Vital Signs Temp Pulse Resp BP Pulse Ox Pulse Ox O2 Del Method 10/09/22 07:24 37 C 93 H 18 147/82 H 94 Room Air 10/09/22 02:00 Room Air 10/09/22 03:03 36.4 C L 90 20 132/74 90 Room Air 10/09/22 02:17 93 10/08/22 23:48 36.7 C 97 H 18 137/73 93 Nasal Cannula O2 Del Method O2 Flow Rate 10/09/22 07:24 10/09/22 02:00 10/09/22 03:03 10/09/22 02:17 Room Air 10/08/22 23:48 2.0 Laboratory Results 10/09/22 05:35 10/09/22 10/09/22 05:35 05:35 WBC 3.91 L RBC 2.60 L MCV 88.8 MCH 31.5 MCHC 35.5 RDW Std Deviation 47.9 H RDW Coeff of Deandre 15.1 H Plt Count 118 L MPV 10.5 Phosphorus 2.1 L (2) Pulmonary embolism Acute cor pulmonale presence: without acute cor pulmonale Chronicity: unspecified Pulmonary embolism type: unspecified Qualified Code(s): I26.99 - Other pulmonary embolism without acute cor pulmonale
[2022-10-09] MEDS: POT PHOSPHATE MONOBASIC W/ SOD TAB PO SCH ×3 (12:43→19:58)
--- NOTE | 2022-10-09 14:45 | Hospitalist Progress Note ---
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 He is being managed for the following: Pneumonia/sepsis POA Pulmonary embolism Blood culture positive, likely contamination Patient presents with short of breath for few days [employer] [see above]. At presentation: WBC 2.57K, pulse rate and respiratory rate elevated. Procal elevated, lactate wnl. Admitting CXR: Multifocal airspace opacities favoring pneumonia with or without superimposed aspiration/atelectasis. Admitting CTA chest: Suggestive of PE. 9 cm triangular area of airspace consolidation in RUL consistent with pneumonia. 1.8 x 2.8 cm oval nodular density in the right suprahilar region suggestive of mass versus lymphadenopathy. Recommend short-term follow-up to resolution. Patient started on Zosyn and doxycycline on 10/08, continue with same. Zosyn to Augmentin in AM 10/07 BL Cx: CONS not lugnudensis. 10/09 Bl Cx: pending. Eliquis $47 a month for the patient, pt agreeable to the cost; transition to eliquis 10 mg bid for 7 days from today evening then 5 mg bid from 8th day onwards. Continue with telemetry, [facility]. PT/OT. Hyponatremia: Likely secondary to poor appetite. Admitting sodium of 121, improving. Nephrology on board, appreciate recommendation - on urea currently. Follow labs in AM. Likely type II NSTEMI: Troponin elevated at presentation, patient with no chest pain. Likely secondary to PE versus acute illness. Echo done, right ventricular size and systolic function normal. EF of 60 to 65%. No evidence of right heart strain. Continue to monitor. Pancytopenia: Most likely from chemotherapy, partly contributed by his acute illness. Follow the labs/monitor. Iron profile w/ low iron, iron supplement started 10/09. 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 Hypertension: Continue with losartan, Lasix on hold due to hyponatremia. DVT prophylaxis: Patient on IV heparin drip, plan to transition to Eliquis today evening. Full code Dispo: pt/ot, CM to assist, currently pending negative repeat blood culture and nephro clearance. Admission and Anticipated Discharge Date Admission Date: October 08, 2022 Subjective Patient seen and examined at bedside as a follow-up of pneumonia and pulmonary embolism and hyponatremia. Patient sitting up in bed, on room air, NAD, reports no new acute event overnight, reports feeling okay/eating okay/moving bowels okay. Patient reports some cough and still w/ sob w/ exertion, denies febrile illness or belly pain or pain or burning while passing urine or other ROS. Physical Exam Physical Exam: GENERAL: Alert and oriented x3. NAD, on RA. appears ill/frail. HEENT: No pallor, no icterus. Pupils equal, round and reactive to light. Oral mucosa moist. NECK: No JVD, no neck masses. HEART: S1 and S2 heard. Regular rate and rhythm. No murmur, no gallop. RESPIRATORY SYSTEM: Normal AP diameter. No accessory muscle use. No wheezing, no crackles. ABDOMEN: Soft, bowel sounds present, nontender, no distention. CENTRAL NERVOUS SYSTEM: No facial droop. Speech is clear. Obeys simple commands. Moves extremities. EXTREMITIES: trace edema, no erythema seen. Results & Data Results & Data ([facility]) Vital Signs (Past 12 Hours) Vital Signs Temp Pulse Resp BP Pulse Ox O2 Del Method 10/09/22 11:26 36.6 C 94 H 18 140/71 95 Room Air 10/09/22 07:24 37 C 93 H 18 147/82 H 94 Room Air 10/09/22 03:03 36.4 C L 90 20 132/74 90 Room Air
[2022-10-09] MEDS: APIXABAN 5 MG TABLET PO SCH (19:59)
[2022-10-09] MEDS ORDERED: STOP ORDER [HEPARIN DRIP] ONE (20:00)
[2022-10-10] MEDS ORDERED: HEPARIN 100 UNIT/ML 5ML FLUSH FLUSH PRN (02:37)
[2022-10-10] MEDS: PIPERACILLIN/TAZOBACTAM 3.375 GM in DEXTROSE 5% 100 ML IV SCH ×3 (05:08→22:07)
[2022-10-10 06:34] LABS: Hematocrit (blood only) 25.5 % (42.0-52.0); Hemoglobin 8.8 g/dl (14.0-18.0); Mean Corpuscular Hemoglobin 31.2 pg (25.0-34.0); Mean Corpuscular Hgb Conc 34.5 g/dL (32.0-36.0); Mean Corpuscular Volume 90.4 fL (80.0-100.0); Platelet Count 157 K/uL (130-400); RDW Coefficient of Variation 15.4 % (11.5-14.5); RDW Standard Deviation 50.2 fL (36.4-46.3); Red Blood Count 2.82 M/uL (4.70-6.10); White Blood Count 4.54 K/ul (4.8-10.8)
[2022-10-10 06:57] LABS: BUN Creatinine Ratio 25.6 (10-20); Calcium 8.9 mg/dl (8.5-10.1); Creatinine Clr Calc Pharmacy 92.2 ml/min; Est GFR (African American) 98.9 ml/min; Est GFR (Non-African American) 85.3 ml/min; Phosphorus 2.8 mg/dl (2.5-4.9); Potassium 3.6 mmol/L (3.5-5.1)
[2022-10-10] MEDS: DOXYCYCLINE HYCLATE 100 MG CAP PO SCH ×2 (08:29→20:29)
[2022-10-10] MEDS: POT PHOSPHATE MONOBASIC W/ SOD TAB PO SCH ×4 (08:30→20:29)
[2022-10-10] MEDS: APIXABAN 5 MG TABLET PO SCH ×2 (08:30→20:29)
[2022-10-10] MEDS: LOSARTAN POTASSIUM 25 MG TAB PO SCH (08:30)
[2022-10-10] MEDS: FERROUS GLUCONATE 324 MG TAB PO SCH (08:30)
[2022-10-10] MEDS: UREA (UREA-NA) 15 GM PACK PO SCH (08:31)
--- NOTE | 2022-10-10 11:55 | Nephrology Progress Note ---
Date of Service October 10, 2022 Assessment & Plan (1) Acute hyponatremia: Plan: Patient revealed acute hyponatremia likely due to hypovolemia based on the urine studies. Sodium is normal today at 136. We can stop urea. Patient can be discharged on a fluid restriction of 1.5 L daily. He will need repeat BMP mid next week. He has labs scheduled for the oncologist on Thursday and most likely this will include a BMP. We should book nephrology follow-up in 2 weeks with myself either in [facility] or [facility] to determine if patient will need urea going forward -We will continue a fluid restriction of 1.5 L daily. (2) Pulmonary embolism: Plan: Patient found to have acute PE and on Eliquis Admission and Anticipated Discharge Date Admission Date: October 08, 2022 Subjective Seen in follow-up for electrolyte imbalance. He feels better today. No nausea or vomiting. He had some positive blood cultures on admission likely contam inant. Review of Systems Review of Systems: All other systems were reviewed and negative except as noted in HPI Physical Exam Physical Exam: General exam: Appears comfortable, no acute distress HEENT: Pupils are equal and reactive to light Neck: No JVD, neck is supple trachea is midline Respiratory system: Clear breath sounds bilaterally. Gastrointestinal: Abdomen is soft, non distended, non tender, bowel sounds are present CVS: Regular rate and rhythm. No murmurs, rubs or gallops Musculoskeletal: No joint or muscle tenderness Extremities: Non tender, no edema, peripheral pulses are present Neuro: Oriented, no tremors, no focal neurological deficits Skin: No rashes Results & Data ([facility]) Vital Signs (Past 12 Hours) Vital Signs Temp Pulse Resp BP Pulse Ox O2 Del Method 10/10/22 07:49 36.5 C 85 19 154/81 H 93 Room Air 10/10/22 04:09 36.6 C 94 H 20 148/74 H 90 Room Air Laboratory Results 10/10/22 05:58 10/10/22 10/10/22 05:58 05:58 WBC 4.54 L RBC 2.82 L MCV 90.4 MCH 31.2 MCHC 34.5 RDW Std Deviation 50.2 H RDW Coeff of Deandre 15.4 H Plt Count 157 MPV 10.0 Phosphorus 2.8 (2) Pulmonary embolism Acute cor pulmonale presence: without acute cor pulmonale Chronicity: unspecified Pulmonary embolism type: unspecified Qualified Code(s): I26.99 - Other pulmonary embolism without acute cor pulmonale
--- NOTE | 2022-10-10 15:34 | Hospitalist Progress Note ---
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 He is being managed for the following: Pneumonia/sepsis POA Pulmonary embolism Blood culture positive, likely contamination Patient presents with short of breath for few days [employer] [see above]. At presentation: WBC 2.57K, pulse rate and respiratory rate elevated. Procal elevated, lactate wnl. Admitting CXR: Multifocal airspace opacities favoring pneumonia with or without superimposed aspiration/atelectasis. Admitting CTA chest: Suggestive of PE. 9 cm triangular area of airspace consolidation in RUL consistent with pneumonia. 1.8 x 2.8 cm oval nodular density in the right suprahilar region suggestive of mass versus lymphadenopathy. Recommend short-term follow-up to resolution. Patient started on Zosyn and doxycycline on 10/08, continue with same. Zosyn to Augmentin in AM 10/07 BL Cx: CONS not lugnudensis. 10/09 Bl Cx: NG 24 hours Eliquis $47 a month for the patient, pt agreeable to the cost; transitioned to eliquis 10 mg bid for 7 days from 10/09 evening then 5 mg bid from 8th day onwards. Continue with telemetry, [facility]. PT/OT. Hyponatremia: Likely secondary to poor appetite. Admitting sodium of 121, improved. Nephrology on board, appreciate recommendation - Urea DC'd, FR 1.5 L/day. Follow labs in AM. Nephro on DC. Likely type II NSTEMI: Troponin elevated at presentation, patient with no chest pain. Likely secondary to PE versus acute illness. Echo done, right ventricular size and systolic function normal. EF of 60 to 65%. No evidence of right heart strain. Continue to monitor. Pancytopenia: Most likely from chemotherapy, partly contributed by his acute illness. Follow the labs/monitor. Iron profile w/ low iron, iron supplement started 10/09. 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 Hypertension: Continue with losartan, Lasix on hold due to hyponatremia. DVT prophylaxis: araceli Full code Dispo: likely yulia. Admission and Anticipated Discharge Date Admission Date: October 08, 2022 Subjective Patient seen and examined at bedside as a follow-up of pneumonia and pulmonary embolism and hyponatremia. Patient sitting up in chair, on room air, NAD, reports no new acute event overnight, reports feeling okay/eating okay/moving bowels okay. Patient reports some cough and still w/ sob w/ exertion, denies febrile illness or belly pain or pain or burning while passing urine or other ROS. d/w pt/ot who reported pt did well and maintained SpO2 > 91% with activity. Pt reports feeling week and would like to go home yulia. Physical Exam Physical Exam: GENERAL: Alert and oriented x3. NAD, on RA. appears ill/frail. HEENT: No pallor, no icterus. Pupils equal, round and reactive to light. Oral mucosa moist. NECK: No JVD, no neck masses. HEART: S1 and S2 heard. Regular rate and rhythm. No murmur, no gallop. RESPIRATORY SYSTEM: Normal AP diameter. No accessory muscle use. No wheezing, no crackles. ABDOMEN: Soft, bowel sounds present, nontender, no distention. CENTRAL NERVOUS SYSTEM: No facial droop. Speech is clear. Obeys simple commands. Moves extremities. EXTREMITIES: trace edema, no erythema seen. Results & Data Results & Data ([facility]) Vital Signs (Past 12 Hours) Vital Signs Temp Pulse Resp BP Pulse Ox O2 Del Method 10/10/22 11:56 36.9 C 89 20 148/77 H 94 Room Air 10/10/22 07:49 36.5 C 85 19 154/81 H 93 Room Air 10/10/22 04:09 36.6 C 94 H 20 148/74 H 90 Room Air
[2022-10-11 05:10] LABS: Hematocrit (blood only) 25.3 % (42.0-52.0); Hemoglobin 8.5 g/dl (14.0-18.0); Mean Corpuscular Hemoglobin 30.6 pg (25.0-34.0); Mean Corpuscular Hgb Conc 33.6 g/dL (32.0-36.0); Mean Platelet Volume 9.6 fL (9.4-12.4); Nucleated RBC # (auto) 0.06 K/uL (0-0.12); Nucleated RBC % (auto) 0.9 %; Platelet Count 186 K/uL (130-400); RDW Coefficient of Variation 15.5 % (11.5-14.5); Red Blood Count 2.78 M/uL (4.70-6.10); White Blood Count 6.62 K/ul (4.8-10.8)
[2022-10-11 05:30] LABS: BUN Creatinine Ratio 18.8 (10-20); Calcium 8.6 mg/dl (8.5-10.1); Est GFR (African American) 97.4 ml/min; Magnesium 1.7 mg/dl (1.7-2.4); Phosphorus 3.8 mg/dl (2.5-4.9); Potassium 3.7 mmol/L (3.5-5.1)
[2022-10-11] MEDS: PIPERACILLIN/TAZOBACTAM 3.375 GM in DEXTROSE 5% 100 ML IV SCH ×2 (05:53→13:47)
--- NOTE | 2022-10-11 06:20 | Hospitalist Progress Note ---
Date of Service October 11, 2022 Assessment & Plan (1) Pulmonary embolism: Plan: Doing well on apixaban, anticipate long-term continuation Plan Patient seems quite stable overall with residual issue is the ultimate persp ectives and plans with regards to his bacteremia. He is having no ongoing symptomatology suggesting any further threat from his VTE and seems to be tolerating the apixaban well. He is scheduled to be seen in our offices on October 15, anticipate discharge well prior to that. We will sign off but please reconsult if additional questions arise during this hospitalization Admission and Anticipated Discharge Date Admission Date: October 08, 2022 Results & Data Results & Data ([facility]) Vital Signs (Past 12 Hours) Vital Signs Temp Pulse Pulse Resp BP BP Pulse Ox 10/11/22 02:41 93 10/11/22 02:40 36.8 C 89 18 133/75 86 L 10/11/22 02:00 10/10/22 19:15 10/10/22 22:08 97 H 10/10/22 22:51 36.7 C 90 20 144/75 H 92 10/10/22 19:39 37.1 C 105 H 20 155/79 H 94 Pulse Ox O2 Del Method O2 Del Method O2 Flow Rate 10/11/22 02:41 Nasal Cannula 1 10/11/22 02:40 Room Air 10/11/22 02:00 94 Room Air 10/10/22 19:15 Room Air 10/10/22 22:08 10/10/22 22:51 Room Air 10/10/22 19:39 Room Air PG Care Time/CCT Total # of Minutes Spent Total Time Spent with Patient: Total time spent is greater than 50% in coordination of care (as documented) at patient's floor/unit and/or counseling patient: Coding Level of Care Code None Diagnoses Pulmonary embolism I26.99 Acute cor pulmonale presence: without acute cor pulmonale Chronicity: unspecified Pulmonary embolism type: unspecified (1) Pulmonary embolism Acute cor pulmonale presence: without acute cor pulmonale Chronicity: unspecified Pulmonary embolism type: unspecified Qualified Code(s): I26.99 - Other pulmonary embolism without acute cor pulmonale
[2022-10-11] MEDS: FERROUS GLUCONATE 324 MG TAB PO SCH (07:37)
[2022-10-11] MEDS: APIXABAN 5 MG TABLET PO SCH (07:37)
[2022-10-11] MEDS: LOSARTAN POTASSIUM 25 MG TAB PO SCH (07:37)
[2022-10-11] MEDS: DOXYCYCLINE HYCLATE 100 MG CAP PO SCH (07:37)
[2022-10-11] MEDS: POT PHOSPHATE MONOBASIC W/ SOD TAB PO SCH (07:38)
--- NOTE | 2022-10-11 13:08 | Discharge Summary ---
Date of Service October 11, 2022 Admission HPI Per Admitting Provider CHIEF COMPLAINT: Shortness of breath. 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 There is plan for further chemo as per the patient. He lives alone at home. Last few days, he is having shortness of breath, dizziness, weakness, and since last Thursday and Thursday, he slept whole days, did not feel like eating anything, and Thursday drank lot of water and then Thursday, he was able to micturate. He called his oncology office and advised to come to the ER. In the ER, he was found to have PE and also pneumonia. The patient denies any fevers, no cough. Last weekend, on for half day, he lost his voice because of hoarseness, currently speaking okay. Denies any chest pain, no headache, no blurred visions, no earache, no runny nose. Denies any difficulty swallowing. No abdominal pain. Feeling somewhat nauseous and feels belly is bloated. Denies any diarrhea or constipation. No swelling in the legs. His ambulatory status is not that great. He is staggering at home, does not use any cane. He says walking in the room is making him short of breath. Currently, in the ER he is saturating okay on the room air, hemodynamically stable. ALLERGIES: OXYCODONE. PAST MEDICAL HISTORY: As mentioned above. PAST SURGICAL HISTORY: Arthroscopy of left knee, bilateral cataract extraction, carpal tunnel surgery of left wrist, colonoscopy, eye surgery, hand surgery, hernia repair, lumbar spinal fusion, tooth extraction, bilateral knee replacements. FAMILY HISTORY: Significant for father had cancer, uncle has cancer, mother had pneumonia. SOCIAL HISTORY: Former smoker, quit in 2017. He says he drinks a couple of beers, but in the last 3 weeks he has not drank any alcohol. Lives alone. MEDICATIONS: The patient states he is only taking losartan 25 mg p.o. daily. REVIEW OF SYSTEMS: As per HPI. Rest of review of systems is negative. Admission Exam Per Admitting Provider GENERAL: The patient is of moderate built, not in acute distress. VITAL SIGNS: Temperature 36.9, pulse 96, respiratory rate 24, blood pressure 150/61, oxygen 92% on room air. HEENT: Pupils equal, round and reactive to light. Oral mucosa moist. NECK: No JVD, no neck masses. CARDIOVASCULAR: S1 and S2 heard. Regular rate and rhythm. No murmur, no gallop. RESPIRATORY SYSTEM: Normal AP diameter. No accessory muscle use. No wheezing, no crackles. ABDOMEN: Soft, bowel sounds present, nontender, no distention. CENTRAL NERVOUS SYSTEM: Cranial nerves II through XII are grossly intact, nonfocal. EXTREMITIES: No edema, no erythema. 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 NAD, on RA. HEENT: No pallor, no icterus. Pupils equal, round and reactive to light. Oral mucosa moist. NECK: No JVD, no neck masses. HEART: S1 and S2 heard. Regular rate and rhythm. No murmur, no gallop. RESPIRATORY SYSTEM: Normal AP diameter. No accessory muscle use. No wheezing, no crackles. ABDOMEN: Soft, bowel sounds present, nontender, no distention. CENTRAL NERVOUS SYSTEM: No facial droop. Speech is clear. Obeys simple commands. Moves extremities. EXTREMITIES: trace edema, no erythema seen. 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 He was managed for the following: Pneumonia/sepsis POA Pulmonary embolism Blood culture positive, likely contamination Patient presents with short of breath for few days [employer] [see above]. At presentation: WBC 2.57K, pulse rate and respiratory rate elevated. Procal elevated, lactate wnl. Admitting CXR: Multifocal airspace opacities favoring pneumonia with or without superimposed aspiration/atelectasis. Admitting CTA chest: Suggestive of PE. 9 cm triangular area of airspace consolidation in RUL consistent with pneumonia. 1.8 x 2.8 cm oval nodular density in the right suprahilar region suggestive of mass versus lymphadenopathy. Recommend short-term follow-up to resolution. Patient started on Zosyn and doxycycline on 10/08, --> Augmentin and doxy on discharge to complete the course. 10/07 BL Cx: CONS not lugnudensis. 10/09 Bl Cx: NG 48 hours Eliquis $47 a month for the patient, pt agreeable to the cost; transitioned to eliquis 10 mg bid for 7 days from 10/09 evening then 5 mg bid from 8th day onwards. Chest imaging in a month time upon discharge, patient aware. Hyponatremia: Likely secondary to poor appetite. Admitting sodium of 121, improved. Nephrology evaled, appreciate recommendation - Urea DC'd, FR 1.5 L/day. Nephro on DC. Likely type II NSTEMI: Troponin elevated at presentation, patient with no chest pain. Likely secondary to PE versus acute illness. Echo done, right ventricular size and systolic function normal. EF of 60 to 65%. No evidence of right heart strain. Continue to monitor. Pancytopenia: Most likely from chemotherapy, partly contributed by his acute illness. Follow the labs/monitor. Iron profile w/ low iron, iron supplement started 10/09. 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 Hypertension: Continue with home meds. DVT prophylaxis: eliquis Full code Patient being discharged to home with following instruction at the point of discharge: Follow-up with the primary care physician within 1 week time and likely you will need labs CBC/CMP/magnesium/phosphorus. Follow-up with your cancer doctor as prior. You were treated for pneumonia and pulmonary embolism while in the hospital. You will need a repeat chest imaging in 4 weeks time to document resolution of your lung lesions. Coordinate with your primary care office for setting up the test. You will be discharged on antibiotic, complete the course as prescribed. You will be discharged on Eliquis, take 10 mg twice a day for 7 days (up to the morning dose of 04/18/2023], then take 5 mg twice a day from the evening dose of 04/18/2023. Maintain low-sodium diet, incorporate adequate protein in your diet. Maintain fluid restriction of 1.5 L/day, follow up with nephrology in 1-2 weeks time. Take your medications as prescribed. Please make sure that you are able to get your medications today by calling your pharmacy before you leave the hospital so that your treatment continuity is not broken. Home Health Attestation I certify that this patient is under my care and that I, or a physicians healthcare administrative assistant working with me, had a face to-face encounter that meets the home health [id number]-[id number] encounter requirements with this patient. The encounter with the patient was in whole, or in part, for the following me dical condition, which is the primary reason for home health care (list medical condition): I certify that, based on my findings, the following services are medically neces [facility] home health services: My clinical findings support the need for the above services because: Further, I certify that my clinical findings support that this patient is homebound (i.e. absences from home require considerable and taxing effort and are for medical reasons or sabianism services or infrequently or of short duration when for other reasons) because: Certification for Home Health Services: Based on the above findings, I certify that this patient is confined to the home and needs intermittent jail care, physical therapy and/or speech therapy or continues to need occupational therapy. The patient is under my care, and I have initiated the establishment of the plan of care. This patient will be followed by a physician who will periodically review the plan of care. 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 [Primary Care Provider] - (Dr Dooley's Transition of Care Nurse will be calling you with a hospital follow up appointment. ) Radha Johnson MD [Physician] - (Date & Time 10/24/2022 1:00 PM Provider Radha Johnson MD Department Nephrology, [facility] This appointment is located at the Nephrology clinic inside [facility]. Please take the elevator to the 3rd floor .) Diet: Heart Healthy Diet Texture: Easy to Chew Addtl Attending Provider Instructions: Follow-up with the primary care physician within 1 week time and likely you will need labs CBC/CMP/magnesium/phosphorus. Follow-up with your cancer doctor as prior. You were treated for pneumonia and pulmonary embolism while in the hospital. You will need a repeat chest imaging in 4 weeks time to document resolution of your lung lesions. Coordinate with your primary care office for setting up the test. You will be discharged on antibiotic, complete the course as prescribed. You will be discharged on Eliquis, take 10 mg twice a day for 7 days (up to the morning dose of 04/18/2023], then take 5 mg twice a day from the evening dose of 04/18/2023. Maintain low-sodium diet, incorporate adequate protein in your diet. Maintain fluid restriction of 1.5 L/day, follow up with nephrology in 1-2 weeks time. Take your medications as prescribed. Please make sure that you are able to get your medications today by calling your pharmacy before you leave the hospital so that your treatment continuity is not broken. Pending Studies at Discharge: Yes (Blood culture final results.) Stand-Alone Forms: My [employer], Smoking Cessation Medications and DC Order Prescriptions: New Eliquis 5 mg tablet 5 mg PO BID Qty: 74 0RF Rx Instructions: 10 mg twice a day for 7 days then 5 mg twice a day thereafter. doxycycline hyclate 100 mg Capsule 100 mg PO BID 4 Days Qty: 8 0RF ferrous gluconate 324 mg (38 mg iron) Tablet 324 mg PO QAM Qty: 30 0RF amoxicillin-pot clavulanate 875-125 mg tablet 1 tab PO BID 5 Days Qty: 10 0RF Probiotic 3 billion cell capsule 3,000 mmu cells PO DAILY 7 Days Qty: 7 0RF Rx Instructions: administer with a meal Continued losartan 25 mg Tablet 25 mg PO QAM ondansetron 8 mg tablet,disintegrating 8 mg PO Q8 PRN (Reason: Nausea) furosemide 20 mg tablet 20 mg PO DAILY Discharge Orders: Discharge Order (Routine); Ordered 10/11/22 Ordered By: Anahy Watkins Admission Data Admit Date/Time: 10/08/22 00:18 Attending Provider: Anahy Watkins Admit Provider: Aly Rothman Primary Care Provider: Hermelinda Dooley Other Providers: Aly Rothman ; Radha Johnson ; Ajit Gomes
== END 2022-10-11 14:43 | disposition home or self-care (01) | DRG 871 ==
LOC: ED 18:30 → 4W 10-08 00:18